=== PATIENT | male | born 1985 | race African-American/Black ===

== ENCOUNTER 2025-08-04 13:00 | Inpatient (IN) | payer OTHER ==
[2025-08-04] VITALS (31 sets, daily range): BP systolic 85–120; BP diastolic 48–100; PULSE 74–92; RESP 12–26; TEMP 97.8–100.6; O2SAT 93–100
[~2025-08-04] VITALS: Ht 177.8 cm; Wt 81.1 kg
--- NOTE | 2025-08-04 13:46 | ED.PDOC ---
History of Present Illness HPI Comments 39-year-old male presents to the ED via EMS for an evaluation of hypotension. [facility]. Initially patient reports that he developed a headache last night, woke up today with pounding pain in which he took an ibuprofen in it relieved it temporarily. He reports after having lunch today, pain presented once associated now with nausea and two episodes of nonbilious nonbloody emesis. At bedside patient's blood pressure is 82/51 and he is complaining of shortness a breath. He denies any chest pain, fever, palpitation, leg swelling. He denies any medical history or allergies. Chief Complaint: Low Blood Pressure Time Seen by MD: 13:27 Reviewed Notes: Nurses Notes, Medications, Allergies Allergies: Coded Allergies: NO KNOWN ALLERGIES (Unverified , 08/04/25) Information Source: Patient, Emergency Med Personnel Mode of Arrival: EMS Severity: Moderate Timing: Hours Duration: Since onset Past Medical History PAST MEDICAL HISTORY: Denies Surgical History: Denies all surgeries Family History Family History: Reviewed,noncontributory to illness Social History Smoker: Non-Smoker Alcohol: Denies ETOH Use Drugs: Denies Drug Use Lives In: Other Constitutional: reports: malaise; denies: chills, diaphoresis, fatigue, fever, sweats, weakness, others EENTM: denies: blurred vision, double vision, ear bleeding, ear discharge, ear drainage, ear pain, ear ringing, eye pain, eye redness, hearing loss, mouth pain, mouth swelling, nasal discharge, nose bleeding, nose congestion, nose pain, photophobia, tearing, throat pain, throat swelling, voice changes, others Respiratory: reports: SOB at rest, shortness of breath; denies: cough, hemoptysis, orthopnea, SOB with excertion, stridor, wheezing, others Cardiovascular: denies: chest pain, dizzy spells, diaphoresis, Dyspnea on exertion, edema, irregular heart beat, left arm pain, lightheadedness, palpitations, PND, syncope, others Gastrointestinal: reports: nausea, vomiting; denies: abdomen distended, abdom inal pain, blood streaked bowels, constipated, diarrhea, dysphagia, difficulty swallowing, hematemesis, melena, poor appetite, poor fluid intake, rectal bleeding, rectal pain, others Genitourinary: denies: burning, dysuria, flank pain, frequency, hematuria, incontinence, penile discharge, penile sore, pain, testicle pain, testicle swelling, urgency, others Neurological: reports: headache; denies: dizziness, fainting, left sided numbness, left sided weakness, numbness, paresthesia, pre-existing deficit, right sided numbness, right sided weakness, seizure, speech problems, tingling, tremors, weakness, others Musculoskeletal: denies: back pain, gout, joint pain, joint swelling, muscle pain, muscle stiffness, neck pain, others Integumetry: denies: bruises, change in color, change in hair/nails, dryness, laceration, lesions, lumps, rash, wounds, others Allergic/Immunocompromised: denies: Difficulty Healing, Frequent Infections, Hives, Itching, others Hematologic/Lymphatic: denies: anemia, blood clots, easy bleeding, easy bruising, swollen glands, others Endocrine: denies: excessive hunger, excessive sweating, excessive thirst, excessive urination, flushing, intolerance to cold, intolerance to heat, unexplained weight gain, unexplained weight loss, others Psychiatric: denies: anxiety, bipolar disorder, depression, hopeless, panic disorder, schizophrenia, sleepless, suicidal, others All Other Systems: Reviewed and Negative Physical Exam General Appearance: Moderate Distress HEENT: Normal ENT Inspection, Pharynx Normal, TMs Normal Neck: Full Range of Motion, Non-Tender, Normal, Normal Inspection Respiratory: Chest Non-Tender, Lungs Clear, No Accessory Muscle Use, No Respiratory Distress, Normal Breath Sounds Cardiovascular: No Edema, No JVD, No Murmur, No Gallop, Normal Peripheral Pulses, Regular Rate/Rhythm Breast Exam: Deferred Gastrointestinal: No Organomegaly, Non Tender, No Pulsatile Mass, Normal Bowel Sounds, Soft Genitalia: Deferred Pelvic: Deferred Rectal: Deferred Extremities: No calf tenderness, Normal capillary refill, Normal inspection, Normal range of motion, Non-tender, No pedal edema Musculoskeletal : Apperance: Normal Neurologic: Alert, director of perioperative services II-XII nml as Tested, No Motor Deficits, Normal Affect, Normal Mood, No Sensory Deficits Cerebellar Function: NOT DONE Reflexes: NOT DONE Skin: Dry, Normal Color, Warm Peripheral Pulses: 3+ Radial (R), 3+ Radial (L) Lymphatic: No Adenopathy Was a procedure done? Was a procedure done?: Yes Sedation Sedation?: No Central Line Recorder of insertion practice: Puppet Master Occupation of pallet stone inserter: Attending Physician Indication: Hypotension, CVP monitoring Room prepared for procedure: Yes Puppet Master performed hand hygien: Yes Maximal sterile barrier precau: Mask/Eye shield, Sterile gown Skin Preparation: Chlorhexidine gluconate, Providine iodine Skin preparation completely dr: Yes Insertion site: Right, Internal jugular Central line catheter type: Kqy-chcomtqs-kmy dialysis Number of lumens: 3 EKG EKG : ST: Inf Differential Dx Considerations may include: Dehydration, electrolyte imbalance, migraines, clustered headaches, viral syndrome, hypotensive X-Ray, Labs, Meds, VS Vital Signs Date Time Temp Pulse Resp B/P (MAP) Pulse Ox O2 Delivery O2 Flow Rate FiO2 08/04/25 14:53 74 08/04/25 13:07 75 08/04/25 13:01 99.0 76 18 74/48 98 99.0 Lab Test 08/04/25 14:55 08/04/25 14:45 08/04/25 14:11 Range/Units SARS-CoV-2 Antigen (Rapid) Pending Influenza Type A Antigen Pending Influenza Type B Antigen Pending White Blood Count 4.3 L 4.4-10.8 10^3/uL Red Blood Count 4.35 L 4.5-5.90 10^6/uL Hemoglobin 12.1 L 13.5-17.5 g/dL Hematocrit 36.9 L 41.0-53.0 % Mean Corpuscular Volume 84.7 80.0-100.0 fL Mean Corpuscular Hemoglobin 27.9 L 28.0-32.0 pg Mean Corpuscular Hemoglobin Concent 32.9 32.0-36.0 g/dL Red Cell Distribution Width 13.8 11.8-14.3 % Platelet Count 191 140-450 10^3/uL Mean Platelet Volume 7.8 6.9-10.8 fL Neutrophils (%) (Auto) 72.2 37.0-80.0 % Lymphocytes (%) (Auto) 17.7 10.0-50.0 % Monocytes (%) (Auto) 9.7 0.0-12.0 % Eosinophils (%) (Auto) 0.2 0.0-7.0 % Basophils (%) (Auto) 0.2 0.0-2.0 % Neutrophils # (Auto) 3.1 1.6-8.6 10 ^3/uL Lymphocytes # (Auto) 0.8 0.4-5.4 10 ^3/uL Monocytes # (Auto) 0.4 0-1.3 10 ^3/uL Eosinophils # (Auto) 0 0-0.8 10 ^3/uL Basophils # (Auto) 0 0-0.2 10 ^3/uL Nucleated Red Blood Cells 0.1 % Sodium Level 142 136-145 mmol/L Potassium Level 4.3 3.5-5.1 mmol/L Chloride Level 109 H 98-107 mmol/L Carbon Dioxide Level 23 20-31 mmol/L Anion Gap 10 5-15 Blood Urea Nitrogen 22 9-23 mg/dL Creatinine 1.08 0.700-1.30 mg/dL Glomerular Filtration Rate Calc 91 >90 mL/min BUN/Creatinine Ratio 20.4 H 10.0-20.0 Serum Glucose 115 H 74-106 mg/dL Hemoglobin A1c Pending Calcium Level 8.6 L 8.7-10.4 mg/dL Total Bilirubin 0.5 0.2-1.0 mg/dL Aspartate Amino Transferase (AST) 107 H 13-40 U/L Alanine Aminotransferase (ALT) 27 7-40 U/L Alkaline Phosphatase 82 46-116 U/L Troponin I High Sensitivity 83450 *H </=54 ng/L Total Protein 6.1 5.7-8.2 g/dL Albumin 3.6 3.2-4.8 g/dL Thyroid Stimulating Hormone (TSH) Pending Free Thyroxine (T4) Calculated Pending Current Medications Medications (Trade) Dose Ordered Sig/Luan Route Start Time Stop Time Status Last Admin Sodium Chloride 1,000 ml @ 1,000 mls/hr Q1H ONCE IV 08/04/25 14:00 08/04/25 14:59 DC 08/04/25 14:09 Heparin Sodium (Porcine) 5,000 units ONCE ONCE IV 08/04/25 14:45 08/04/25 14:46 DC 08/04/25 15:05 Aspirin 325 mg ONCE ONCE PO 08/04/25 14:45 08/04/25 14:46 DC 08/04/25 15:04 Patient alert. Generalized symptoms. Blood pressure low. Saturation pristine on room air. Establish intravenous access. Was given fluids. Heart rate within normal limits. Unknown why he has low blood pressure. Possible viral induced. EKG does show ischemic changes pain Started heparin. Placed a central line. Cardiac marker elevated. Cardiology consultation. Explained to the patient. Continue monitoring. Time of 1ST Reevaluation: 13:45 Reevaluation 1ST: Unchanged Patient Education/Counseling: Diagnosis, Treatment, Prognosis Family Education/Counseling: No Family Present SEPSIS Sepsis Screen Date sepsis recognized/suspect: Aug 04, 2025 Time Sepsis recognized/suspect: 1300 Recent Procedure: No On Antibiotic Therapy: No Respiratory Rate >20: No Heart Rate >90: No Temp<36 C (96.8 F) or >38.3 C: No SBP <90 or MAP <65 mmHG: No New Acute Mental Status Change: No Is the patient on CPAP, BIPAP,: No Physician Orders Electrocardigram (08/04/25 13:09) Rapid Influenza A&B (08/04/25 14:00) Covid19 Antigen Sarah (08/04/25 ) Chest Portable (08/04/25 14:00) Urinalysis (08/04/25 14:00) Sodium Chloride 0.9% (08/04/25 14:00) * Cardiology Consult (08/04/25 14:44) Troponin-I Hs (08/04/25 14:44) Electrocardigram (08/04/25 14:44) Troponin-I Hs (08/04/25 15:44) Electrocardigram (08/04/25 15:44) Electrocardigram (08/04/25 17:44) Ct Ab Pel Wo Con-No Oral Or Iv (08/04/25 14:58) Echo 2d Mode Cardiac Dop (08/04/25 15:03) Head Without Contrast (08/04/25 15:13) Obtain Consent For: (08/04/25 15:13) Hold Enoxaparin Day Of Procedu (08/05/25 00:01) D/C Tlc (08/04/25 15:13) Shave Both Groins (08/04/25 15:13) Provide Education Materials (08/04/25 15:13) Obtain Consent For Anesthesia (08/04/25 15:13) Norepinephrine 8 Mg/250ml Kit (Levophed) (08/04/25 15:30) Cl Left Heart Cath (08/04/25 15:21) Admit (08/04/25 15:) Code Status (08/04/25:) Vital Signs .PER UNIT PROTOCOL (08/04/25:) Insurance Instructor (08/04/25:) Aspirin Chewable Tablet (08/05/25 10:00) Atorvastatin (Lipitor) (08/04/25 22:00) Morphine Sulfate Injection (08/04/25 15:30) Acetaminophen Tablet (Tylenol Tablet) (08/04/25 15:30) Complete Blood Count (08/05/25 04:00) Basic Metabolic Panel (08/05/25 04:00) Magnesium (08/05/25 04:00) Lipid Panel (08/05/25 04:00) Nitroglycerin Sublingual (Ntrostat Subli (08/04/25:30) Ondansetron Hcl (Zofran) (08/04/25 15:30) Electrocardigram (08/05/25 04:00) Troponin-I Hs (08/05/25 04:00) Cardiac Rehabilitation - Outpa (08/04/25 ) Nitroglycerin Sublingual (Ntrostat Subli (08/04/25 15:30) Morphine Sulfate Injection (08/04/25:30) Stat Ekg For Chest Pain (08/04/25:) Notify Of Changes From Base (08/04/25:) Duplicating Machine Servicer For 24 Hours (08/04/25 15:) Emergency Dysrhythmia Protocol (08/04/25:) Rhythm Strips Once Every Shift (08/04/25:) Oxygen By Nasal Cannula (08/04/25:) Thyroid Stimulating Hormone (08/04/25:) Free T4 (Free Thyroxine) (08/04/25:) Hemoglobin A1c (08/04/25:) Urinalysis (08/04/25:) Drug Screen (08/04/25:) Vital Signs Date Time Temp Pulse Resp B/P (MAP) Pulse Ox O2 Delivery O2 Flow Rate FiO2 08/04/25 14:53 74 08/04/25 13:07 75 08/04/25 13:01 99.0 76 18 74/48 98 99.0 Laboratory Tests Test 08/04/25 14:11 White Blood Count 4.3 10^3/uL (4.4-10.8) L Medications Medications Dose Ordered Sig/Luan Route Start Time Stop Time Status Last Admin Dose Admin Aspirin 325 mg ONCE ONCE PO 08/04/25 14:45 08/04/25 14:46 DC 08/04/25 15:04 Heparin Sodium (Porcine) 5,000 units ONCE ONCE IV 08/04/25 14:45 08/04/25 14:46 DC 08/04/25 15:05 Sodium Chloride 1,000 ml @ 1,000 mls/hr Q1H ONCE IV 08/04/25 14:00 08/04/25 14:59 DC 08/04/25 14:09 Departure 1 Departure Time of Disposition: 14:14 Impression: Primary Impression: Hypotension Qualified Codes: I95.9 - Hypotension, unspecified Additional Impression: NSTEMI (non-ST elevated myocardial infarction) Disposition: ADMITTED INPATIENT Admit to: Med Surg Condition: Guarded Critical Care Note Critical Care Time?: Yes (90 min-critical care time only) Stability Stability form required: No I personally scribed for STARLA ATKINS MD ([email or web address]) on 08/04/25 at 13:46. Electronically submitted by Christine De Jesus ([facility]). STALRA ATKINS MD Aug 04, 2025 13:46
[2025-08-04] MEDS ORDERED: SODIUM CHLORIDE 0.9% 1,000 ML IV ONE (14:00)
[2025-08-04] MEDS: SODIUM CHLORIDE 0.9% 1,000 ML IV ONE (14:09)
[2025-08-04 14:22] LABS: Hematocrit 36.9 % (41.0-53.0); Hemoglobin 12.1 g/dL (13.5-17.5); Mean Corpuscular Hemoglobin 27.9 pg (28.0-32.0); Mean Corpuscular Volume 84.7 fL (80.0-100.0); Nucleated Red Blood Cells % 0.1 %
--- NOTE | 2025-08-04 14:30 | DVH ---
INDICATION: sob TECHNIQUE: Frontal view of the chest. COMPARISON: None FINDINGS: . The heart and mediastinal contours are grossly unremarkable. There is no evidence of pleural disease. The lungs are clear. The bony structures of the chest are intact without fracture. IMPRESSION: 1. No evidence of acute disease.
[2025-08-04 14:36] LABS: Alanine Aminotransferase 27 U/L (7-40); Albumin 3.6 g/dL (3.2-4.8); Alkaline Phosphatase 82 U/L (46-116); Anion Gap 10 (5-15); BUN/Creatinine Ratio 20.4 (10.0-20.0); Blood Urea Nitrogen 22 mg/dL (9-23); Carbon Dioxide 23 mmol/L (20-31); Potassium 4.3 mmol/L (3.5-5.1); Sodium 142 mmol/L (136-145); Total Protein 6.1 g/dL (5.7-8.2)
[2025-08-04 14:37] LABS: Bilirubin, Total 0.5 mg/dL (0.2-1.0); Calcium 8.6 mg/dL (8.7-10.4); Chloride 109 mmol/L (98-107); Glucose 115 mg/dL (74-106)
[2025-08-04] MEDS: HEPARIN SODIUM (PORCINE) 5000 UNITS/ML 1ML VIAL IV ONE (14:45)
[2025-08-04] MEDS: HEPARIN IN NS 1000Units/500mL 1,500 ML ONE (15:23)
[2025-08-04] MEDS: IODIXANOL 320MG/ML 100ML BTL IV ONE (15:23)
[2025-08-04] MEDS: VERAPAMIL 2.5MG/ML INJ 2ML VIAL IV ONE (15:25)
[2025-08-04] MEDS: ANGIOMAX 250 MG VIAL IV ONE (15:25)
[2025-08-04] MEDS: fentaNYL CITRATE 100 MCG/2 ML VL ONE (15:25)
[2025-08-04] MEDS: SODIUM CHL 0.9% 50 ML ONE (15:26)
[2025-08-04] MEDS: MIDAZOLAM HCL 2MG/2ML 2ml VIAL (1mg/ml) ONE (15:26)
[2025-08-04] MEDS: LIDOCAINE 2%HCL (LOCAL ANESTH.) INJ 20ML MDV ONE (15:26)
[2025-08-04] MEDS ORDERED: NITROGLYCERIN 0.4 MG SL TAB SL PRN (15:30)
[2025-08-04] MEDS ORDERED: MORPHINE SULFATE INJ 2 MG/ml SYRG IV PRN (15:30)
[2025-08-04] MEDS ORDERED: MORPHINE SULFATE 4 MG/ML SYR/VIAL IV PRN (15:30)
[2025-08-04 15:42] LABS: COVID19 ANTIGEN SOFIA FIA NEGATIVE (NEGATIVE)
--- NOTE | 2025-08-04 15:42 | DVHHP2 ---
History of Present Illness Reason for Visit: Chest pain with nausea and vomiting and headache History of Present Illness Ankur Wiggins is a 39-year-old male with no past medical history who presents to the ED with chest pain, nausea, and vomiting that started yesterday. Patient reports that he is incarcerated and symptoms began yesterday around 9:00 a.m. after he ate potatoes and spread. Patient reports the chest pain 9/10 pressure- like and intermittent, nonradiating. Patient also reports that his headache is 9/10 feels like a migraine in his constant in nature. He reports that there are no triggering or alleviating factors. Patient also reports that there are 2 other inmates that have the same symptoms that he has. Initial 12 lead EKG shows normal sinus rhythm with ST segment depression to inferior leads and baseline wander in leads V2 and V5. [place] [address] with lactate of 259. Patient denies tobacco use, drug use, or alcohol use. Patient denies recent trauma or injury, recent travels, recent ingestion of spoiled food, fever, chills, weakness, dizziness, abdominal pain, diarrhea, or urinary symptoms. Officer at bedside. Past Surgical History: None Family History: None Smoke: No ALCOHOL: none Drugs: None Lives: Other (Incarcerated) Domestic Violence: Neg Review of Systems Constitutional: Yes: Other (Headache) Cardiovascular: Chest Pain Gastrointestinal: Nausea, Vomiting Allergies: Coded Allergies: NO KNOWN ALLERGIES (Unverified , 08/04/25) Medications Current Medications Medications Dose Ordered Sig/Luan Route Start Time Stop Time Status Last Admin Dose Admin Norepinephrine Bitartrate 250 ml @ 3.75 mls/hr Q24H IV 08/04/25 15:30 Exam Vital Signs Vital Signs Date Time Temp Pulse Resp B/P (MAP) Pulse Ox O2 Delivery O2 Flow Rate FiO2 08/04/25 14:53 74 08/04/25 13:01 99.0 18 74/48 98 99.0 General Appearance: Alert, Oriented X3, Cooperative, No acute distress HEENT: Atraumatic, PERRLA, EOMI, Mucous membr. moist/pink Respiratory: Normal air movement Cardiovascular: Regular rate, Normal S1, Normal S2, No murmurs Abdominal: Normal bowel sounds, Soft, No tenderness, No hepatospenomegaly, No masses Extremities: No clubbing, No cyanosis, No edema, Normal pulses Skin: No significant lesion Neuro: Normal gait, Normal speech, Strength at 5/5 X4 ext, Normal tone, Sensation intact Psych/Mental Status: Mental status NL, Mood NL Labs/Xrays Labs Test 08/04/25 14:55 08/04/25 14:45 08/04/25 14:11 Range/Units White Blood Count 4.3 L 4.4-10.8 10^3/uL Red Blood Count 4.35 L 4.5-5.90 10^6/uL Hemoglobin 12.1 L 13.5-17.5 g/dL Hematocrit 36.9 L 41.0-53.0 % Mean Corpuscular Volume 84.7 80.0-100.0 fL Mean Corpuscular Hemoglobin 27.9 L 28.0-32.0 pg Mean Corpuscular Hemoglobin Concent 32.9 32.0-36.0 g/dL Red Cell Distribution Width 13.8 11.8-14.3 % Platelet Count 191 140-450 10^3/uL Mean Platelet Volume 7.8 6.9-10.8 fL Neutrophils (%) (Auto) 72.2 37.0-80.0 % Lymphocytes (%) (Auto) 17.7 10.0-50.0 % Monocytes (%) (Auto) 9.7 0.0-12.0 % Eosinophils (%) (Auto) 0.2 0.0-7.0 % Basophils (%) (Auto) 0.2 0.0-2.0 % Neutrophils # (Auto) 3.1 1.6-8.6 10 ^3/uL Lymphocytes # (Auto) 0.8 0.4-5.4 10 ^3/uL Monocytes # (Auto) 0.4 0-1.3 10 ^3/uL Eosinophils # (Auto) 0 0-0.8 10 ^3/uL Basophils # (Auto) 0 0-0.2 10 ^3/uL Nucleated Red Blood Cells 0.1 % Sodium Level 142 136-145 mmol/L Potassium Level 4.3 3.5-5.1 mmol/L Chloride Level 109 H 98-107 mmol/L Carbon Dioxide Level 23 20-31 mmol/L Anion Gap 10 5-15 Blood Urea Nitrogen 22 9-23 mg/dL Creatinine 1.08 0.700-1.30 mg/dL Glomerular Filtration Rate Calc 91 >90 mL/min BUN/Creatinine Ratio 20.4 H 10.0-20.0 Serum Glucose 115 H 74-106 mg/dL Calcium Level 8.6 L 8.7-10.4 mg/dL Total Bilirubin 0.5 0.2-1.0 mg/dL Aspartate Amino Transferase (AST) 107 H 13-40 U/L Alanine Aminotransferase (ALT) 27 7-40 U/L Alkaline Phosphatase 82 46-116 U/L Troponin I High Sensitivity 60517 *H </=54 ng/L Total Protein 6.1 5.7-8.2 g/dL Albumin 3.6 3.2-4.8 g/dL SEPSIS Sepsis Screen Date sepsis recognized/suspect: Aug 04, 2025 Time Sepsis recognized/suspect: 1300 Recent Procedure: No On Antibiotic Therapy: No Respiratory Rate >20: No Heart Rate >90: No Temp<36 C (96.8 F) or >38.3 C: No SBP <90 or MAP <65 mmHG: No New Acute Mental Status Change: No Is the patient on CPAP, BIPAP,: No Physician Orders Electrocardigram (08/04/25 13:09) Rapid Influenza A&B (08/04/25 14:00) Covid19 Antigen Sarah (08/04/25 ) Chest Portable (08/04/25 14:00) Urinalysis (08/04/25 14:00) Sodium Chloride 0.9% (08/04/25 14:00) * Cardiology Consult (08/04/25 14:44) Troponin-I Hs (08/04/25 14:44) Electrocardigram (08/04/25 14:44) Troponin-I Hs (08/04/25 15:44) Electrocardigram (08/04/25 15:44) Electrocardigram (08/04/25 17:44) Ct Ab Pel Wo Con-No Oral Or Iv (08/04/25 14:58) Echo 2d Mode Cardiac Dop (08/04/25 15:03) Head Without Contrast (08/04/25 15:13) Obtain Consent For: (08/04/25 15:13) Hold Enoxaparin Day Of Procedu (08/05/25 00:01) D/C Tlc (08/04/25 15:13) Shave Both Groins (08/04/25 15:13) Provide Education Materials (08/04/25 15:13) Obtain Consent For Anesthesia (08/04/25 15:13) Norepinephrine 8 Mg/250ml Kit (Levophed) (08/04/25 15:30) Cl Left Heart Cath (08/04/25 15:21) Vital Signs Date Time Temp Pulse Resp B/P (MAP) Pulse Ox O2 Delivery O2 Flow Rate FiO2 08/04/25 14:53 74 08/04/25 13:07 75 08/04/25 13:01 99.0 76 18 74/48 98 99.0 Laboratory Tests Test 08/04/25 14:11 White Blood Count 4.3 10^3/uL (4.4-10.8) L Medications Medications Dose Ordered Sig/Luan Route Start Time Stop Time Status Last Admin Dose Admin Aspirin 325 mg ONCE ONCE PO 08/04/25 14:45 08/04/25 14:46 DC 08/04/25 15:04 325 MG Heparin Sodium (Porcine) 5,000 units ONCE ONCE IV 08/04/25 14:45 08/04/25 14:46 DC 08/04/25 15:05 5,000 UNITS Sodium Chloride 1,000 ml @ 1,000 mls/hr Q1H ONCE IV 08/04/25 14:00 08/04/25 14:59 DC 08/04/25 14:09 1,000 MLS/HR Assessment/Plan Assessment/Plan Assessment NSTEMI Cardiogenic shock Plan Admit to ICU Vasopressors to keep maps greater than 65 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 Trend troponins Heparin drip CT head Echo Chest x-ray Heparin bolus dose given in ED Aspirin + statin NS 2 L given in ED Flu test COVID test NPO Resume diet once cardio clears No home medications per patient DVT prophylaxis-on heparin drip PUD prophylaxis-PPIs [place] [id number] Preventive counseling healthy eating habits, physical activity, and regular checkups Plan discussed with: Patient Date of Service: Aug 04, 2025 Billing Provider: ZORA BRITO Common Visit Codes: [id number] INP/OBS CARE (HIGH) Secondary Visit Codes: [id number] COUNSELING IND ZORA BRITO Aug 04, 2025 15:42
[2025-08-04] MEDS: HEPARIN DRIP/D5W 100UNITS/ML 250 ML IV SCH (15:45)
--- NOTE | 2025-08-04 15:49 | DVHINCON2 ---
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 The patient is incarcerated and reports that symptoms began yesterday at the facility. He describes the chest pain as unprovoked, intermittent, pressure-like in nature, midsternal and nonradiating. Associated symptoms include shortness of breath, lightheadedness, nausea, and vomiting. The patient was brought to the emergency room for further evaluation. Initial twelve lead electrocardiogram reveals normal sinus rhythm with ST segment depression to inferior leads and baseline wander in leads V2 and V5. [place] of [address]22ga/L. Upon emergency room arrival, the patient's blood pressure was noted to be as low as 74/48. Patient denies any previous medical history. He does not take any prescribed medications or zbsa-mfz-ypzteyc drugs. Past Medical History Past medical history reviewed. No other significant than mentioned above. Past Surgical History Denies any previous surgery Family History Family history reviewed. Social History Denies the use of tobacco, alcohol or illicit drugs. Allergies: Coded Allergies: NO KNOWN ALLERGIES (Unverified , 08/04/25) Home Meds Denies taking any prescribed medications Current Medications Current Medications Medications (Trade) Dose Ordered Sig/Luan Route PRN Reason Start Time Stop Time Status Last Admin Norepinephrine Bitartrate 250 ml @ 3.75 mls/hr Q24H IV 08/04/25 15:30 Aspirin 81 mg DAILY PO 08/05/25 10:00 UNV Atorvastatin Calcium (Lipitor) 40 mg HS PO 08/04/25 22:00 UNV Morphine Sulfate 2 mg Q30MP PRN IV FOR CHEST PAIN 08/04/25 15:30 UNV Acetaminophen (Tylenol Tablet) 650 mg Q6HP PRN PO MILD PAIN (1-3 PAIN SCALE) 08/04/25 15:30 UNV Nitroglycerin (Ntrostat Sublingual) 0.4 mg Q5MINP PRN SL FOR CHEST PAIN 08/04/25 15:30 UNV Ondansetron HCl (Zofran) 4 mg Q4HP PRN IV NAUSEA / VOMITING 08/04/25 15:30 UNV Nitroglycerin (Ntrostat Sublingual) 0.4 mg Q5MINP PRN SL FOR CHEST PAIN 08/04/25 15:30 UNV Morphine Sulfate 2 mg Q30M PRN IV FOR CHEST PAIN 08/04/25 15:30 UNV Heparin Sodium/ Dextrose 250 ml @ 10.08 mls/ hr Q24H IV 08/04/25 15:45 UNV Review of Systems Constitutional: No symptom reported Ears, Nose, & Throat: No symptom reported Eyes: No symptom reported Neurological: Dizziness Pulmonary/Respiratory: Shortness of breath Cardiovascular: Chest pain Gastrointestinal: Nausea and vomiting Genitourinary: No symptom reported Musculoskeletal: No symptom reported Skin: No symptom reported Psychiatric: No symptom reported Endocrine: No symptom reported Hematologic/Lymphatic: No symptom reported Vital Signs Vital Signs Date Time Temp Pulse Resp B/P (MAP) Pulse Ox O2 Delivery O2 Flow Rate FiO2 08/04/25 14:53 74 08/04/25 13:01 99.0 18 74/48 98 99.0 Physical Exam General Appearance: Cooperative. Pulmonary/Respiratory: Clear, bilateral breaths sounds. Cardiovascular/Chest: Regular rate and rhythm. Peripheral Pulses: 2+ Radial (R). 2+ Radial (L). 2+ Pedal (R). 2+ Pedal (L) Abdominal Exam: Normal bowel sounds. Ankle Exam: Negative ankle edema Lower extremities: Negative lower extremity edema Neuro/Mental Status: A/OX4, coherent. Thoughts/Psych: Normal thought pattern. Appropriate mood and affect. Good judgment and insight. Appearance: No acute distress. Skin Exam: Pale, clammy Labs/Diagnostic Data Labs Test 08/04/25 14:55 08/04/25 14:45 08/04/25 14:11 Range/Units White Blood Count 4.3 L 4.4-10.8 10^3/uL Red Blood Count 4.35 L 4.5-5.90 10^6/uL Hemoglobin 12.1 L 13.5-17.5 g/dL Hematocrit 36.9 L 41.0-53.0 % Mean Corpuscular Volume 84.7 80.0-100.0 fL Mean Corpuscular Hemoglobin 27.9 L 28.0-32.0 pg Mean Corpuscular Hemoglobin Concent 32.9 32.0-36.0 g/dL Red Cell Distribution Width 13.8 11.8-14.3 % Platelet Count 191 140-450 10^3/uL Mean Platelet Volume 7.8 6.9-10.8 fL Neutrophils (%) (Auto) 72.2 37.0-80.0 % Lymphocytes (%) (Auto) 17.7 10.0-50.0 % Monocytes (%) (Auto) 9.7 0.0-12.0 % Eosinophils (%) (Auto) 0.2 0.0-7.0 % Basophils (%) (Auto) 0.2 0.0-2.0 % Neutrophils # (Auto) 3.1 1.6-8.6 10 ^3/uL Lymphocytes # (Auto) 0.8 0.4-5.4 10 ^3/uL Monocytes # (Auto) 0.4 0-1.3 10 ^3/uL Eosinophils # (Auto) 0 0-0.8 10 ^3/uL Basophils # (Auto) 0 0-0.2 10 ^3/uL Nucleated Red Blood Cells 0.1 % Sodium Level 142 136-145 mmol/L Potassium Level 4.3 3.5-5.1 mmol/L Chloride Level 109 H 98-107 mmol/L Carbon Dioxide Level 23 20-31 mmol/L Anion Gap 10 5-15 Blood Urea Nitrogen 22 9-23 mg/dL Creatinine 1.08 0.700-1.30 mg/dL Glomerular Filtration Rate Calc 91 >90 mL/min BUN/Creatinine Ratio 20.4 H 10.0-20.0 Serum Glucose 115 H 74-106 mg/dL Calcium Level 8.6 L 8.7-10.4 mg/dL Total Bilirubin 0.5 0.2-1.0 mg/dL Aspartate Amino Transferase (AST) 107 H 13-40 U/L Alanine Aminotransferase (ALT) 27 7-40 U/L Alkaline Phosphatase 82 46-116 U/L Troponin I High Sensitivity 02204 *H </=54 ng/L Total Protein 6.1 5.7-8.2 g/dL Albumin 3.6 3.2-4.8 g/dL Assessment NSTEMI, rule out coronary artery disease Cardiogenic shock Rule out structural heart disease Plan/Recommendation We will continue with the following plan/recommendations (Dr. Samson): Case reviewed and discussed with . Given the patient's clinical present ation, twelve lead electrocardiogram changes, and significantly elevated troponin level, we will recommend for the patient to undergo a coronary angiogram with left heart catheterization.The procedure was discussed with the patient in full detail including risks and benefits. Risks include but are not limited to bleeding, contrast-induced nephropathy, coronary dissection, stroke, and even . The patient understands and is agreeable to undergo the procedure. We will schedule the patient at soonest availability. In the meantime, a stat transthoracic echocardiogram we will be ordered to evaluate cardiac function. Initiate vasopressor therapy for hemodynamic support if needed. Continue with close cardiac surveillance. Thank you for allowing us to care for this patient. Please call with any questions or concerns. Critical care time spent: 44 minutes This medical document was created using an electronic medical record system with voice recognition software and computerized dictation system. Although this document has been carefully reviewed, there might still be some phonetic and typographical errors. Occasional wrong-word or ``sound-alike substitutions may have occurred due to the inherent limitations of voice recognition software. These areas are purely typographical due to imperfections of the software programs and do not reflect any compromise in the patient's medical care. Please read the chart carefully and recognize, using context, where these substitutions have occurred. Plan discussed with: Patient NYHA Physical activity limitations: NA Date of Service: Aug 04, 2025 Billing Provider: COLE ESTRELLA Cardiology Common Codes: [id number] INP/OBS CARE (High) Cardiology Consultation Codes: [id number] CONSULT <45MIN ONELIA SAMSON MD 08/04/25 1712: Allergies: Coded Allergies: NO KNOWN ALLERGIES (Unverified , 08/04/25) Plan/Recommendation pt seen with ANGEL estrella agree with plan stat eval, stat head ct (per dr kim it is negative), abd ct is pending, no recent illness low BP but no gap acidosis cath done stat no severe cad, stat echo shows moderate LV dysfunction iv lasix for high lvedp consider tx to higher level of care if pt may need ecmo or mechanical support Plan discussed with: Patient COLE ESTRELLA Aug 04, 2025 15:49 ONELIA SAMSON MD Aug 04, 2025 17:12
[2025-08-04 16:03] LABS: Alanine Aminotransferase 26 U/L (7-40); Alkaline Phosphatase 83 U/L (46-116)
--- NOTE | 2025-08-04 16:07 | DVHSR ---
APPROVED REPORT EXAM: Two-dimensional and M-mode echocardiogram with Doppler and color Doppler. Blood Pressure: 86/53 mmHg INDICATION Chest Pain RISK FACTORS Height: 5' 10", Weight: 185 DIMENSIONS LVDd 4.6 (3.8-5.7cm) LA (2D) 4.4 (1.9-4.0cm) Aortic Root 3.5 (2.0-3.7cm) LVDs 3.7 (2.5-4.0cm) LA (MM) (1.9-4.0cm) Aortic Cusp Exc 2.0 (1.5-2.0cm) EF (%) 43.0 (55-70%) Rt. Atrium 4.4 (1.9-4.0cm) Asc. Aorta cm IVSd 1.4 (0.7-1.1cm) RV (D) (1.8-2.4cm) PWd 1.5 (0.7-1.1cm) Mitral Valve Mitral Mitral Stenosis E wave 0.70m/s MV Mean GR. mmHg A wave 0.60m/s MV Peak GR. mmHg E/A ratio 1.2 2D MVA cm2 Aortic Valve Aortic Valve Aortic Stenosis V1 0.80m/s AO Mean GR. 3mmHg V2 1.00m/s AO Peak GR. 4mmHg LVOT Diameter 2.4 (1.8-2.4cm) Doppler CHANG 3.62cm2 Tricuspid Valve TR Velocity 2.20m/s RVSP 30mmHg Conclusion lvef 40% global dysfunction, basal inferolateral wall is hypokinetic RV not well seen normal atria no severe valve abnormality noted limited study quality
[2025-08-04 16:08] LABS: INR 1.12 (0.9-1.15); Partial Thromboplastin Time 30.7 SEC (24.5-34.5); Prothrombin Time 11.7 sec (9.3-11.8)
[2025-08-04] MEDS: NOREPINEPHRINE 8 MG/250ML KIT 250 ML IV ONE (16:46)
[2025-08-04] MEDS: FUROSEMIDE 20 MG/2 ML VIAL ONE (16:47)
[2025-08-04] MEDS: HEPARIN SODIUM (PORCINE) 5000 UNITS/ML 1ML VIAL ONE (16:47)
--- NOTE | 2025-08-04 16:51 | DVH ---
CLINICAL HISTORY: headache TECHNIQUE: Helical imaging carried out from skull base to vertex without intravenous contrast. This exam was performed according to our departmental dose optimization program. Up-to-date CT equipment and radiation dose reduction techniques are utilized as appropriate. CTDIVol: 62.01 mGy DLP: 1221.84 mGy-cm WID: COMPARISON: None FINDINGS: The ventricles and subarachnoid spaces are normal in size and configuration. There is no midline shift or mass effect. The rogers white matter interfaces are maintained. The basal cisterns are patent. There is no evidence of acute intracranial hemorrhage or extra-axial fluid collection. The mastoid air cells and visualized paranasal sinuses are well-aerated aside from a mucous retention cyst or polyp in the right maxillary sinus. IMPRESSION: 1. No acute intracranial abnormality.
--- NOTE | 2025-08-04 16:54 | DVHOP2 ---
Operative Report Operative Report CARDIAC [facility] PROCEDURE REPORT [place], [place] Date of Service: 08/04/25 Legal Compliance Officer: Onelia Samson MD PROCEDURES PERFORMED: Coronary angiogram, left heart catheterization, conscious sedation administration and supervision, less than 15 minutes; fluoroscopy use and interpretation. US guided vascular access saved to pacs PREOPERATIVE DIAGNOSES: high risk nstemi, cardiogenic shock POSTOP DIAGNOSIS: shock, myocarditis DESCRIPTION OF PROCEDURE: The patient or appropriate family signed informed consent understanding the risks, benefits and alternatives of the procedure, they wished to proceed. The patient was brought to the cardiac slab tripper in n.p.o. state. The patient was prepped in a sterile fashion. Sedation was used per cardiac cath protocol. sedation was not given as pt had bp of 80s to 90s and i started levophed. I administered 2 mL of 2% lidocaine to the right wrist. With an antegrade front wall puncture using US guidance . I cannulated the right radial artery and placed a 6-Swiss Glidesheath slender. Next, an intra-arterial spasmolytic was administered. Next, a - 6French Canvas catheter and pigtail and were used for coronary angiogram and LVEDP measurement and pressure pullback. At the completion of procedure, all guides and wires were removed, and there were no immediate complications. 4000 U of IV heparin given. FINDINGS: RCA: Moderate vessel off the right sinus of Valsalva, there is no severe flow limiting stenosis. dominant vessel LEFT MAIN: Moderate size left main, it bifurcates into LAD and circumflex. no s tenosis CIRCUMFLEX: Moderate caliber vessel coming off the left main with no flow limiting stenosis. LAD: LAD is a moderate caliber vessel coming of the left main. no stenosis. sluggihs flow suggestive of microvascular disease vs low coronary perfusion pressure LVEDP of 28 mmhg narrow pulse pressure CONCLUSIONS: 1. no significant CAD 2. myocarditis with shock /pt on pressors prior to C 3 elevated LVEDP PLAN: Aggressive risk factor modification and medical management for the patient. admit to ICU pressors IV lasix if pt decompensates, he will need to be tx to higher level center for ecmo /advanced therapy which is out of our scope ONELIA SAMSON MD Aug 04, 2025 16:54
[2025-08-04] MEDS: NOREPINEPHRINE 8 MG/250ML KIT 250 ML IV SCH (17:10)
--- NOTE | 2025-08-04 17:40 | DVH ---
Exam: CT CT AB PEL WO CON-NO ORAL OR IV History: Abnormal blood Comparison Study: None TECHNIQUE: Multidetector CT of the abdomen and pelvis without IV contrast. Axial, coronal and sagittal multiplanar reformats were obtained from the axial data set by the technologist. Radiation Dose Information: CT Dose: CTDI volume is 7.9 mGy. Dose-length product is 3.92 mGy*cm FINDINGS: Bibasilar atelectasis. Partially visualized heart is unremarkable. Mild hepatosplenomegaly, liver, spleen, pancreas and adrenal glands are unremarkable. Sludge/ gallstone within the gallbladder. Limited evaluation for pericholecystic edema given mesenteric edema. 1.2 cm right renal lower pole cyst. Otherwise, kidneys, ureters and urinary bladder unremarkable. Prostate is unremarkable. Stomach is unremarkable. Small bowel loops are unremarkable. Appendix is unremarkable. Moderate to large amount of fecal material within the colon with rectal fecal impaction. No evidence of Intraperitoneal free air. Mild mesenteric edema. No evidence of aortic aneurysm. No significant lymphadenopathy. Minimal body wall edema. No evidence of acute osseous abnormalities. IMPRESSION: No evidence of Acute abdominopelvic abnormalities. Lateral sludge/ gallstone within the gallbladder. Right upper quadrant ultrasound should be considered for further evaluation. Constipation. Mild mesenteric edema. Small right renal cyst.
[2025-08-04] MEDS: PANTOPRAZOLE 40 MG/10 ML VIAL INJ IV SCH (17:50)
--- NOTE | 2025-08-04 19:07 | ECG ---
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
[2025-08-04 20:36] LABS: Amphetamine Screen, Urine Neg (NEGATIVE); Barbiturate Scree,Urine Neg (NEGATIVE); Benzodiazephine Screen, Urine Neg (NEGATIVE); Cannabinoid Screen, Urine Neg (NEGATIVE); Cocaine Screen, Urine Neg (NEGATIVE); Opiate Scree,Urine Neg (NEGATIVE); Phencyclidine Screen, Urine Neg (NEGATIVE); Urine Protein, UAD Negative (Negative)
[2025-08-04] MEDS: ACETAMINOPHEN 325 MG TAB PO PRN (22:44)
[2025-08-04] MEDS: ATORVASTATIN 20 MG TAB PO SCH (22:44)
[2025-08-04 23:36] LABS: INR 1.14 (0.9-1.15); Partial Thromboplastin Time 30.6 SEC (24.5-34.5); Prothrombin Time 11.9 sec (9.3-11.8)
[2025-08-05] VITALS (95 sets, daily range): BP systolic 75–118; BP diastolic 29–85; PULSE 65–98; RESP 11–25; TEMP 98.1–98.6; O2SAT 79–100
[2025-08-05 04:20] LABS: Hematocrit 35.4 % (41.0-53.0); Hemoglobin 11.9 g/dL (13.5-17.5); Mean Corpuscular Hemoglobin 28.0 pg (28.0-32.0); Mean Corpuscular Volume 83.2 fL (80.0-100.0); Nucleated Red Blood Cells % 0.1 %
[2025-08-05 04:28] LABS: Potassium 4.2 mmol/L (3.5-5.1); Sodium 142 mmol/L (136-145)
[2025-08-05 04:29] LABS: Anion Gap 9 (5-15); Carbon Dioxide 24 mmol/L (20-31)
[2025-08-05 04:34] LABS: Glucose 105 mg/dL (74-106); Triglycerides 67 mg/dL (< 150)
[2025-08-05 04:35] LABS: BUN/Creatinine Ratio 15.1 (10.0-20.0); Blood Urea Nitrogen 18 mg/dL (9-23); Magnesium 1.9 mg/dL (1.6-2.6)
[2025-08-05 04:36] LABS: Cholesterol 118 mg/dL (< 200)
[2025-08-05 04:43] LABS: Calcium 8.6 mg/dL (8.7-10.4); Chloride 109 mmol/L (98-107); HDL Cholesterol 32 mg/dL (40-59)
[2025-08-05] MEDS: FUROSEMIDE 40 MG/4 ML VIAL IV ONE (06:27)
[2025-08-05] MEDS: DOPamine 1600MCG/ML D5W 250 ML IV SCH (06:27)
[2025-08-05] MEDS: methylPREDNISolone SOD SUCC 500 MG in SODIUM CHL 0.9% 100 ML IV ONE (13:20)
--- NOTE | 2025-08-05 14:00 | DVHPN2 ---
Progress Note Date Seen: Aug 05, 2025 Medical Necessity Reason Pt with a Central, PICC or Fol: Yes Subjective Patient reports: Feels better Objective vital signs Vital Sign Date Time Temp Pulse Resp B/P (MAP) Pulse Ox O2 Delivery O2 Flow Rate FiO2 08/05/25 12:00 20 97 Room Air* 0 21 08/05/25 12:00 78 08/05/25 12:00 98.4 87/54 (65) 98.4 Total Intake and Output 08/04/25 08/04/25 08/05/25 15:00 23:00 07:00 Intake Total 40 ml Output Total 1000 ml Balance -1000 ml 40 ml medications Current Medications Medications Dose Ordered Sig/Luan Route Start Time Stop Time Status Last Admin Dose Admin Norepinephrine Bitartrate 250 ml @ 3.75 mls/hr Q24H IV 08/04/25 15:30 08/05/25 10:14 18.75 MLS/HR Aspirin 81 mg DAILY PO 08/05/25 10:00 08/05/25 10:13 81 MG Atorvastatin Calcium 40 mg HS PO 08/04/25 22:00 08/04/25 22:44 40 MG Acetaminophen 650 mg Q6HP PRN PO 08/04/25 15:30 08/04/25 22:44 650 MG Ondansetron HCl 4 mg Q4HP PRN IV 08/04/25 15:30 Nitroglycerin 0.4 mg Q5MINP PRN SL 08/04/25 15:30 Morphine Sulfate 2 mg Q30M PRN IV 08/04/25 15:30 Pantoprazole Sodium 40 mg DAILY IV 08/04/25 16:15 08/05/25 10:13 40 MG Dopamine HCl/ Dextrose 250 ml @ 7.481 mls/ hr Q24H IV 08/05/25 06:15 08/05/25 06:27 7.481 MLS/HR Examination: GENERAL:Abnormal, NECK:Normal, LUNGS:Normal, LUNGS:Abnormal, CVS:Abnormal, ABDOMEN:Abnormal laboratory and microbiology Laboratory Tests 08/05/25 02:35 Test 08/05/25 02:35 Range/Units Serum Glucose 105 74-106 mg/dL Microbiology Date/Time Source Procedure Growth Status 08/04/25 20:03 Nose MRSA Screen - Final Complete Problem List/Assessment/Plan Problem List/Assessment/Plan cardiogenic shock myocarditis hypotension LV dysfunction incarcerated added dopamine, on 2 pressors very low VBG, stable lactate recommend last night to transfer to higher level of care for shock eval , possible need for advanced therapies if pt doesnt do well consider stress dosed steroids awaiting a hospitalist to see pt pulm consult renal consult cont diuretics dc heparin 90 mins critical care time spent Plan discussed with: Patient My Orders My Orders Orders - ONELIA SAMSON MD Procedure Category Date Status Time Echo 2d Mode Cardiac US 08/04/25 Resulted DOP 15:03 Cl Left Heart Cath CL 08/04/25 Taken 15:21 Post Cath Vital Signs TONNY 08/04/25 In Process Q 15min 17:03 Post Cath Activity TONNY 08/04/25 In Process Protocol 17:03 Venous Blood Gas RT 08/05/25 Logged 06:05 Communication Order ORDERS 08/05/25 Transmitted 06:05 Dopamine 1600mcg/Ml PHA 08/05/25 In Process D5W 06:15 *Consult CONS 08/05/25 Transmitted 13:34 *Dr. [facility] CONS 08/05/25 Transmitted -[place] 13:34 Date of Service: Aug 05, 2025 Billing Provider: ONELIA SAMSON MD Common Visit Codes: NOT BILLABLE ONELIA SAMSON MD Aug 05, 2025 14:00
[2025-08-05] MEDS: SODIUM CHLORIDE 0.9% 1,000 ML IV SCH (14:45)
--- NOTE | 2025-08-05 14:47 | DVHINCON2 ---
Date of service: Aug 05, [address] Irvin Reason for Consultation Acute kidney injury History of Present Illness 39-year-old incarcerated male no previous medical history report reports that he was playing football and running in the y[place] when he developed chest pain and shortness of breath he reports overnight symptoms worsened he was brought to the hospital for evaluation for this. 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 He was diagnosed with myocarditis and transferred to the ICU on two pressors due to persistent hypotension Past Medical History none Past Surgical History none Allergies: Coded Allergies: NO KNOWN ALLERGIES (Unverified , 08/04/25) Current Medications Current Medications Medications (Trade) Dose Ordered Sig/Luan Route PRN Reason Start Time Stop Time Status Last Admin Norepinephrine Bitartrate 250 ml @ 3.75 mls/hr Q24H IV 08/04/25 15:30 08/05/25 10:14 Aspirin 81 mg DAILY PO 08/05/25 10:00 08/05/25 10:13 Atorvastatin Calcium (Lipitor) 40 mg HS PO 08/04/25 22:00 08/04/25 22:44 Morphine Sulfate 2 mg Q30MP PRN IV FOR CHEST PAIN 08/04/25 15:30 08/04/25 15:54 DC Acetaminophen (Tylenol Tablet) 650 mg Q6HP PRN PO MILD PAIN (1-3 PAIN SCALE) 08/04/25 15:30 08/04/25 22:44 Nitroglycerin (Ntrostat Sublingual) 0.4 mg Q5MINP PRN SL FOR CHEST PAIN 08/04/25 15:30 08/04/25 15:54 DC Ondansetron HCl (Zofran) 4 mg Q4HP PRN IV NAUSEA / VOMITING 08/04/25 15:30 Nitroglycerin (Ntrostat Sublingual) 0.4 mg Q5MINP PRN SL FOR CHEST PAIN 08/04/25 15:30 Morphine Sulfate 2 mg Q30M PRN IV FOR CHEST PAIN 08/04/25 15:30 Heparin Sodium/ Dextrose 250 ml @ 10 mls/hr Q24H IV 08/04/25 15:45 08/05/25 06:09 DC 08/04/25 23:50 Pantoprazole Sodium (Protonix) 40 mg DAILY IV 08/04/25 16:15 08/05/25 10:13 Dopamine HCl/ Dextrose 250 ml @ 7.481 mls/ hr Q24H IV 08/05/25 06:15 08/05/25 06:27 Furosemide (Lasix Injection) 40 mg BIDD IV 08/05/25 18:00 UNV Sodium Chloride 1,000 ml @ 60 mls/hr [id number] IV 08/05/25 14:45 UNV Review of Systems Chest pain H&P Exam Vital Signs/I&O Vital Sign Date Time Temp Pulse Resp B/P (MAP) Pulse Ox O2 Delivery O2 Flow Rate FiO2 08/05/25 14:45 110/71 08/05/25 12:00 20 97 Room Air* 0 21 08/05/25 12:00 78 08/05/25 12:00 98.4 98.4 Intake and Output 08/04/25 08/05/25 19:00 07:00 Intake Total 40 ml Output Total 1000 ml Balance -960 ml IV Total 40 ml Output Urine Total 1000 ml Physical Exam Young well-nourished appearing male nonacute distress right IJ central line abdomen is soft no pitting edema Labs/Diagnostic Data Labs/Diagnostic Data Laboratory Tests Test 08/05/25 08:28 08/05/25 06:38 08/05/25 02:35 08/04/25 22:40 Range/Units Lactic Acid Level 1.8 0.4-2.0 mmol/L Blood Gas Specimen Type Venous Blood Gas Sample Site Vbg - n/a Blood Gas Patient Temperature 37.0 Arterial Blood Date Drawn [id number] [place] Test N/a Venous Blood pH 7.379 7.320-7.430 Venous Blood pCO2 at Patient Temp 37.5 L 38.0-54.0 mmHg Venous Blood pO2 at Patient Temp < 36.5 23.0-48.0 mmHg Venous Blood HCO3 21.6 L 22.0-29.0 mmol/L Venous Blood Base Excess -3.0 L -2.0-3.0 mmol/L Blood Gas Modality Room air FiO2 % 21.0 White Blood Count 4.6 4.4-10.8 10^3/uL Red Blood Count 4.25 L 4.5-5.90 10^6/uL Hemoglobin 11.9 L 13.5-17.5 g/dL Hematocrit 35.4 L 41.0-53.0 % Mean Corpuscular Volume 83.2 80.0-100.0 fL Mean Corpuscular Hemoglobin 28.0 28.0-32.0 pg Mean Corpuscular Hemoglobin Concent 33.6 32.0-36.0 g/dL Red Cell Distribution Width 13.6 11.8-14.3 % Platelet Count 204 140-450 10^3/uL Mean Platelet Volume 8.6 6.9-10.8 fL Neutrophils (%) (Auto) 54.6 37.0-80.0 % Lymphocytes (%) (Auto) 31.1 10.0-50.0 % Monocytes (%) (Auto) 13.6 H 0.0-12.0 % Eosinophils (%) (Auto) 0.1 0.0-7.0 % Basophils (%) (Auto) 0.6 0.0-2.0 % Neutrophils # (Auto) 2.5 1.6-8.6 10 ^3/uL Lymphocytes # (Auto) 1.4 0.4-5.4 10 ^3/uL Monocytes # (Auto) 0.6 0-1.3 10 ^3/uL Eosinophils # (Auto) 0 0-0.8 10 ^3/uL Basophils # (Auto) 0 0-0.2 10 ^3/uL Nucleated Red Blood Cells 0.1 % Sodium Level 142 136-145 mmol/L Potassium Level 4.2 3.5-5.1 mmol/L Chloride Level 109 H 98-107 mmol/L Carbon Dioxide Level 24 20-31 mmol/L Anion Gap 9 5-15 Blood Urea Nitrogen 18 9-23 mg/dL Creatinine 1.19 0.700-1.30 mg/dL Glomerular Filtration Rate Calc 81 >90 mL/min BUN/Creatinine Ratio 15.1 10.0-20.0 Serum Glucose 105 74-106 mg/dL Calcium Level 8.6 L 8.7-10.4 mg/dL Magnesium Level 1.9 1.6-2.6 mg/dL Troponin I High Sensitivity 74933 *H </=54 ng/L Triglycerides Level 67 < 150 mg/dL Cholesterol Level 118 < 200 mg/dL LDL Cholesterol 75 < 100 mg/dL HDL Cholesterol 32 L 40-59 mg/dL Prothrombin Time 11.9 H 9.3-11.8 sec Prothrombin Time INR 1.14 0.9-1.15 Activated Partial Thromboplast Time 30.6 24.5-34.5 SEC Test 08/04/25 19:59 08/04/25 17:51 08/04/25 14:55 08/04/25 14:45 Range/Units Urine Color Colorless Yellow Urine Clarity Clear Clear Urine pH 5.5 5.0-9.0 Urine Specific [place] 1.014 1.001-1.035 Urine Protein Negative Negative Urine Ketones Negative Negative Urine Blood Trace H Negative /uL Urine Nitrite Negative Negative Urine Bilirubin Negative Negative Urine Urobilinogen Normal Negative mg/dL Urine Leukocyte Esterase Negative Negative /uL Urine RBC 3 0 - 3 /hpf Urine Microscopic WBC < 1 0-3 /HPF Urine Squamous Epithelial Cells None seen <5 /hpf Urine Bacteria None seen None Seen /hpf Urine Hyaline Casts Few 0 - 2 /lpf Urine Sperm Present None Seen /hpf Urine Glucose Normal Normal mg/dL Urine Opiates Screen Neg NEGATIVE Urine Fentanyl Screen Neg NEGATIVE Urine Barbiturates Screen Neg NEGATIVE Urine Phencyclidine Screen Neg NEGATIVE Urine Amphetamines Screen Neg NEGATIVE Urine Benzodiazepines Screen Neg NEGATIVE Urine Cocaine Screen Neg NEGATIVE Urine Cannabinoids Screen Neg NEGATIVE Lactic Acid Level 2.0 0.4-2.0 mmol/L SARS-CoV-2 Antigen (Rapid) Negative NEGATIVE Influenza Type A Antigen Negative Negative Influenza Type B Antigen Negative Negative Test 08/04/25 14:11 Range/Units White Blood Count 4.3 L 4.4-10.8 10^3/uL Red Blood Count 4.35 L 4.5-5.90 10^6/uL Hemoglobin 12.1 L 13.5-17.5 g/dL Hematocrit 36.9 L 41.0-53.0 % Mean Corpuscular Volume 84.7 80.0-100.0 fL Mean Corpuscular Hemoglobin 27.9 L 28.0-32.0 pg Mean Corpuscular Hemoglobin Concent 32.9 32.0-36.0 g/dL Red Cell Distribution Width 13.8 11.8-14.3 % Platelet Count 191 140-450 10^3/uL Mean Platelet Volume 7.8 6.9-10.8 fL Neutrophils (%) (Auto) 72.2 37.0-80.0 % Lymphocytes (%) (Auto) 17.7 10.0-50.0 % Monocytes (%) (Auto) 9.7 0.0-12.0 % Eosinophils (%) (Auto) 0.2 0.0-7.0 % Basophils (%) (Auto) 0.2 0.0-2.0 % Neutrophils # (Auto) 3.1 1.6-8.6 10 ^3/uL Lymphocytes # (Auto) 0.8 0.4-5.4 10 ^3/uL Monocytes # (Auto) 0.4 0-1.3 10 ^3/uL Eosinophils # (Auto) 0 0-0.8 10 ^3/uL Basophils # (Auto) 0 0-0.2 10 ^3/uL Nucleated Red Blood Cells 0.1 % Prothrombin Time 11.7 9.3-11.8 sec Prothrombin Time INR 1.12 0.9-1.15 Activated Partial Thromboplast Time 30.7 24.5-34.5 SEC Sodium Level 142 136-145 mmol/L Potassium Level 4.3 3.5-5.1 mmol/L Chloride Level 109 H 98-107 mmol/L Carbon Dioxide Level 23 20-31 mmol/L Anion Gap 10 5-15 Blood Urea Nitrogen 22 9-23 mg/dL Creatinine 1.08 0.700-1.30 mg/dL Glomerular Filtration Rate Calc 91 >90 mL/min BUN/Creatinine Ratio 20.4 H 10.0-20.0 Serum Glucose 115 H 74-106 mg/dL Hemoglobin A1c 5.4 <5.7 % A1C Calcium Level 8.6 L 8.7-10.4 mg/dL Total Bilirubin 0.5 0.2-1.0 mg/dL Aspartate Amino Transferase (AST) 107 H 13-40 U/L Alanine Aminotransferase (ALT) 26 7-40 U/L Alkaline Phosphatase 83 46-116 U/L Lactate Dehydrogenase 259 H 120-246 U/L Troponin I High Sensitivity 23610 *H </=54 ng/L B-Type Natriuretic Peptide 123.49 0-100 pg/mL Total Protein 6.1 5.7-8.2 g/dL Albumin 3.6 3.2-4.8 g/dL Thyroid Stimulating Hormone (TSH) 1.69 0.55-4.78 uIU/mL Free Thyroxine (T4) Calculated 0.86 L 0.89-1.76 ng/dL Microbiology Date/Time Source Procedure Growth Status 11/27/25 20:03 Nose MRSA Screen - Final Complete Assessment Acute kidney injury hemodynamically mediated in the setting of cardiogenic shock Acute myocarditis Cardiogenic shock on two pressors CPK is within normal limits Status post heart catheterization monitor urinary output Start gentle IV fluid hydration and monitoring urinary output Lasix p.r.n. Pressors to maintain mean arterial pressure greater than 65 Cardiology currently on the case Pulmonology consult as needed Plan discussed with: Patient CINDY COLE MD Aug 05, 2025 14:47
[2025-08-05] MEDS: FUROSEMIDE 40 MG/4 ML VIAL IV SCH (17:00)
[2025-08-06] VITALS (95 sets, daily range): BP systolic 67–110; BP diastolic 43–72; PULSE 70–104; RESP 12–28; TEMP 98.4–99.9; O2SAT 93–100
[2025-08-06] MEDS: ONDANSETRON HCL 4 MG/2 ML VIAL IV PRN (02:12)
[2025-08-06 03:22] LABS: Hematocrit 38.1 % (41.0-53.0); Hemoglobin 12.7 g/dL (13.5-17.5); Mean Corpuscular Hemoglobin 27.7 pg (28.0-32.0); Mean Corpuscular Volume 83.3 fL (80.0-100.0); Nucleated Red Blood Cells % 0.1 %
[2025-08-06 03:35] LABS: Anion Gap 11 (5-15); Carbon Dioxide 26 mmol/L (20-31); Chloride 101 mmol/L (98-107); Potassium 4.6 mmol/L (3.5-5.1); Sodium 138 mmol/L (136-145)
[2025-08-06 03:36] LABS: Calcium 9.4 mg/dL (8.7-10.4)
[2025-08-06 03:41] LABS: BUN/Creatinine Ratio 17.2 (10.0-20.0); Blood Urea Nitrogen 20 mg/dL (9-23)
[2025-08-06 04:05] LABS: Lactic Acid w/Reflex 2.8 mmol/L (0.4-2.0)
[2025-08-06 04:06] LABS: Glucose 171 mg/dL (74-106)
[2025-08-06] MEDS: SODIUM CHLORIDE 0.9% 500 ML IV ONE (04:43)
--- NOTE | 2025-08-06 10:06 | DVHPN2 ---
Progress Note Date Seen: Aug 06, 2025 Medical Necessity Reason Pt with a Central, PICC or Fol: Yes Subjective Patient reports: Feels better Other Systems: good uop mild lactate elevation vbg ordered, Objective vital signs Vital Sign Date Time Temp Pulse Resp B/P (MAP) Pulse Ox O2 Delivery O2 Flow Rate FiO2 08/06/25 08:15 77 21 88/56 (67) 97 08/06/25 08:00 Room Air* 0 21 08/06/25 08:00 98.5 98.5 Total Intake and Output 08/05/25 08/05/25 08/06/25 15:00 23:00 07:00 Intake Total 1059.848 ml 699.848 ml 559.848 ml Output Total 1100 ml 1700 ml Balance -40.152 ml -1000.152 ml 559.848 ml medications Current Medications Medications Dose Ordered Sig/Luan Route Start Time Stop Time Status Last Admin Dose Admin Norepinephrine Bitartrate 250 ml @ 3.75 mls/hr Q24H IV 08/04/25 15:30 08/06/25 04:43 11.25 MLS/HR Aspirin 81 mg DAILY PO 08/05/25 10:00 08/05/25 10:13 81 MG Atorvastatin Calcium 40 mg HS PO 08/04/25 22:00 08/05/25 21:27 40 MG Acetaminophen 650 mg Q6HP PRN PO 08/04/25 15:30 08/04/25 22:44 650 MG Ondansetron HCl 4 mg Q4HP PRN IV 08/04/25 15:30 08/06/25 02:12 4 MG Nitroglycerin 0.4 mg Q5MINP PRN SL 08/04/25 15:30 Morphine Sulfate 2 mg Q30M PRN IV 08/04/25 15:30 Pantoprazole Sodium 40 mg DAILY IV 08/04/25 16:15 08/05/25 10:13 40 MG Dopamine HCl/ Dextrose 250 ml @ 7.481 mls/ hr Q24H IV 08/05/25 06:15 08/06/25 05:35 7.481 MLS/HR Furosemide 40 mg BIDD IV 08/05/25 18:00 08/06/25 05:35 40 MG Sodium Chloride 1,000 ml @ 60 mls/hr [id number] IV 08/05/25 14:45 08/05/25 16:57 60 MLS/HR Examination: GENERAL:Abnormal, HEENT:Abnormal, LUNGS:Abnormal, CVS:Abnormal, ABDOMEN:Abnormal laboratory and microbiology Laboratory Tests 08/06/25 02:45 Test 08/06/25 02:45 Range/Units Serum Glucose 171 H 74-106 mg/dL Microbiology Date/Time Source Procedure Growth Status 08/04/25 20:03 Nose MRSA Screen - Final Complete Problem List/Assessment/Plan Problem List/Assessment/Plan cardiogenic shock myocarditis hypotension LV dysfunction incarcerated added dopamine, on 2 pressors very low VBG, stable lactate recommend last night to transfer to higher level of care for shock eval , possible need for advanced therapies if pt doesnt do well consider stress dosed steroids awaiting a hospitalist to see pt pulm consult renal consult cont diuretics dc heparin recommend tx to higher level of care as pt is pressor dependent currently, at risk for end organ hypoperfusion awaiting hospitalist and pulm eval spoke to mother yesterday 90 mins critical care time spent Plan discussed with: Patient, Other (rn) My Orders My Orders Orders - ONELIA SAMSON MD Procedure Category Date Status Time *Consult CONS 08/05/25 Transmitted 13:34 *Dr. [facility] CONS 08/05/25 Transmitted -[place] 13:34 Venous Blood Gas RT 08/06/25 Logged 04:00 Furosemide Injection PHA 08/05/25 In Process (Lasix Injection) 18:00 Communication Order ORDERS 08/06/25 Transmitted 09:26 Date of Service: Aug 06, 2025 Billing Provider: ONELIA SAMSON MD Common Visit Codes: NOT BILLABLE ONELIA SAMSON MD Aug 06, 2025 10:06
--- NOTE | 2025-08-06 11:04 | DVHPN2 ---
Progress Note Date Seen: Aug 06, 2025 Medical Necessity Reason Pt with a Central, PICC or Fol: Yes The following are medically ne: Central Line Subjective Patient reports: Feels better Changes from previous H/P or p: No Changes Objective vital signs Vital Sign Date Time Temp Pulse Resp B/P (MAP) Pulse Ox O2 Delivery O2 Flow Rate FiO2 08/06/25 10:30 76 20 95/60 (72) 94 08/06/25 10:00 Room Air* 0 21 08/06/25 08:00 98.5 98.5 Total Intake and Output 08/05/25 08/05/25 08/06/25 15:00 23:00 07:00 Intake Total 1059.848 ml 699.848 ml 559.848 ml Output Total 1100 ml 1700 ml Balance -40.152 ml -1000.152 ml 559.848 ml medications Current Medications Medications Dose Ordered Sig/Luan Route Start Time Stop Time Status Last Admin Dose Admin Norepinephrine Bitartrate 250 ml @ 3.75 mls/hr Q24H IV 08/04/25 15:30 08/06/25 04:43 11.25 MLS/HR Aspirin 81 mg DAILY PO 08/05/25 10:00 08/06/25 10:11 81 MG Atorvastatin Calcium 40 mg HS PO 08/04/25 22:00 08/05/25 21:27 40 MG Acetaminophen 650 mg Q6HP PRN PO 08/04/25 15:30 08/04/25 22:44 650 MG Ondansetron HCl 4 mg Q4HP PRN IV 08/04/25 15:30 08/06/25 02:12 4 MG Nitroglycerin 0.4 mg Q5MINP PRN SL 08/04/25 15:30 Morphine Sulfate 2 mg Q30M PRN IV 08/04/25 15:30 Pantoprazole Sodium 40 mg DAILY IV 08/04/25 16:15 08/06/25 10:11 40 MG Dopamine HCl/ Dextrose 250 ml @ 7.481 mls/ hr Q24H IV 08/05/25 06:15 08/06/25 05:35 7.481 MLS/HR Furosemide 40 mg BIDD IV 08/05/25 18:00 08/06/25 05:35 40 MG Sodium Chloride 1,000 ml @ 60 mls/hr [id number] IV 08/05/25 14:45 08/05/25 16:57 60 MLS/HR Examination: GENERAL:Normal, CVS:Abnormal, ABDOMEN:Normal, SKIN:Normal laboratory and microbiology Laboratory Tests 08/06/25 02:45 Test 08/06/25 02:45 Range/Units Serum Glucose 171 H 74-106 mg/dL Microbiology Date/Time Source Procedure Growth Status 08/04/25 20:03 Nose MRSA Screen - Final Complete Problem List/Assessment/Plan Problem List/Assessment/Plan Acute kidney injury hemodynamically mediated in the setting of cardiogenic shock Acute myocarditis Cardiogenic shock on pressors renal function stable CPK is within normal limits Status post heart catheterization monitor urinary output Start gentle IV fluid hydration and monitoring urinary output continue I/O Lasix BID currently good uop Pressors to maintain mean arterial pressure greater than 65 - dopamine Cardiology currently on the case pending HLOC per cardiac due to LV dysfunction Plan discussed with: Patient My Orders My Orders Orders - CINDY COLE MD Procedure Category Date Status Time Sodium Chloride 0.9% PHA 08/05/25 In Process 14:45 CINDY COLE MD Aug 06, 2025 11:04
--- NOTE | 2025-08-06 12:09 | DVHINCON2 ---
Date of service: Aug 05, [address] guzman Reason for Consultation dyspnea and crtical care management History of Present Illness HPI pt is a 39 yo male, no underlying medical problems, presented with chest pain, and low blood pressure, shortness of breath, the onset of which co-incided with exertion (sports activities). Pt brought n to ER where he's hypotensive requiring pressors. troponins markedly elevated, CXR shows congestion. Further work up per cardiology: echo and LHC: EF 40%, clean coronaries, global hypokinesia suggestive of myocarditis. pt admitted to ICU for pressors with cardiogenic shock Past Medical History Cardiac: No pertinent Hx Pulmonary: No pertinent Hx Central Nervous System: No pertinent Hx GI: No pertinent Hx Hemotology/Oncology: No pertinent Hx Hepatobiliary: No pertinent Hx Psychiatric: No pertinent Hx Musculoskeletal: No pertinent Hx Rheumotologic: No pertinent Hx Infectious Disease: No peritnent Hx ENT: No pertinent Hx Renal/: No pertinent Hx Endocrine: No pertinent Hx Dermatology: No pertinent Hx Past Surgical History: No pertinent Hx Review of Systems Constitutional: Malaise, Weakness Ears, Nose, & Throat: No symptom reported Eyes: No symptom reported Pulmonary/Respiratory: Dyspnea Cardiovascular: Chest Pain Gastrointestinal: Nausea, Vomiting Genitourinary: No symptom reported Musculoskeletal: No symptom reported Skin: No symptom reported Psychiatric: No symptom reported Endocrine: No symptom reported Hemotologic/Lymphatic: No symptom reported H&P Exam Vital Signs Vital Signs Date Time Temp Pulse Resp B/P (MAP) Pulse Ox O2 Delivery O2 Flow Rate FiO2 08/06/25 10:30 76 20 95/60 (72) 94 08/06/25 10:00 Room Air* 0 21 08/06/25 08:00 98.5 98.5 General Appeara: Well developed, Well nourished, Normal Appearance Head Exam: Normal inspection Neck Exam: Normal inspection, Non-tender, Normal alignment Eye Exam: bilateral eye Normal inspection, bilateral eye PERRL, bilateral eye EOMI Ear Exam: bilateral ear Auricle normal, bilateral ear Canal normal Nasal Exam: Normal inspection Mouth: Normal Inspection Pulmonary/Respiratory: Normal inspection, Normal breath sounds, Chest non- tender Cardiovascular/Chest: Normal inspection Peripheral Pulses: 4+ carotid (R), 4+ carotid (L) Abdominal Exam: Normal bowel sounds, Soft Labs/Xrays Labs Test 08/06/25 08:47 08/06/25 02:45 08/05/25 06:38 08/05/25 02:35 Range/Units Lactic Acid Level 2.2 *H 0.4-2.0 mmol/L White Blood Count 3.2 #L 4.4-10.8 10^3/uL Red Blood Count 4.58 4.5-5.90 10^6/uL Hemoglobin 12.7 L 13.5-17.5 g/dL Hematocrit 38.1 L 41.0-53.0 % Mean Corpuscular Volume 83.3 80.0-100.0 fL Mean Corpuscular Hemoglobin 27.7 L 28.0-32.0 pg Mean Corpuscular Hemoglobin Concent 33.3 32.0-36.0 g/dL Red Cell Distribution Width 13.7 11.8-14.3 % Platelet Count 184 140-450 10^3/uL Mean Platelet Volume 8.7 6.9-10.8 fL Neutrophils (%) (Auto) 65.1 37.0-80.0 % Lymphocytes (%) (Auto) 28.7 10.0-50.0 % Monocytes (%) (Auto) 6.1 0.0-12.0 % Eosinophils (%) (Auto) 0.0 0.0-7.0 % Basophils (%) (Auto) 0.1 0.0-2.0 % Neutrophils # (Auto) 2.1 1.6-8.6 10 ^3/uL Lymphocytes # (Auto) 0.9 0.4-5.4 10 ^3/uL Monocytes # (Auto) 0.2 0-1.3 10 ^3/uL Eosinophils # (Auto) 0 0-0.8 10 ^3/uL Basophils # (Auto) 0 0-0.2 10 ^3/uL Nucleated Red Blood Cells 0.1 % Sodium Level 138 136-145 mmol/L Potassium Level 4.6 3.5-5.1 mmol/L Chloride Level 101 98-107 mmol/L Carbon Dioxide Level 26 20-31 mmol/L Anion Gap 11 5-15 Blood Urea Nitrogen 20 9-23 mg/dL Creatinine 1.16 0.700-1.30 mg/dL Glomerular Filtration Rate Calc 83 >90 mL/min BUN/Creatinine Ratio 17.2 10.0-20.0 Serum Glucose 171 H 74-106 mg/dL Calcium Level 9.4 8.7-10.4 mg/dL Blood Gas Specimen Type Venous Blood Gas Sample Site Vbg - n/a Blood Gas Patient Temperature 37.0 Arterial Blood Date Drawn [id number] [place] Test N/a Venous Blood pH 7.379 7.320-7.430 Venous Blood pCO2 at Patient Temp 37.5 L 38.0-54.0 mmHg Venous Blood pO2 at Patient Temp < 36.5 23.0-48.0 mmHg Venous Blood HCO3 21.6 L 22.0-29.0 mmol/L Venous Blood Base Excess -3.0 L -2.0-3.0 mmol/L Blood Gas Modality Room air FiO2 % 21.0 Magnesium Level 1.9 1.6-2.6 mg/dL Troponin I High Sensitivity 75051 *H </=54 ng/L Triglycerides Level 67 < 150 mg/dL Cholesterol Level 118 < 200 mg/dL LDL Cholesterol 75 < 100 mg/dL HDL Cholesterol 32 L 40-59 mg/dL Test 08/04/25 22:40 08/04/25 19:59 08/04/25 14:55 08/04/25 14:45 Range/Units Prothrombin Time 11.9 H 9.3-11.8 sec Prothrombin Time INR 1.14 0.9-1.15 Activated Partial Thromboplast Time 30.6 24.5-34.5 SEC Urine Color Colorless Yellow Urine Clarity Clear Clear Urine pH 5.5 5.0-9.0 Urine Specific [place] 1.014 1.001-1.035 Urine Protein Negative Negative Urine Ketones Negative Negative Urine Blood Trace H Negative /uL Urine Nitrite Negative Negative Urine Bilirubin Negative Negative Urine Urobilinogen Normal Negative mg/dL Urine Leukocyte Esterase Negative Negative /uL Urine RBC 3 0 - 3 /hpf Urine Microscopic WBC < 1 0-3 /HPF Urine Squamous Epithelial Cells None seen <5 /hpf Urine Bacteria None seen None Seen /hpf Urine Hyaline Casts Few 0 - 2 /lpf Urine Sperm Present None Seen /hpf Urine Glucose Normal Normal mg/dL Urine Opiates Screen Neg NEGATIVE Urine Fentanyl Screen Neg NEGATIVE Urine Barbiturates Screen Neg NEGATIVE Urine Phencyclidine Screen Neg NEGATIVE Urine Amphetamines Screen Neg NEGATIVE Urine Benzodiazepines Screen Neg NEGATIVE Urine Cocaine Screen Neg NEGATIVE Urine Cannabinoids Screen Neg NEGATIVE SARS-CoV-2 Antigen (Rapid) Negative NEGATIVE Influenza Type A Antigen Negative Negative Influenza Type B Antigen Negative Negative Test 08/04/25 14:11 Range/Units Hemoglobin A1c 5.4 <5.7 % A1C Total Bilirubin 0.5 0.2-1.0 mg/dL Aspartate Amino Transferase (AST) 107 H 13-40 U/L Alanine Aminotransferase (ALT) 26 7-40 U/L Alkaline Phosphatase 83 46-116 U/L Lactate Dehydrogenase 259 H 120-246 U/L B-Type Natriuretic Peptide 123.49 0-100 pg/mL Total Protein 6.1 5.7-8.2 g/dL Albumin 3.6 3.2-4.8 g/dL Thyroid Stimulating Hormone (TSH) 1.69 0.55-4.78 uIU/mL Free Thyroxine (T4) Calculated 0.86 L 0.89-1.76 ng/dL Microbiology Date/Time Source Procedure Growth Status 08/04/25 20:03 Nose MRSA Screen - Final Complete Assessment/Plan Plan myocarditis atelectases elevated troponins cardiogenic shock pt seen and examined on ICU labs and imaging studies reviewed levophed and dopamine titrate to MAP above 65 mm Hg suppl 02 as needed sats above 92% incent sp diurese monitor lytes replace K and Mag otherwise management deferred to cardiology dvt proph crit care time 35 min Plan discussed with: Patient PASQUALE CARMONA MD Aug 06, 2025 12:09
--- NOTE | 2025-08-06 12:10 | DVHPN2 ---
Progress Note - Dictate Date Seen: Aug 06, 2025 Medical Necessity Reason Pt with a Central, PICC or Fol: Yes The following are medically ne: Central Line vital signs Vital Sign Date Time Temp Pulse Resp B/P (MAP) Pulse Ox O2 Delivery O2 Flow Rate FiO2 08/06/25 10:30 76 20 95/60 (72) 94 08/06/25 10:00 Room Air* 0 21 08/06/25 08:00 98.5 98.5 Total Intake and Output 08/05/25 08/05/25 08/06/25 14:59 22:59 06:59 Intake Total 1052.367 ml 699.848 ml 559.848 ml Output Total 1100 ml 1700 ml Balance -47.633 ml -1000.152 ml 559.848 ml medications Current Medications Medications Dose Ordered Sig/Luan Route Start Time Stop Time Status Last Admin Dose Admin Norepinephrine Bitartrate 250 ml @ 3.75 mls/hr Q24H IV 08/04/25 15:30 08/06/25 04:43 11.25 MLS/HR Aspirin 81 mg DAILY PO 08/05/25 10:00 08/06/25 10:11 81 MG Atorvastatin Calcium 40 mg HS PO 08/04/25 22:00 08/05/25 21:27 40 MG Acetaminophen 650 mg Q6HP PRN PO 08/04/25 15:30 08/04/25 22:44 650 MG Ondansetron HCl 4 mg Q4HP PRN IV 08/04/25 15:30 08/06/25 02:12 4 MG Nitroglycerin 0.4 mg Q5MINP PRN SL 08/04/25 15:30 Morphine Sulfate 2 mg Q30M PRN IV 08/04/25 15:30 Pantoprazole Sodium 40 mg DAILY IV 08/04/25 16:15 08/06/25 10:11 40 MG Dopamine HCl/ Dextrose 250 ml @ 7.481 mls/ hr Q24H IV 08/05/25 06:15 08/06/25 05:35 7.481 MLS/HR Furosemide 40 mg BIDD IV 08/05/25 18:00 08/06/25 05:35 40 MG Sodium Chloride 1,000 ml @ 100 mls/hr Q10H IV 08/06/25 12:00 UNV laboratory and microbiology Laboratory Tests 08/06/25 02:45 Test 08/06/25 02:45 Range/Units Serum Glucose 171 H 74-106 mg/dL Assessment/Plan myocarditis atelectases elevated troponins cardiogenic shock pt seen and examined on ICU events none on room air vs stable requires 2 pressors labs and imaging studies reviewed cont levophed and dopamine titrate to MAP above 65 mm Hg suppl 02 as needed sats above 92% incent sp diurese monitor lytes replace K and Mag otherwise management deferred to cardiology dvt proph crit care time 35 min Plan discussed with: Patient PASQUALE CARMONA MD Aug 06, 2025 12:10
[2025-08-06] MEDS: SODIUM CHLORIDE 0.9% 1,000 ML IV SCH (13:53)
[2025-08-06] MEDS: NITROGLYCERIN 0.4 MG SL TAB SL PRN (23:41)
[2025-08-07] VITALS (93 sets, daily range): BP systolic 86–117; BP diastolic 40–76; PULSE 64–113; RESP 11–30; TEMP 98.4–100.9; O2SAT 93–100
[2025-08-07 03:35] LABS: Hematocrit 37.3 % (41.0-53.0); Hemoglobin 12.2 g/dL (13.5-17.5); Mean Corpuscular Hemoglobin 27.1 pg (28.0-32.0); Mean Corpuscular Volume 83.2 fL (80.0-100.0); Nucleated Red Blood Cells % 0.0 %
[2025-08-07 03:42] LABS: Chloride 102 mmol/L (98-107); Potassium 4.2 mmol/L (3.5-5.1); Sodium 139 mmol/L (136-145)
[2025-08-07 03:43] LABS: Anion Gap 9 (5-15); Carbon Dioxide 28 mmol/L (20-31)
[2025-08-07 03:45] LABS: Calcium 8.7 mg/dL (8.7-10.4)
[2025-08-07 03:48] LABS: BUN/Creatinine Ratio 22.2 (10.0-20.0); Magnesium 1.7 mg/dL (1.6-2.6)
[2025-08-07 03:49] LABS: Blood Urea Nitrogen 24 mg/dL (9-23); Glucose 114 mg/dL (74-106)
[2025-08-07] MEDS: ACETAMINOPHEN 325 MG TAB PO PRN (05:40)
--- NOTE | 2025-08-07 09:38 | DVHPN2 ---
Progress Note Date Seen: Aug 07, 2025 Medical Necessity Reason Pt with a Central, PICC or Fol: Yes The following are medically ne: Central Line Subjective Changes from previous H/P or p: No Changes Objective vital signs Vital Sign Date Time Temp Pulse Resp B/P (MAP) Pulse Ox O2 Delivery O2 Flow Rate FiO2 08/07/25 06:46 99.0 08/07/25 06:45 92 24 100/61 (74) 96 08/07/25 05:55 Nasal Cannula* 2 28 Total Intake and Output 08/06/25 08/06/25 08/07/25 15:00 23:00 07:00 Intake Total 1339.848 ml 2993.886 ml 1502.367 ml Output Total 1800 ml 1775 ml Balance 1339.848 ml 1193.886 ml -272.633 ml medications Current Medications Medications Dose Ordered Sig/Luan Route Start Time Stop Time Status Last Admin Dose Admin Norepinephrine Bitartrate 250 ml @ 3.75 mls/hr Q24H IV 08/04/25 15:30 08/07/25 05:40 30 MLS/HR Aspirin 81 mg DAILY PO 08/05/25 10:00 08/06/25 10:11 81 MG Atorvastatin Calcium 40 mg HS PO 08/04/25 22:00 08/06/25 20:58 40 MG Ondansetron HCl 4 mg Q4HP PRN IV 08/04/25 15:30 08/06/25 02:12 4 MG Nitroglycerin 0.4 mg Q5MINP PRN SL 08/04/25 15:30 08/06/25 23:48 0.4 MG Morphine Sulfate 2 mg Q30M PRN IV 08/04/25 15:30 Pantoprazole Sodium 40 mg DAILY IV 08/04/25 16:15 08/06/25 10:11 40 MG Dopamine HCl/ Dextrose 250 ml @ 7.481 mls/ hr Q24H IV 08/05/25 06:15 08/06/25 05:35 7.481 MLS/HR Furosemide 40 mg BIDD IV 08/05/25 18:00 08/07/25 05:40 40 MG Sodium Chloride 1,000 ml @ 100 mls/hr Q10H IV 08/06/25 12:00 08/06/25 20:58 100 MLS/HR Acetaminophen 650 mg Q6HP PRN PO 08/07/25 05:15 08/07/25 05:40 650 MG Ceftriaxone Sodium 50 ml @ 100 mls/hr DAILY@09 IV 08/07/25 09:00 Examination: GENERAL:Normal, CVS:Normal, SKIN:Normal laboratory and microbiology Laboratory Tests 08/07/25 03:00 Test 08/07/25 03:00 Range/Units Serum Glucose 114 H 74-106 mg/dL Microbiology Date/Time Source Procedure Growth Status 08/04/25 20:03 Nose MRSA Screen - Final Complete Problem List/Assessment/Plan Problem List/Assessment/Plan Acute kidney injury hemodynamically mediated in the setting of cardiogenic shock Acute myocarditis Cardiogenic shock on pressors renal function stable CPK is within normal limits Status post heart catheterization monitor urinary output IV fluid hydration and monitoring urinary output continue I/O Lasix BID currently good uop Pressors to maintain mean arterial pressure greater than 65 - dopamine Cardiology currently on the case pending HLOC per cardiac due to LV dysfunction per cardiology needs ECMO Plan discussed with: Patient My Orders My Orders Orders - CINDY COLE MD Procedure Category Date Status Time Sodium Chloride 0.9% PHA 08/06/25 In Process 12:00 CINDY COLE MD Aug 07, 2025 09:38
--- NOTE | 2025-08-07 11:24 | DVHPN2 ---
Progress Note Date Seen: Aug 07, 2025 Medical Necessity Reason Pt with a Central, PICC or Fol: Yes The following are medically ne: Central Line Subjective Patient reports: Feels better Other Systems: creat stable Objective vital signs Vital Sign Date Time Temp Pulse Resp B/P (MAP) Pulse Ox O2 Delivery O2 Flow Rate FiO2 08/07/25 06:46 99.0 08/07/25 06:45 92 24 100/61 (74) 96 08/07/25 05:55 Nasal Cannula* 2 28 Total Intake and Output 08/06/25 08/06/25 08/07/25 15:00 23:00 07:00 Intake Total 1339.848 ml 2993.886 ml 1502.367 ml Output Total 1800 ml 1775 ml Balance 1339.848 ml 1193.886 ml -272.633 ml medications Current Medications Medications Dose Ordered Sig/Luan Route Start Time Stop Time Status Last Admin Dose Admin Norepinephrine Bitartrate 250 ml @ 3.75 mls/hr Q24H IV 08/04/25 15:30 08/07/25 05:40 30 MLS/HR Aspirin 81 mg DAILY PO 08/05/25 10:00 08/07/25 10:26 81 MG Atorvastatin Calcium 40 mg HS PO 08/04/25 22:00 08/06/25 20:58 40 MG Ondansetron HCl 4 mg Q4HP PRN IV 08/04/25 15:30 08/06/25 02:12 4 MG Morphine Sulfate 2 mg Q30M PRN IV 08/04/25 15:30 Pantoprazole Sodium 40 mg DAILY IV 08/04/25 16:15 08/07/25 10:26 40 MG Dopamine HCl/ Dextrose 250 ml @ 7.481 mls/ hr Q24H IV 08/05/25 06:15 08/06/25 05:35 7.481 MLS/HR Furosemide 40 mg BIDD IV 08/05/25 18:00 08/07/25 05:40 40 MG Sodium Chloride 1,000 ml @ 100 mls/hr Q10H IV 08/06/25 12:00 08/07/25 10:28 100 MLS/HR Acetaminophen 650 mg Q6HP PRN PO 08/07/25 05:15 08/07/25 05:40 650 MG Ceftriaxone Sodium 50 ml @ 100 mls/hr DAILY@09 IV 08/07/25 09:00 08/07/25 10:25 100 MLS/HR Examination: GENERAL:Abnormal, HEENT:Abnormal, LUNGS:Abnormal, CVS:Abnormal, ABDOMEN:Abnormal laboratory and microbiology Laboratory Tests 08/07/25 03:00 Test 08/07/25 03:00 Range/Units Serum Glucose 114 H 74-106 mg/dL Microbiology Date/Time Source Procedure Growth Status 08/04/25 20:03 Nose MRSA Screen - Final Complete Problem List/Assessment/Plan Problem List/Assessment/Plan cardiogenic shock myocarditis hypotension LV dysfunction incarcerated added dopamine, on 2 pressors very low VBG, stable lactate recommend last night to transfer to higher level of care for shock eval , possible need for advanced therapies if pt doesnt do well consider stress dosed steroids awaiting a hospitalist to see pt pulm consult renal consult cont diuretics dc heparin recommend tx to higher level of care as pt is pressor dependent currently, at risk for end organ hypoperfusion awaiting hospitalist and pulm eval spoke to mother yesterday spent hours yesterday speaking to OSH spoke to [facility]--on calls cards sat night didnt say yes or no to transfer, they will turn him down for tx or vad 2/2 to inmate still pressor dependent [facility] cannot accept pt for possible ecmo -they dont do that. recommend eval at tertiary care center if feasible but may be difficult as he is inmate spoke to pt he is ambulating 90 mins critical care time spent Plan discussed with: Patient My Orders My Orders Orders - ONELIA SAMSON MD Procedure Category Date Status Time Electrocardigram EKG 08/07/25 Logged 00:09 Dietary Evaluation Review Comments: Monitor PO intke and lab values Expected Outcomes/Goals: Follow a Cardiac Diet Date of Service: Aug 07, 2025 Billing Provider: ONELIA SAMSON MD Common Visit Codes: NOT BILLABLE ONELIA SAMSON MD Aug 07, 2025 11:24
--- NOTE | 2025-08-07 12:11 | ECG ---
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
[2025-08-07] MEDS: SPIRONOLACTONE 25 MG TAB PO SCH (13:42)
[2025-08-07] MEDS: methylPREDNISolone SOD SUCC 500 MG in SODIUM CHL 0.9% 100 ML IV ONE (14:12)
--- NOTE | 2025-08-07 14:13 | MEDREC ---
[facility] ASP Intervention Section I [facility] ASP Intervention: Review concha of ABX 48h AIO (PLEASE CONSIDER D/C ANTIBIOTIC IN ABSENCE OF BACTERIAL INFECTION) REBEKAH NGUYEN PHARMACIST Aug 07, 2025 14:13
--- NOTE | 2025-08-07 15:33 | DVHPN2 ---
Progress Note - Dictate Date Seen: Aug 07, 2025 Medical Necessity Reason Pt with a Central, PICC or Fol: Yes The following are medically ne: Central Line vital signs Vital Sign Date Time Temp Pulse Resp B/P (MAP) Pulse Ox O2 Delivery O2 Flow Rate FiO2 08/07/25 15:00 106/59 08/07/25 12:15 26 95 Room Air* 0 21 08/07/25 12:15 78 08/07/25 08:00 99.3 99.3 Total Intake and Output 08/06/25 08/06/25 08/07/25 15:00 23:00 07:00 Intake Total 1339.848 ml 2993.886 ml 1502.367 ml Output Total 1800 ml 1775 ml Balance 1339.848 ml 1193.886 ml -272.633 ml medications Current Medications Medications Dose Ordered Sig/Luan Route Start Time Stop Time Status Last Admin Dose Admin Norepinephrine Bitartrate 250 ml @ 3.75 mls/hr Q24H IV 08/04/25 15:30 08/07/25 15:00 18.75 MLS/HR Aspirin 81 mg DAILY PO 08/05/25 10:00 08/07/25 10:26 81 MG Atorvastatin Calcium 40 mg HS PO 08/04/25 22:00 08/06/25 20:58 40 MG Ondansetron HCl 4 mg Q4HP PRN IV 08/04/25 15:30 08/06/25 02:12 4 MG Morphine Sulfate 2 mg Q30M PRN IV 08/04/25 15:30 Pantoprazole Sodium 40 mg DAILY IV 08/04/25 16:15 08/07/25 10:26 40 MG Dopamine HCl/ Dextrose 250 ml @ 7.481 mls/ hr Q24H IV 08/05/25 06:15 08/07/25 13:41 7.481 MLS/HR Furosemide 40 mg BIDD IV 08/05/25 18:00 08/07/25 05:40 40 MG Acetaminophen 650 mg Q6HP PRN PO 08/07/25 05:15 08/07/25 05:40 650 MG Ceftriaxone Sodium 50 ml @ 100 mls/hr DAILY@09 IV 08/07/25 09:00 08/07/25 10:25 100 MLS/HR Spironolactone 25 mg DAILY PO 08/07/25 11:30 08/07/25 13:42 25 MG laboratory and microbiology Laboratory Tests 08/07/25 03:00 Test 08/07/25 03:00 Range/Units Serum Glucose 114 H 74-106 mg/dL Assessment/Plan myocarditis atelectases elevated troponins cardiogenic shock pt seen and examined on ICU events none on room air remains on 2 pressors for hemodynamic support labs and imaging studies reviewed cont levophed and dopamine titrate to MAP above 65 mm Hg suppl 02 as needed sats above 92% incent sp diurese monitor lytes replace K and Mag otherwise management deferred to cardiology dvt proph crit care time 35 min Dietary Evaluation Review Comments: Monitor PO intke and lab values Expected Outcomes/Goals: Follow a Cardiac Diet Plan discussed with: Patient PASQUALE CARMONA MD Aug 07, 2025 15:33
--- NOTE | 2025-08-07 23:45 | DVHPN2 ---
Reviewed: Care Plan, Labs, Medications, Previous Orders, Radiology Changes from previous H/P or p: No Changes General: Per HPI Cardiovascular: Chest Pain Gastrointestinal: Nausea, Vomiting Objective Vitals Vital Signs Date Time Temp Pulse Resp B/P (MAP) Pulse Ox O2 Delivery O2 Flow Rate FiO2 08/07/25 22:15 75 21 105/64 (78) 98 08/07/25 22:00 Room Air* 0 21 08/07/25 16:00 98.7 98.7 Intake/Output Intake and Output 08/07/25 07:00 Intake Total 5836.101 ml Output Total 3575 ml Balance 2261.101 ml Intake Oral 3390 ml IV Total 1857.101 ml Other 589 ml Output Urine Total 3575 ml # Bowel Movements 1 General Appearance: Alert, Oriented X3 Cardiovascular: Regular rate Neuro: Normal gait, Normal speech Medications Current Medications Medications Dose Ordered Sig/Luan Route Start Time Stop Time Status Last Admin Dose Admin Norepinephrine Bitartrate 250 ml @ 3.75 mls/hr Q24H IV 08/04/25 15:30 08/07/25 15:00 18.75 MLS/HR Aspirin 81 mg DAILY PO 08/05/25 10:00 08/07/25 10:26 81 MG Atorvastatin Calcium 40 mg HS PO 08/04/25 22:00 08/07/25 21:16 40 MG Ondansetron HCl 4 mg Q4HP PRN IV 08/04/25 15:30 08/06/25 02:12 4 MG Morphine Sulfate 2 mg Q30M PRN IV 08/04/25 15:30 Pantoprazole Sodium 40 mg DAILY IV 08/04/25 16:15 08/07/25 10:26 40 MG Dopamine HCl/ Dextrose 250 ml @ 7.481 mls/ hr Q24H IV 08/05/25 06:15 08/07/25 13:41 7.481 MLS/HR Furosemide 40 mg BIDD IV 08/05/25 18:00 08/07/25 17:41 40 MG Acetaminophen 650 mg Q6HP PRN PO 08/07/25 05:15 08/07/25 05:40 650 MG Ceftriaxone Sodium 50 ml @ 100 mls/hr DAILY@09 IV 08/07/25 09:00 08/07/25 10:25 100 MLS/HR Spironolactone 25 mg DAILY PO 08/07/25 11:30 08/07/25 13:42 25 MG Laboratory Results Laboratory Tests 08/07/25 03:00 Chemistry Test 08/07/25 03:00 Calcium Level 8.7 mg/dL (8.7-10.4) Magnesium Level 1.7 mg/dL (1.6-2.6) Urinalysis Test 08/04/25 19:59 Urine Color Colorless (Yellow) Urine Clarity Clear (Clear) Urine pH 5.5 (5.0-9.0) Urine Specific [place] 1.014 (1.001-1.035) Urine Protein Negative (Negative) Urine Ketones Negative (Negative) Urine Blood Trace /uL (Negative) H Urine Nitrite Negative (Negative) Urine Bilirubin Negative (Negative) Urine Urobilinogen Normal mg/dL (Negative) Urine Leukocyte Esterase Negative /uL (Negative) Urine RBC 3 /hpf (0 - 3) Urine Microscopic WBC < 1 /HPF (0-3) Urine Squamous Epithelial Cells None seen /hpf (<5) Urine Bacteria None seen /hpf (None Seen) Urine Hyaline Casts Few /lpf (0 - 2) Urine Sperm Present /hpf (None Seen) Urine Glucose Normal mg/dL (Normal) Microbiology Microbiology Date/Time Source Procedure Growth Status 08/04/25 20:03 Nose MRSA Screen - Final Complete Labs and/or images reviewed: Labs reviewed by me, Image(s) reviewed by me Assessment/Plan Assessment/Plan Ankur Wiggins is a 39-year-old male with no past medical history who presents to the ED with chest pain, nausea, and vomiting that started yesterday. Patient reports that he is incarcerated and symptoms began yesterday around 9:00 a.m. after he ate potatoes and spread. Patient reports the chest pain 9/10 pressure- like and intermittent, nonradiating. Patient also reports that his headache is 9/10 feels like a migraine in his constant in nature. He reports that there are no triggering or alleviating factors. Patient also reports that there are 2 other inmates that have the same symptoms that he has. Initial 12 lead EKG shows normal sinus rhythm with ST segment depression to inferior leads and baseline wander in leads V2 and V5. [place] [address] with lactate of 259. Patient denies tobacco use, drug use, or alcohol use. Patient denies recent trauma or injury, recent travels, recent ingestion of spoiled food, fever, chills, weakness, dizziness, abdominal pain, diarrhea, or urinary symptoms. NSTEMI Cardiogenic shock pericarditis cardiology on board Plan discussed with: Patient Date of Service: Aug 05, 2025 Billing Provider: SONYA HAAS DO Common Visit Codes: [id number] CARE 30-74 MIN SONYA HAAS DO Aug 07, 2025 23:45
--- NOTE | 2025-08-07 23:48 | DVHPN2 ---
Reviewed: Care Plan, Labs, Medications, Previous Orders, Radiology Changes from previous H/P or p: No Changes General: Per HPI Cardiovascular: Chest Pain Gastrointestinal: Nausea, Vomiting Objective Vitals Vital Signs Date Time Temp Pulse Resp B/P (MAP) Pulse Ox O2 Delivery O2 Flow Rate FiO2 08/07/25 22:15 75 21 105/64 (78) 98 08/07/25 22:00 Room Air* 0 21 08/07/25 16:00 98.7 98.7 Intake/Output Intake and Output 08/07/25 07:00 Intake Total 5836.101 ml Output Total 3575 ml Balance 2261.101 ml Intake Oral 3390 ml IV Total 1857.101 ml Other 589 ml Output Urine Total 3575 ml # Bowel Movements 1 General Appearance: Alert, Oriented X3 Cardiovascular: Regular rate Neuro: Normal gait, Normal speech Medications Current Medications Medications Dose Ordered Sig/Luan Route Start Time Stop Time Status Last Admin Dose Admin Norepinephrine Bitartrate 250 ml @ 3.75 mls/hr Q24H IV 08/04/25 15:30 08/07/25 15:00 18.75 MLS/HR Aspirin 81 mg DAILY PO 08/05/25 10:00 08/07/25 10:26 81 MG Atorvastatin Calcium 40 mg HS PO 08/04/25 22:00 08/07/25 21:16 40 MG Ondansetron HCl 4 mg Q4HP PRN IV 08/04/25 15:30 08/06/25 02:12 4 MG Morphine Sulfate 2 mg Q30M PRN IV 08/04/25 15:30 Pantoprazole Sodium 40 mg DAILY IV 08/04/25 16:15 08/07/25 10:26 40 MG Dopamine HCl/ Dextrose 250 ml @ 7.481 mls/ hr Q24H IV 08/05/25 06:15 08/07/25 13:41 7.481 MLS/HR Furosemide 40 mg BIDD IV 08/05/25 18:00 08/07/25 17:41 40 MG Acetaminophen 650 mg Q6HP PRN PO 08/07/25 05:15 08/07/25 05:40 650 MG Ceftriaxone Sodium 50 ml @ 100 mls/hr DAILY@09 IV 08/07/25 09:00 08/07/25 10:25 100 MLS/HR Spironolactone 25 mg DAILY PO 08/07/25 11:30 08/07/25 13:42 25 MG Laboratory Results Laboratory Tests 08/07/25 03:00 Chemistry Test 08/07/25 03:00 Calcium Level 8.7 mg/dL (8.7-10.4) Magnesium Level 1.7 mg/dL (1.6-2.6) Urinalysis Test 08/04/25 19:59 Urine Color Colorless (Yellow) Urine Clarity Clear (Clear) Urine pH 5.5 (5.0-9.0) Urine Specific [place] 1.014 (1.001-1.035) Urine Protein Negative (Negative) Urine Ketones Negative (Negative) Urine Blood Trace /uL (Negative) H Urine Nitrite Negative (Negative) Urine Bilirubin Negative (Negative) Urine Urobilinogen Normal mg/dL (Negative) Urine Leukocyte Esterase Negative /uL (Negative) Urine RBC 3 /hpf (0 - 3) Urine Microscopic WBC < 1 /HPF (0-3) Urine Squamous Epithelial Cells None seen /hpf (<5) Urine Bacteria None seen /hpf (None Seen) Urine Hyaline Casts Few /lpf (0 - 2) Urine Sperm Present /hpf (None Seen) Urine Glucose Normal mg/dL (Normal) Microbiology Microbiology Date/Time Source Procedure Growth Status 08/04/25 20:03 Nose MRSA Screen - Final Complete Labs and/or images reviewed: Labs reviewed by me, Image(s) reviewed by me Assessment/Plan Assessment/Plan Ankur Wiggins is a 39-year-old male with no past medical history who presents to the ED with chest pain, nausea, and vomiting that started yesterday. Patient reports that he is incarcerated and symptoms began yesterday around 9:00 a.m. after he ate potatoes and spread. Patient reports the chest pain 9/10 pressure- like and intermittent, nonradiating. Patient also reports that his headache is 9/10 feels like a migraine in his constant in nature. He reports that there are no triggering or alleviating factors. Patient also reports that there are 2 other inmates that have the same symptoms that he has. Initial 12 lead EKG shows normal sinus rhythm with ST segment depression to inferior leads and baseline wander in leads V2 and V5. [place] [address] with lactate of 259. Patient denies tobacco use, drug use, or alcohol use. Patient denies recent trauma or injury, recent travels, recent ingestion of spoiled food, fever, chills, weakness, dizziness, abdominal pain, diarrhea, or urinary symptoms. NSTEMI Cardiogenic shock pericarditis under the custody of [facility] cardiology on board, recommend HLOC Plan discussed with: Patient Date of Service: Aug 06, 2025 Billing Provider: SONYA HAAS DO Common Visit Codes: [id number] CARE 30-74 MIN SONYA HAAS DO Aug 07, 2025 23:48
--- NOTE | 2025-08-07 23:49 | DVHPN2 ---
Reviewed: Care Plan, Labs, Medications, Previous Orders, Radiology Changes from previous H/P or p: No Changes General: Per HPI Cardiovascular: Chest Pain Gastrointestinal: Nausea, Vomiting Objective Vitals Vital Signs Date Time Temp Pulse Resp B/P (MAP) Pulse Ox O2 Delivery O2 Flow Rate FiO2 08/07/25 22:15 75 21 105/64 (78) 98 08/07/25 22:00 Room Air* 0 21 08/07/25 16:00 98.7 98.7 Intake/Output Intake and Output 08/07/25 07:00 Intake Total 5836.101 ml Output Total 3575 ml Balance 2261.101 ml Intake Oral 3390 ml IV Total 1857.101 ml Other 589 ml Output Urine Total 3575 ml # Bowel Movements 1 General Appearance: Alert, Oriented X3 Cardiovascular: Regular rate Neuro: Normal gait, Normal speech Medications Current Medications Medications Dose Ordered Sig/Luan Route Start Time Stop Time Status Last Admin Dose Admin Norepinephrine Bitartrate 250 ml @ 3.75 mls/hr Q24H IV 08/04/25 15:30 08/07/25 15:00 18.75 MLS/HR Aspirin 81 mg DAILY PO 08/05/25 10:00 08/07/25 10:26 81 MG Atorvastatin Calcium 40 mg HS PO 08/04/25 22:00 08/07/25 21:16 40 MG Ondansetron HCl 4 mg Q4HP PRN IV 08/04/25 15:30 08/06/25 02:12 4 MG Morphine Sulfate 2 mg Q30M PRN IV 08/04/25 15:30 Pantoprazole Sodium 40 mg DAILY IV 08/04/25 16:15 08/07/25 10:26 40 MG Dopamine HCl/ Dextrose 250 ml @ 7.481 mls/ hr Q24H IV 08/05/25 06:15 08/07/25 13:41 7.481 MLS/HR Furosemide 40 mg BIDD IV 08/05/25 18:00 08/07/25 17:41 40 MG Acetaminophen 650 mg Q6HP PRN PO 08/07/25 05:15 08/07/25 05:40 650 MG Ceftriaxone Sodium 50 ml @ 100 mls/hr DAILY@09 IV 08/07/25 09:00 08/07/25 10:25 100 MLS/HR Spironolactone 25 mg DAILY PO 08/07/25 11:30 08/07/25 13:42 25 MG Laboratory Results Laboratory Tests 08/07/25 03:00 Chemistry Test 08/07/25 03:00 Calcium Level 8.7 mg/dL (8.7-10.4) Magnesium Level 1.7 mg/dL (1.6-2.6) Urinalysis Test 08/04/25 19:59 Urine Color Colorless (Yellow) Urine Clarity Clear (Clear) Urine pH 5.5 (5.0-9.0) Urine Specific [place] 1.014 (1.001-1.035) Urine Protein Negative (Negative) Urine Ketones Negative (Negative) Urine Blood Trace /uL (Negative) H Urine Nitrite Negative (Negative) Urine Bilirubin Negative (Negative) Urine Urobilinogen Normal mg/dL (Negative) Urine Leukocyte Esterase Negative /uL (Negative) Urine RBC 3 /hpf (0 - 3) Urine Microscopic WBC < 1 /HPF (0-3) Urine Squamous Epithelial Cells None seen /hpf (<5) Urine Bacteria None seen /hpf (None Seen) Urine Hyaline Casts Few /lpf (0 - 2) Urine Sperm Present /hpf (None Seen) Urine Glucose Normal mg/dL (Normal) Microbiology Microbiology Date/Time Source Procedure Growth Status 08/04/25 20:03 Nose MRSA Screen - Final Complete Assessment/Plan Assessment/Plan Ankur Wiggins is a 39-year-old male with no past medical history who presents to the ED with chest pain, nausea, and vomiting that started yesterday. Patient reports that he is incarcerated and symptoms began yesterday around 9:00 a.m. after he ate potatoes and spread. Patient reports the chest pain 9/10 pressure- like and intermittent, nonradiating. Patient also reports that his headache is 9/10 feels like a migraine in his constant in nature. He reports that there are no triggering or alleviating factors. Patient also reports that there are 2 other inmates that have the same symptoms that he has. Initial 12 lead EKG shows normal sinus rhythm with ST segment depression to inferior leads and baseline wander in leads V2 and V5. [place] [address] with lactate of 259. Patient denies tobacco use, drug use, or alcohol use. Patient denies recent trauma or injury, recent travels, recent ingestion of spoiled food, fever, chills, weakness, dizziness, abdominal pain, diarrhea, or urinary symptoms. NSTEMI Cardiogenic shock pericarditis under the custody of [facility] cardiology on board, recommend HLOC Plan discussed with: Patient Date of Service: Aug 07, 2025 Billing Provider: SONYA HAAS DO Common Visit Codes: [id number] CARE 30-74 MIN SONYA HAAS DO Aug 07, 2025 23:49
[2025-08-08] VITALS (98 sets, daily range): BP systolic 86–114; BP diastolic 41–80; PULSE 51–87; RESP 13–25; TEMP 98–98.7; O2SAT 91–98
[2025-08-08 03:20] LABS: Hematocrit 37.1 % (41.0-53.0); Hemoglobin 12.3 g/dL (13.5-17.5); Mean Corpuscular Hemoglobin 27.5 pg (28.0-32.0); Mean Corpuscular Volume 82.6 fL (80.0-100.0); Nucleated Red Blood Cells % 0.1 %
[2025-08-08 03:31] LABS: Albumin 4.1 g/dL (3.2-4.8); Alkaline Phosphatase 70 U/L (46-116); Anion Gap 9 (5-15); BUN/Creatinine Ratio 16.7 (10.0-20.0); Blood Urea Nitrogen 17 mg/dL (9-23); Calcium 9.3 mg/dL (8.7-10.4); Carbon Dioxide 30 mmol/L (20-31); Chloride 100 mmol/L (98-107); Potassium 4.1 mmol/L (3.5-5.1); Sodium 139 mmol/L (136-145); Total Protein 7.0 g/dL (5.7-8.2)
[2025-08-08 03:32] LABS: Bilirubin, Total 0.5 mg/dL (0.2-1.0)
[2025-08-08 03:36] LABS: Alanine Aminotransferase 84 U/L (7-40); Glucose 164 mg/dL (74-106)
--- NOTE | 2025-08-08 07:13 | ECG ---
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
--- NOTE | 2025-08-08 08:37 | DVHPN2 ---
Progress Note Date Seen: Aug 08, 2025 Medical Necessity Reason Pt with a Central, PICC or Fol: Yes The following are medically ne: Central Line Subjective Other Systems: diuresed 6L awaiting tx to [facility] d/w RN and patient Objective vital signs Vital Sign Date Time Temp Pulse Resp B/P (MAP) Pulse Ox O2 Delivery O2 Flow Rate FiO2 08/08/25 06:45 55 25 87/51 (63) 95 08/08/25 05:51 Room Air* 0 21 08/08/25 04:00 98.0 98.0 Total Intake and Output 08/07/25 08/07/25 08/08/25 15:00 23:00 07:00 Intake Total 829.844 ml 1059.84 ml 552.36 ml Output Total 3800 ml 2725 ml Balance 829.844 ml -2740.16 ml -2172.64 ml medications Current Medications Medications Dose Ordered Sig/Luan Route Start Time Stop Time Status Last Admin Dose Admin Norepinephrine Bitartrate 250 ml @ 3.75 mls/hr Q24H IV 08/04/25 15:30 08/08/25 06:34 11.25 MLS/HR Aspirin 81 mg DAILY PO 08/05/25 10:00 08/07/25 10:26 81 MG Atorvastatin Calcium 40 mg HS PO 08/04/25 22:00 08/07/25 21:16 40 MG Ondansetron HCl 4 mg Q4HP PRN IV 08/04/25 15:30 08/06/25 02:12 4 MG Morphine Sulfate 2 mg Q30M PRN IV 08/04/25 15:30 Pantoprazole Sodium 40 mg DAILY IV 08/04/25 16:15 08/07/25 10:26 40 MG Dopamine HCl/ Dextrose 250 ml @ 7.481 mls/ hr Q24H IV 08/05/25 06:15 08/07/25 13:41 7.481 MLS/HR Furosemide 40 mg BIDD IV 08/05/25 18:00 08/08/25 05:02 40 MG Acetaminophen 650 mg Q6HP PRN PO 08/07/25 05:15 08/07/25 05:40 650 MG Ceftriaxone Sodium 50 ml @ 100 mls/hr DAILY@09 IV 08/07/25 09:00 08/07/25 10:25 100 MLS/HR Spironolactone 25 mg DAILY PO 08/07/25 11:30 08/07/25 13:42 25 MG Examination: GENERAL:Abnormal, HEENT:Abnormal, LUNGS:Abnormal, CVS:Abnormal, ABDOMEN:Abnormal laboratory and microbiology Laboratory Tests 08/08/25 02:44 Test 08/08/25 02:44 Range/Units Serum Glucose 164 H 74-106 mg/dL Microbiology Date/Time Source Procedure Growth Status 08/07/25 07:15 Blood Blood Culture - Preliminary NO GROWTH AFTER 24 HOURS OF INCUBATION. Resulted 08/04/25 20:03 Nose MRSA Screen - Final Complete Problem List/Assessment/Plan Problem List/Assessment/Plan cardiogenic shock myocarditis hypotension LV dysfunction incarcerated added dopamine, on 2 pressors very low VBG, stable lactate recommend last night to transfer to higher level of care for shock eval , possible need for advanced therapies if pt doesnt do well consider stress dosed steroids awaiting a hospitalist to see pt pulm consult renal consult cont diuretics dc heparin recommend tx to higher level of care as pt is pressor dependent currently, at risk for end organ hypoperfusion awaiting hospitalist and pulm eval spoke to mother yesterday spent hours yesterday speaking to [facility] spoke to [facility]--on calls cards sat night didnt say yes or no to transfer, they will turn him down for tx or vad 10/10 to inmate still pressor dependent [facility] cannot accept pt for possible ecmo -they dont do that. recommend eval at tertiary care center if feasible but may be difficult as he is inmate spoke to pt he is ambulating -------08/08 diuresed very well cut lasix to 1x a day now levo down to 6 but now back to 8 perfusing well solumedrol today 40 mins critical care time spent Plan discussed with: Patient, Other (rn) My Orders My Orders Orders - ONELIA SAMSON MD Procedure Category Date Status Time Spironolactone PHA 08/07/25 In Process (Aldactone) 11:30 Communication Order ORDERS 08/07/25 Transmitted 11:26 Imaging Transfer ORDERS 12/1/25 Transmitted Request 07:36 Furosemide Injection PHA 08/08/25 Logged (Lasix Injection) 10:00 Methyprednis PHA 08/08/25 Verified 500mgivpb Solumed 08:45 Dietary Evaluation Review Comments: Monitor PO intke and lab values Expected Outcomes/Goals: Follow a Cardiac Diet Date of Service: Aug 08, 2025 Billing Provider: ONELIA SAMSON MD Common Visit Codes: NOT BILLABLE ONELIA SAMSON MD Aug 08, 2025 08:37
--- NOTE | 2025-08-08 10:46 | DVHDS2 ---
Discharge Summary Date of Admission Aug 04, 2025 at 15:29 Date of Discharge: Aug 08, 2025 Admitting Diagnosis NSTEMI Cardiogenic shock Labs/Diagnostic Data: Laboratory Results Test 08/08/25 02:44 08/07/25 03:00 08/06/25 12:27 08/05/25 02:35 White Blood Count 7.8 10^3/uL (4.4-10.8) Red Blood Count 4.48 10^6/uL (4.5-5.90) Hemoglobin 12.3 g/dL (13.5-17.5) Hematocrit 37.1 % (41.0-53.0) Mean Corpuscular Volume 82.6 fL (80.0-100.0) Mean Corpuscular Hemoglobin 27.5 pg (28.0-32.0) Mean Corpuscular Hemoglobin Concent 33.3 g/dL (32.0-36.0) Red Cell Distribution Width 13.5 % (11.8-14.3) Platelet Count 180 10^3/uL (140-450) Mean Platelet Volume 9.0 fL (6.9-10.8) Neutrophils (%) (Auto) 87.8 % (37.0-80.0) Lymphocytes (%) (Auto) 9.3 % (10.0-50.0) Monocytes (%) (Auto) 2.8 % (0.0-12.0) Eosinophils (%) (Auto) 0.0 % (0.0-7.0) Basophils (%) (Auto) 0.1 % (0.0-2.0) Neutrophils # (Auto) 6.8 10 ^3/uL (1.6-8.6) Lymphocytes # (Auto) 0.7 10 ^3/uL (0.4-5.4) Monocytes # (Auto) 0.2 10 ^3/uL (0-1.3) Eosinophils # (Auto) 0 10 ^3/uL (0-0.8) Basophils # (Auto) 0 10 ^3/uL (0-0.2) Nucleated Red Blood Cells 0.1 % Sodium Level 139 mmol/L (136-145) Potassium Level 4.1 mmol/L (3.5-5.1) Chloride Level 100 mmol/L (98-107) Carbon Dioxide Level 30 mmol/L (20-31) Anion Gap 9 (5-15) Blood Urea Nitrogen 17 mg/dL (9-23) Creatinine 1.02 mg/dL (0.700-1.30) Glomerular Filtration Rate Calc 97 mL/min (>90) BUN/Creatinine Ratio 16.7 (10.0-20.0) Serum Glucose 164 mg/dL (74-106) Calcium Level 9.3 mg/dL (8.7-10.4) Total Bilirubin 0.5 mg/dL (0.2-1.0) Aspartate Amino Transferase (AST) 114 U/L (13-40) Alanine Aminotransferase (ALT) 84 U/L (7-40) Alkaline Phosphatase 70 U/L (46-116) Total Protein 7.0 g/dL (5.7-8.2) Albumin 4.1 g/dL (3.2-4.8) Lactic Acid Level 1.7 mmol/L (0.4-2.0) Magnesium Level 1.7 mg/dL (1.6-2.6) Blood Gas Specimen Type Venous Blood Gas Sample Site Central line Blood Gas Patient Temperature 37.0 Arterial Blood Date Drawn [id number] [place] Test N/a Venous Blood pH 7.386 (7.320-7.430) Venous Blood pCO2 at Patient Temp 43.5 mmHg (38.0-54.0) Venous Blood pO2 at Patient Temp < 36.5 mmHg (23.0-48.0) Venous Blood HCO3 25.5 mmol/L (22.0-29.0) Venous Blood Base Excess 0.2 mmol/L (-2.0-3.0) Blood Gas Modality Room air FiO2 % 21.0 Specimen Drawn By javid Forrest Troponin I High Sensitivity 10912 ng/L (</=54) Triglycerides Level 67 mg/dL (< 150) Cholesterol Level 118 mg/dL (< 200) LDL Cholesterol 75 mg/dL (< 100) HDL Cholesterol 32 mg/dL (40-59) Test 08/04/25 22:40 08/04/25 19:59 08/04/25 14:55 08/04/25 14:45 Prothrombin Time 11.9 sec (9.3-11.8) Prothrombin Time INR 1.14 (0.9-1.15) Activated Partial Thromboplast Time 30.6 SEC (24.5-34.5) Urine Color Colorless (Yellow) Urine Clarity Clear (Clear) Urine pH 5.5 (5.0-9.0) Urine Specific [place] 1.014 (1.001-1.035) Urine Protein Negative (Negative) Urine Ketones Negative (Negative) Urine Blood Trace /uL (Negative) Urine Nitrite Negative (Negative) Urine Bilirubin Negative (Negative) Urine Urobilinogen Normal mg/dL (Negative) Urine Leukocyte Esterase Negative /uL (Negative) Urine RBC 3 /hpf (0 - 3) Urine Microscopic WBC < 1 /HPF (0-3) Urine Squamous Epithelial Cells None seen /hpf (<5) Urine Bacteria None seen /hpf (None Seen) Urine Hyaline Casts Few /lpf (0 - 2) Urine Sperm Present /hpf (None Seen) Urine Glucose Normal mg/dL (Normal) Urine Opiates Screen Neg (NEGATIVE) Urine Fentanyl Screen Neg (NEGATIVE) Urine Barbiturates Screen Neg (NEGATIVE) Urine Phencyclidine Screen Neg (NEGATIVE) Urine Amphetamines Screen Neg (NEGATIVE) Urine Benzodiazepines Screen Neg (NEGATIVE) Urine Cocaine Screen Neg (NEGATIVE) Urine Cannabinoids Screen Neg (NEGATIVE) SARS-CoV-2 Antigen (Rapid) Negative (NEGATIVE) Influenza Type A Antigen Negative (Negative) Influenza Type B Antigen Negative (Negative) Test 08/04/25 14:11 Hemoglobin A1c 5.4 % A1C (<5.7) Lactate Dehydrogenase 259 U/L (120-246) B-Type Natriuretic Peptide 123.49 pg/mL (0-100) Thyroid Stimulating Hormone (TSH) 1.69 uIU/mL (0.55-4.78) Free Thyroxine (T4) Calculated 0.86 ng/dL (0.89-1.76) Other Laboratory Tests 08/08/25 02:44 Brief Hx & Hospital Course: History of Present Illness Ankur Wiggins is a 39-year-old male with no past medical history who presents to the ED with chest pain, nausea, and vomiting that started yesterday. Patient reports that he is incarcerated and symptoms began yesterday around 9:00 a.m. after he ate potatoes and spread. Patient reports the chest pain 9/10 pressure- like and intermittent, nonradiating. Patient also reports that his headache is 9/10 feels like a migraine in his constant in nature. He reports that there are no triggering or alleviating factors. Patient also reports that there are 2 other inmates that have the same symptoms that he has. Initial 12 lead EKG shows normal sinus rhythm with ST segment depression to inferior leads and baseline wander in leads V2 and V5[place] [address] with lactate of 259. Patient denies tobacco use, drug use, or alcohol use. Patient denies recent trauma or injury, recent travels, recent ingestion of spoiled food, fever, chills, weakness, dizziness, abdominal pain, diarrhea, or urinary symptoms. Course of hospitalization: Patient had significant elevations in troponin level as well as lactic acidosis. Cardiology consultation was obtained. Patient had left heart catheterization, without any findings of CAD amenable to intervention. Recommendations by Cardiology were to transfer to higher level of care given possible multi organ dysfunction secondary to hypoperfusion given patient is continuing to require multiple vasopressors and inotropes. Patient's symptoms have somewhat improved. He continues to be on dopamine and norepinephrine. Patient's LFTs and renal function are within normal limits at this time. Patient has been accepted to [facility] for further evaluation of his underlying cardiogenic shock with myocarditis. Patient was agreeable to transfer. All questions answered. Physical examination General: Alert and Oriented x3. No acute distress. Well-nourished. Eyes: EOMI. Anicteric. HENT: Moist mucous membranes. Lungs: Clear to auscultation bilaterally. No accessory muscle use. Cardiovascular: Regular rate and rhythm. No murmur. No JVD. Abdomen: Soft, non-tender and non-distended. No palpable masses. Extremities: No edema. Non-tender. Skin: No rashes or lesions. Warm. Neurologic: No focal neurological deficits. CN II-XII grossly intact, but not individually tested. Psychiatric: Cooperative. Appropriate mood and affect. Total time spent with patient discussing and formulating plan of care: 35 minutes. This medical document was created using an electronic medical record system with [employer] dictation system. Although this document has been carefully reviewed, there may still be some phonetic and typographical errors. These areas are purely typographical due to imperfections of the software programs, and do not reflect any compromise in the patient's medical care. Consults/Reason for consult Cardiology: NSTEMI. Myocarditis Operations or Procedures Left heart catheterization Condition at Discharge: Guarded Final Diagnosis/Problems List Cardiogenic shock with myocarditis Discharge Disposition: Acute Care Facility Discharge Instruct/Medications Diet: Consistent carbohydrate Activity: No Restrictions, As Tolerated Follow Up/Referral: Per accepting provider Medications: Refer to medication reconciliation 36 Discharge Statement: "Patient was advised to return to the ER or call 911 if any headaches, dizziness, shortness of breath, chest pain, abdominal pain, bleeding, fevers, or worsening of medical condition. Patient was counseled about treatment plan, medications, possible side effects, patientverbalized understanding. All questions were answered to the best of my ability. This discharge took greater then 30 minutes in planning, reviewing documentation, counseling the patient, and discussing with other team members." ASSESSMENT ASSESSMENT Assessment Date of Service: Aug 08, 2025 Billing Provider: MAGED LEE NP Common Visit Codes: 16206-YIT/OBS DISCH DAY >30min MAGED LEE NP Aug 08, 2025 10:46
[2025-08-08] MEDS: methylPREDNISolone SOD SUCC 500 MG in SODIUM CHL 0.9% 100 ML IV ONE (11:02)
--- NOTE | 2025-08-08 12:06 | DVH ---
CHEST RADIOGRAPH Indication: chest pain, pna Technique: Single frontal view of the chest was obtained Comparison: XY CHEST PORTABLE on DOS: 08/04/25 FINDINGS: Lines and Tubes: Right central venous catheter tip in the cavoatrial junction. Lungs: No focal consolidation. Pleura: No effusion. No pneumothorax. Cardiomediastinal contours: Unremarkable Bones: No acute osseous abnormality. IMPRESSION: No acute cardiopulmonary disease.
--- NOTE | 2025-08-08 13:28 | DVHPN2 ---
Progress Note Date Seen: Aug 08, 2025 Medical Necessity Reason Pt with a Central, PICC or Fol: Yes The following are medically ne: Central Line Subjective Patient reports: No new complaints Other Systems: Patient seen and examined by myself today in follow-up Objective vital signs Vital Sign Date Time Temp Pulse Resp B/P (MAP) Pulse Ox O2 Delivery O2 Flow Rate FiO2 08/08/25 12:30 66 18 107/68 (81) 08/08/25 12:15 96 08/08/25 12:00 Room Air* 0 21 08/08/25 07:00 98.0 98.0 Total Intake and Output 08/07/25 08/07/25 08/08/25 15:00 23:00 07:00 Intake Total 829.844 ml 1059.84 ml 559.84 ml Output Total 3800 ml 2725 ml Balance 829.844 ml -2740.16 ml -2165.16 ml medications Current Medications Medications Dose Ordered Sig/Luan Route Start Time Stop Time Status Last Admin Dose Admin Norepinephrine Bitartrate 250 ml @ 3.75 mls/hr Q24H IV 08/04/25 15:30 08/08/25 06:34 11.25 MLS/HR Aspirin 81 mg DAILY PO 08/05/25 10:00 08/08/25 09:13 81 MG Atorvastatin Calcium 40 mg HS PO 08/04/25 22:00 08/07/25 21:16 40 MG Ondansetron HCl 4 mg Q4HP PRN IV 08/04/25 15:30 08/06/25 02:12 4 MG Morphine Sulfate 2 mg Q30M PRN IV 08/04/25 15:30 Pantoprazole Sodium 40 mg DAILY IV 08/04/25 16:15 08/08/25 09:13 40 MG Dopamine HCl/ Dextrose 250 ml @ 7.481 mls/ hr Q24H IV 08/05/25 06:15 08/07/25 13:41 7.481 MLS/HR Acetaminophen 650 mg Q6HP PRN PO 08/07/25 05:15 08/07/25 05:40 650 MG Ceftriaxone Sodium 50 ml @ 100 mls/hr DAILY@09 IV 08/07/25 09:00 08/08/25 09:13 100 MLS/HR Spironolactone 25 mg DAILY PO 08/07/25 11:30 12/1/25 09:13 25 MG Furosemide 40 mg DAILY IV 08/09/25 10:00 Examination: LUNGS:Normal, CVS:Normal, MSK:Normal laboratory and microbiology Laboratory Tests 08/08/25 02:44 Test 08/08/25 02:44 Range/Units Serum Glucose 164 H 74-106 mg/dL Microbiology Date/Time Source Procedure Growth Status 08/07/25 07:15 Blood Blood Culture - Preliminary NO GROWTH AFTER 24 HOURS OF INCUBATION. Resulted 08/04/25 20:03 Nose MRSA Screen - Final Complete Problem List/Assessment/Plan Problem List/Assessment/Plan Acute kidney injury hemodynamically mediated in the setting of cardiogenic shock Acute myocarditis Cardiogenic shock on pressors Congestive heart failure, ejection fraction 45% Recommendations Kidney function is improving Increased urine output Strict I&Os I agree with diuresis IV pressors for blood pressure support KCL replacement We will continue to follow up Plan discussed with: Patient Dietary Evaluation Review Comments: Monitor PO intke and lab values Expected Outcomes/Goals: Follow a Cardiac Diet ENA WALTERS MD Aug 08, 2025 13:28
--- NOTE | 2025-08-08 14:27 | DVHPN2 ---
Progress Note - Dictate Date Seen: Aug 08, 2025 Medical Necessity Reason Pt with a Central, PICC or Fol: Yes The following are medically ne: Central Line vital signs Vital Sign Date Time Temp Pulse Resp B/P (MAP) Pulse Ox O2 Delivery O2 Flow Rate FiO2 08/08/25 14:15 55 22 101/65 (77) 97 08/08/25 14:00 Room Air* 0 21 08/08/25 07:00 98.0 98.0 Total Intake and Output 08/07/25 08/07/25 08/08/25 15:00 23:00 07:00 Intake Total 829.844 ml 1059.84 ml 559.84 ml Output Total 3800 ml 2725 ml Balance 829.844 ml -2740.16 ml -2165.16 ml medications Current Medications Medications Dose Ordered Sig/Luan Route Start Time Stop Time Status Last Admin Dose Admin Norepinephrine Bitartrate 250 ml @ 3.75 mls/hr Q24H IV 08/04/25 15:30 08/08/25 13:00 11.25 MLS/HR Aspirin 81 mg DAILY PO 08/05/25 10:00 08/08/25 09:13 81 MG Atorvastatin Calcium 40 mg HS PO 08/04/25 22:00 08/07/25 21:16 40 MG Ondansetron HCl 4 mg Q4HP PRN IV 08/04/25 15:30 08/06/25 02:12 4 MG Morphine Sulfate 2 mg Q30M PRN IV 08/04/25 15:30 Pantoprazole Sodium 40 mg DAILY IV 08/04/25 16:15 08/08/25 09:13 40 MG Dopamine HCl/ Dextrose 250 ml @ 7.481 mls/ hr Q24H IV 08/05/25 06:15 08/07/25 13:41 7.481 MLS/HR Acetaminophen 650 mg Q6HP PRN PO 08/07/25 05:15 08/07/25 05:40 650 MG Ceftriaxone Sodium 50 ml @ 100 mls/hr DAILY@09 IV 08/07/25 09:00 08/08/25 09:13 100 MLS/HR Spironolactone 25 mg DAILY PO 08/07/25 11:30 08/08/25 09:13 25 MG Furosemide 40 mg DAILY IV 08/09/25 10:00 laboratory and microbiology Laboratory Tests 08/08/25 02:44 Test 08/08/25 02:44 Range/Units Serum Glucose 164 H 74-106 mg/dL Assessment/Plan myocarditis atelectases elevated troponins cardiogenic shock pt seen and examined on ICU events none on room air remains on 2 pressors for hemodynamic support labs and imaging studies reviewed cont levophed and dopamine titrate to MAP above 65 mm Hg suppl 02 as needed sats above 92% incent sp diurese monitor lytes replace K and Mag otherwise management deferred to cardiology dvt proph crit care time 35 min Dietary Evaluation Review Comments: Monitor PO intke and lab values Expected Outcomes/Goals: Follow a Cardiac Diet Plan discussed with: Other (Rn) PASQUALE CARMONA MD Aug 08, 2025 14:27
[2025-08-08 14:48] LABS: Urine Protein, UAD TRACE (Negative)
[2025-08-08 15:10] LABS: Protein, Urine 32.2 mg/dL (1-14)
[2025-08-09] VITALS (92 sets, daily range): BP systolic 79–122; BP diastolic 38–73; PULSE 55–118; RESP 12–27; TEMP 97.1–98; O2SAT 91–100
[2025-08-09 03:43] LABS: Hematocrit 35.6 % (41.0-53.0); Hemoglobin 11.8 g/dL (13.5-17.5); Mean Corpuscular Hemoglobin 27.3 pg (28.0-32.0); Mean Corpuscular Volume 82.5 fL (80.0-100.0); Nucleated Red Blood Cells % 0.0 %
[2025-08-09 04:10] LABS: Albumin 3.5 g/dL (3.2-4.8); Alkaline Phosphatase 68 U/L (46-116); Anion Gap 10 (5-15); BUN/Creatinine Ratio 27.1 (10.0-20.0); Bilirubin, Total 0.4 mg/dL (0.2-1.0); Blood Urea Nitrogen 23 mg/dL (9-23); Calcium 9.2 mg/dL (8.7-10.4); Chloride 101 mmol/L (98-107); Magnesium 2.3 mg/dL (1.6-2.6); Potassium 4.0 mmol/L (3.5-5.1); Sodium 142 mmol/L (136-145); Total Protein 6.2 g/dL (5.7-8.2)
[2025-08-09 04:13] LABS: Alanine Aminotransferase 69 U/L (7-40); Carbon Dioxide 31 mmol/L (20-31); Glucose 130 mg/dL (74-106)
[2025-08-09] MEDS: FUROSEMIDE 40 MG/4 ML VIAL IV SCH (09:02)
[2025-08-09 09:32] LABS: Urine Protein, UAD Negative (Negative)
[2025-08-09] MEDS: methylPREDNISolone SOD SUCC 40 MG/ML VL IV SCH (10:26)
--- NOTE | 2025-08-09 10:38 | DVHPN2 ---
Subjective Patient denies any symptoms at this time. Reviewed: Care Plan, Labs, Medications, Previous Orders, Radiology Changes from previous H/P or p: No Changes General: Per HPI Cardiovascular: Chest Pain Gastrointestinal: Nausea, Vomiting Objective Vitals Vital Signs Date Time Temp Pulse Resp B/P (MAP) Pulse Ox O2 Delivery O2 Flow Rate FiO2 08/09/25 10:28 105/67 08/09/25 06:15 61 97 08/09/25 06:00 Room Air* 0 21 08/09/25 04:00 13 08/09/25 04:00 97.8 97.8 Intake/Output Intake and Output 08/09/25 07:00 Intake Total 1212.063 ml Output Total 2255 ml Balance -1042.937 ml Intake Oral 1040 ml IV Total 172.063 ml Output Urine Total 2255 ml General Appearance: Alert, Oriented X3, Cooperative HEENT: Atraumatic, PERRLA Cardiovascular: Regular rate, Normal S1, Normal S2 Abdomen: Normal bowel sounds, Soft, No tenderness, No hepatospenomegaly Genitourinary: No Apparent Abnormalities Neuro: Normal gait, Normal speech Skin: Dry, Intact Psych/Mental Status: Mental status NL, Mood NL Medications Current Medications Medications Dose Ordered Sig/Luan Route Start Time Stop Time Status Last Admin Dose Admin Norepinephrine Bitartrate 250 ml @ 3.75 mls/hr Q24H IV 08/04/25 15:30 08/09/25 10:28 7.5 MLS/HR Aspirin 81 mg DAILY PO 08/05/25 10:00 08/09/25 09:01 81 MG Atorvastatin Calcium 40 mg HS PO 08/04/25 22:00 08/08/25 22:12 40 MG Ondansetron HCl 4 mg Q4HP PRN IV 08/04/25 15:30 08/06/25 02:12 4 MG Morphine Sulfate 2 mg Q30M PRN IV 08/04/25 15:30 Pantoprazole Sodium 40 mg DAILY IV 08/04/25 16:15 08/09/25 09:01 40 MG Dopamine HCl/ Dextrose 250 ml @ 7.481 mls/ hr Q24H IV 08/05/25 06:15 08/07/25 13:41 7.481 MLS/HR Acetaminophen 650 mg Q6HP PRN PO 08/07/25 05:15 08/07/25 05:40 650 MG Ceftriaxone Sodium 50 ml @ 100 mls/hr DAILY@09 IV 08/07/25 09:00 08/09/25 09:00 100 MLS/HR Spironolactone 25 mg DAILY PO 08/07/25 11:30 08/09/25 09:01 25 MG Furosemide 40 mg DAILY IV 08/09/25 10:00 08/09/25 09:02 40 MG Methylprednisolone Sodium Succinate 40 mg BID IV 08/09/25 10:00 08/09/25 10:26 40 MG Laboratory Results Laboratory Tests 08/09/25 02:52 Chemistry Test 08/09/25 02:52 Albumin 3.5 g/dL (3.2-4.8) Calcium Level 9.2 mg/dL (8.7-10.4) Magnesium Level 2.3 mg/dL (1.6-2.6) Total Protein 6.2 g/dL (5.7-8.2) LFT Test 08/09/25 02:52 Alanine Aminotransferase (ALT) 69 U/L (7-40) H Alkaline Phosphatase 68 U/L (46-116) Aspartate Amino Transferase (AST) 60 U/L (13-40) H Total Bilirubin 0.4 mg/dL (0.2-1.0) Urinalysis Test 08/04/25 19:59 08/08/25 14:34 08/08/25 14:35 08/09/25 09:00 Urine Hyaline Casts Few /lpf (0 - 2) Urine Sperm Present /hpf (None Seen) Urine Protein/Creatinine Ratio 0.38 Urine Total Protein 32.2 mg/dL (1-14) H Urine Creatinine 84.63 mg/dL (30.0-125.0) Urine Sodium 32 mmol/L (40-220) L Urine Color Light-yellow (Yellow) Urine Clarity Clear (Clear) Urine pH 7.0 (5.0-9.0) Urine Specific [place] 1.014 (1.001-1.035) Urine Protein Negative (Negative) Urine Ketones Negative (Negative) Urine Blood Negative /uL (Negative) Urine Nitrite Negative (Negative) Urine Bilirubin Negative (Negative) Urine Urobilinogen Normal mg/dL (Negative) Urine Leukocyte Esterase Negative /uL (Negative) Urine RBC <1 /hpf (0 - 3) Urine Microscopic WBC 1 /HPF (0-3) Urine Squamous Epithelial Cells None seen /hpf (<5) Urine Bacteria None seen /hpf (None Seen) Urine Glucose Normal mg/dL (Normal) Microbiology Microbiology Date/Time Source Procedure Growth Status 08/07/25 07:15 Blood Blood Culture - Preliminary NO GROWTH AFTER 48 HOURS OF INCUBATION. Resulted 08/04/25 20:03 Nose MRSA Screen - Final Complete Labs and/or images reviewed: Labs reviewed by me, Image(s) reviewed by me Assessment/Plan Assessment/Plan Impression: -NSTEMI type 2 -myocarditis -transaminitis -cardiogenic shock Plan: -rheumatoid factor noted to be elevated. Also check ESR, CRP yesterday both elevated. -restart IV Solu-Medrol -continue to wean norepinephrine to keep map greater than 65 mm of mercury. Continue dopamine at 2.5 mcg/kg per minute -chest x-ray, unremarkable -continue with transferred to higher level of care Critical care time spent with patient discussing and formulating plan of care: 40 minutes. This does not include time spent performing procedures. This medical document was created using an electronic medical record system with [employer] dictation system. Although this document has been carefully reviewed, there may still be some phonetic and typographical errors. These areas are purely typographical due to imperfections of the software programs, and do not reflect any compromise in the patient's medical care. Plan discussed with: Patient, Other (RN) My Orders Orders - MAGED LEE NP Procedure Category Date Status Time Chest Xray 1 View XY 08/08/25 Resulted 10:40 Discharge DISCHARGE 08/08/25 Transmitted 10:41 Mrsa Screen PENNY 08/08/25 In Process 17:40 * Wound Consult CONS 08/08/25 Transmitted Methylprednisolone PHA 08/09/25 In Process Sod Succ (Solu Medrol 10:00 Date of Service: Aug 09, 2025 Billing Provider: MAGED LEE NP Common Visit Codes: [id number] CARE 30-74 MIN MAGED LEE NP Aug 09, 2025 10:38
--- NOTE | 2025-08-09 11:47 | DVHPN2 ---
Progress Note - Dictate Date Seen: Aug 09, 2025 Medical Necessity Reason Pt with a Central, PICC or Fol: Yes The following are medically ne: Central Line vital signs Vital Sign Date Time Temp Pulse Resp B/P (MAP) Pulse Ox O2 Delivery O2 Flow Rate FiO2 08/09/25 10:45 64 16 87/56 (66) 98 08/09/25 06:00 Room Air* 0 21 08/09/25 04:00 97.8 97.8 Total Intake and Output 08/08/25 08/08/25 08/09/25 15:00 23:00 07:00 Intake Total 59.848 ml 619.848 ml 532.367 ml Output Total 1055 ml 1200 ml Balance 59.848 ml -435.152 ml -667.633 ml medications Current Medications Medications Dose Ordered Sig/Luan Route Start Time Stop Time Status Last Admin Dose Admin Norepinephrine Bitartrate 250 ml @ 3.75 mls/hr Q24H IV 08/04/25 15:30 08/09/25 10:28 7.5 MLS/HR Aspirin 81 mg DAILY PO 08/05/25 10:00 08/09/25 09:01 81 MG Atorvastatin Calcium 40 mg HS PO 08/04/25 22:00 08/08/25 22:12 40 MG Ondansetron HCl 4 mg Q4HP PRN IV 08/04/25 15:30 08/06/25 02:12 4 MG Morphine Sulfate 2 mg Q30M PRN IV 08/04/25 15:30 Pantoprazole Sodium 40 mg DAILY IV 08/04/25 16:15 08/09/25 09:01 40 MG Dopamine HCl/ Dextrose 250 ml @ 7.481 mls/ hr Q24H IV 08/05/25 06:15 08/07/25 13:41 7.481 MLS/HR Acetaminophen 650 mg Q6HP PRN PO 08/07/25 05:15 08/07/25 05:40 650 MG Ceftriaxone Sodium 50 ml @ 100 mls/hr DAILY@09 IV 08/07/25 09:00 08/09/25 09:00 100 MLS/HR Spironolactone 25 mg DAILY PO 08/07/25 11:30 08/09/25 09:01 25 MG Furosemide 40 mg DAILY IV 08/09/25 10:00 08/09/25 09:02 40 MG Methylprednisolone Sodium Succinate 40 mg BID IV 08/09/25 10:00 08/09/25 10:26 40 MG laboratory and microbiology Laboratory Tests 08/09/25 02:52 Test 08/09/25 02:52 Range/Units Serum Glucose 130 H 74-106 mg/dL Assessment/Plan myocarditis atelectases elevated troponins cardiogenic shock pt seen and examined on ICU events none on room air remains on pressors labs and imaging studies reviewed cont levophed and dopamine titrate to MAP above 65 mm Hg suppl 02 as needed sats above 92% incent sp diurese monitor lytes replace K and Mag otherwise management deferred to cardiology dvt proph crit care time 35 min Dietary Evaluation Review Comments: Monitor PO intke and lab values Expected Outcomes/Goals: Follow a Cardiac Diet Plan discussed with: Patient PASQUALE CARMONA MD Aug 09, 2025 11:47
--- NOTE | 2025-08-09 14:43 | DVHPN2 ---
Progress Note Date Seen: Aug 09, 2025 Medical Necessity Reason Pt with a Central, PICC or Fol: Yes The following are medically ne: Central Line Subjective Patient reports: No new complaints Other Systems: Patient seen and examined by myself today in follow-up Objective vital signs Vital Sign Date Time Temp Pulse Resp B/P (MAP) Pulse Ox O2 Delivery O2 Flow Rate FiO2 08/09/25 14:30 60 20 105/60 (75) 95 08/09/25 14:00 Room Air* 0 21 08/09/25 12:00 97.8 97.8 Total Intake and Output 08/08/25 08/08/25 08/09/25 15:00 23:00 07:00 Intake Total 59.848 ml 619.848 ml 539.848 ml Output Total 1055 ml 1200 ml Balance 59.848 ml -435.152 ml -660.152 ml medications Current Medications Medications Dose Ordered Sig/Luan Route Start Time Stop Time Status Last Admin Dose Admin Norepinephrine Bitartrate 250 ml @ 3.75 mls/hr Q24H IV 08/04/25 15:30 08/09/25 10:28 7.5 MLS/HR Aspirin 81 mg DAILY PO 08/05/25 10:00 08/09/25 09:01 81 MG Atorvastatin Calcium 40 mg HS PO 08/04/25 22:00 08/08/25 22:12 40 MG Ondansetron HCl 4 mg Q4HP PRN IV 08/04/25 15:30 08/06/25 02:12 4 MG Morphine Sulfate 2 mg Q30M PRN IV 08/04/25 15:30 Pantoprazole Sodium 40 mg DAILY IV 08/04/25 16:15 08/09/25 09:01 40 MG Dopamine HCl/ Dextrose 250 ml @ 7.481 mls/ hr Q24H IV 08/05/25 06:15 08/09/25 14:17 7.481 MLS/HR Acetaminophen 650 mg Q6HP PRN PO 08/07/25 05:15 08/07/25 05:40 650 MG Ceftriaxone Sodium 50 ml @ 100 mls/hr DAILY@09 IV 08/07/25 09:00 08/09/25 09:00 100 MLS/HR Spironolactone 25 mg DAILY PO 08/07/25 11:30 08/09/25 09:01 25 MG Furosemide 40 mg DAILY IV 08/09/25 10:00 08/09/25 09:02 40 MG Methylprednisolone Sodium Succinate 40 mg BID IV 08/09/25 10:00 08/09/25 10:26 40 MG Examination: LUNGS:Normal, CVS:Normal, MSK:Normal laboratory and microbiology Laboratory Tests 08/09/25 02:52 Test 08/09/25 02:52 Range/Units Serum Glucose 130 H 74-106 mg/dL Microbiology Date/Time Source Procedure Growth Status 08/08/25 17:37 Nose MRSA Screen - Final Complete 08/07/25 07:15 Blood Blood Culture - Preliminary NO GROWTH AFTER 48 HOURS OF INCUBATION. Resulted Problem List/Assessment/Plan Problem List/Assessment/Plan Acute kidney injury hemodynamically mediated in the setting of cardiogenic shock Acute myocarditis Cardiogenic shock on pressors Congestive heart failure, ejection fraction 45% Recommendations Kidney function resolved back to normal Increased urine output Strict I&Os I agree with diuresis KCL replacement Noted plan for transfer to higher level Of care I will sign off this case please reconsult as needed Thank you for the consult Plan discussed with: Patient Dietary Evaluation Review Comments: Monitor PO intke and lab values Expected Outcomes/Goals: Follow a Cardiac Diet ENA WALTERS MD Aug 09, 2025 14:43
[2025-08-09] MEDS: NOREPINEPHRINE 8 MG/250ML KIT 250 ML IV SCH (17:00)
[2025-08-09] MEDS: DOCUSATE SOD 100 MG CAP PO SCH (21:56)
[2025-08-10] VITALS (95 sets, daily range): BP systolic 81–117; BP diastolic 38–72; PULSE 50–93; RESP 11–26; TEMP 97.8–98.7; O2SAT 92–100
[2025-08-10 04:00] LABS: Hemoglobin 12.1 g/dL (13.5-17.5); Nucleated Red Blood Cells % 0.0 %
[2025-08-10 04:03] LABS: Hematocrit 36.5 % (41.0-53.0); Mean Corpuscular Hemoglobin 27.8 pg (28.0-32.0); Mean Corpuscular Volume 83.6 fL (80.0-100.0)
[2025-08-10 04:19] LABS: Albumin 3.7 g/dL (3.2-4.8); Alkaline Phosphatase 63 U/L (46-116); Anion Gap 7 (5-15); BUN/Creatinine Ratio 26.8 (10.0-20.0); Blood Urea Nitrogen 22 mg/dL (9-23); Calcium 9.0 mg/dL (8.7-10.4); Carbon Dioxide 30 mmol/L (20-31); Chloride 104 mmol/L (98-107); Potassium 4.2 mmol/L (3.5-5.1); Sodium 141 mmol/L (136-145); Total Protein 6.6 g/dL (5.7-8.2)
[2025-08-10 04:20] LABS: Bilirubin, Total 0.4 mg/dL (0.2-1.0)
[2025-08-10 04:25] LABS: Alanine Aminotransferase 58 U/L (7-40); Glucose 112 mg/dL (74-106)
--- NOTE | 2025-08-10 07:49 | DVHPN2 ---
Progress Note Date Seen: Aug 10, 2025 Medical Necessity Reason Pt with a Central, PICC or Fol: Yes The following are medically ne: Central Line Subjective Patient reports: Feels better Other Systems: down to 1 of levo Objective vital signs Vital Sign Date Time Temp Pulse Resp B/P (MAP) Pulse Ox O2 Delivery O2 Flow Rate FiO2 08/10/25 07:30 110/66 08/10/25 06:30 53 20 95 08/10/25 06:00 Room Air* 0 21 08/10/25 00:00 98.7 98.7 Total Intake and Output 08/09/25 08/09/25 08/10/25 15:00 23:00 07:00 Intake Total 159.848 ml 559.848 ml 460.928 ml Output Total 2000 ml 1690 ml Balance 159.848 ml -1440.152 ml -1229.072 ml medications Current Medications Medications Dose Ordered Sig/Luan Route Start Time Stop Time Status Last Admin Dose Admin Aspirin 81 mg DAILY PO 08/05/25 10:00 08/09/25 09:01 81 MG Atorvastatin Calcium 40 mg HS PO 08/04/25 22:00 08/09/25 21:56 40 MG Ondansetron HCl 4 mg Q4HP PRN IV 08/04/25 15:30 08/06/25 02:12 4 MG Morphine Sulfate 2 mg Q30M PRN IV 08/04/25 15:30 Pantoprazole Sodium 40 mg DAILY IV 08/04/25 16:15 08/09/25 09:01 40 MG Dopamine HCl/ Dextrose 250 ml @ 7.481 mls/ hr Q24H IV 08/05/25 06:15 08/09/25 14:17 7.481 MLS/HR Acetaminophen 650 mg Q6HP PRN PO 08/07/25 05:15 08/07/25 05:40 650 MG Ceftriaxone Sodium 50 ml @ 100 mls/hr DAILY@09 IV 08/07/25 09:00 08/09/25 09:00 100 MLS/HR Spironolactone 25 mg DAILY PO 08/07/25 11:30 08/09/25 09:01 25 MG Furosemide 40 mg DAILY IV 08/09/25 10:00 08/09/25 09:02 40 MG Methylprednisolone Sodium Succinate 40 mg BID IV 12/2/25 10:00 08/09/25 21:56 40 MG Norepinephrine Bitartrate 250 ml @ 3.75 mls/hr Q24H IV 08/09/25 17:00 08/09/25 17:00 6.563 MLS/HR Docusate Sodium 100 mg HS PO 08/09/25 22:00 08/09/25 21:56 100 MG Examination: GENERAL:Abnormal, HEENT:Abnormal, CVS:Normal, CVS:Abnormal, ABDOMEN:Abnormal laboratory and microbiology Laboratory Tests 08/10/25 03:37 Test 08/10/25 03:37 Range/Units Serum Glucose 112 H 74-106 mg/dL Microbiology Date/Time Source Procedure Growth Status 08/08/25 17:37 Nose MRSA Screen - Final Complete 08/07/25 07:15 Blood Blood Culture - Preliminary NO GROWTH AFTER 72 HOURS OF INCUBATION. Resulted Problem List/Assessment/Plan Problem List/Assessment/Plan cardiogenic shock myocarditis hypotension LV dysfunction incarcerated added dopamine, on 2 pressors very low VBG, stable lactate recommend last night to transfer to higher level of care for shock eval , possible need for advanced therapies if pt doesnt do well consider stress dosed steroids awaiting a hospitalist to see pt pulm consult renal consult cont diuretics dc heparin recommend tx to higher level of care as pt is pressor dependent currently, at risk for end organ hypoperfusion awaiting hospitalist and pulm eval spoke to mother yesterday spent hours yesterday speaking to OSH spoke to [facility]--on calls cards sat night didnt say yes or no to transfer, they will turn him down for tx or vad 10/10 to inmate still pressor dependent [facility] cannot accept pt for possible ecmo -they dont do that. recommend eval at tertiary care center if feasible but may be difficult as he is inmate spoke to pt he is ambulating -------08/08 diuresed very well cut lasix to 1x a day now levo down to 6 but now back to 8 perfusing well solumedrol today wean off levo today daily lasix wean off dopamine later possibly off pressors in next 24-36 hours transfer pending though appears [facility] has not promptly accepedt the patient 40 mins critical care time spent Plan discussed with: Patient My Orders My Orders Orders - ONELIA SAMSON MD Procedure Category Date Status Time Norepinephrine 8 PHA 08/09/25 In Process Mg/250ml Kit 17:00 Dietary Evaluation Review Comments: Monitor PO intke and lab values Expected Outcomes/Goals: Follow a Cardiac Diet Date of Service: Aug 10, 2025 Billing Provider: ONELIA SAMSON MD Common Visit Codes: NOT BILLABLE ONELIA SAMSON MD Aug 10, 2025 07:49
--- NOTE | 2025-08-10 09:12 | DVHPN2 ---
Subjective Patient denies any symptoms at this time. Reviewed: Care Plan, Labs, Medications, Previous Orders, Radiology Changes from previous H/P or p: No Changes General: Per HPI Cardiovascular: Chest Pain Gastrointestinal: Nausea, Vomiting Objective Vitals Vital Signs Date Time Temp Pulse Resp B/P (MAP) Pulse Ox O2 Delivery O2 Flow Rate FiO2 08/10/25 08:28 98/57 08/10/25 06:30 53 20 95 08/10/25 06:00 Room Air* 0 21 08/10/25 00:00 98.7 98.7 Intake/Output Intake and Output 08/10/25 07:00 Intake Total 1180.624 ml Output Total 3690 ml Balance -2509.376 ml Intake Oral 900 ml IV Total 280.624 ml Output Urine Total 3690 ml General Appearance: Alert, Oriented X3, Cooperative HEENT: Atraumatic, PERRLA Cardiovascular: Regular rate, Normal S1, Normal S2 Abdomen: Normal bowel sounds, Soft, No tenderness, No hepatospenomegaly Genitourinary: No Apparent Abnormalities Neuro: Normal gait, Normal speech Skin: Dry, Intact Psych/Mental Status: Mental status NL, Mood NL Medications Current Medications Medications Dose Ordered Sig/Luan Route Start Time Stop Time Status Last Admin Dose Admin Aspirin 81 mg DAILY PO 08/05/25 10:00 08/10/25 08:27 81 MG Atorvastatin Calcium 40 mg HS PO 08/04/25 22:00 08/09/25 21:56 40 MG Ondansetron HCl 4 mg Q4HP PRN IV 08/04/25 15:30 08/06/25 02:12 4 MG Morphine Sulfate 2 mg Q30M PRN IV 08/04/25 15:30 Pantoprazole Sodium 40 mg DAILY IV 08/04/25 16:15 08/10/25 08:27 40 MG Dopamine HCl/ Dextrose 250 ml @ 7.481 mls/ hr Q24H IV 08/05/25 06:15 08/09/25 14:17 7.481 MLS/HR Acetaminophen 650 mg Q6HP PRN PO 08/07/25 05:15 08/07/25 05:40 650 MG Ceftriaxone Sodium 50 ml @ 100 mls/hr DAILY@09 IV 08/07/25 09:00 08/10/25 08:27 100 MLS/HR Spironolactone 25 mg DAILY PO 08/07/25 11:30 08/10/25 08:27 25 MG Furosemide 40 mg DAILY IV 08/09/25 10:00 08/10/25 08:28 40 MG Methylprednisolone Sodium Succinate 40 mg BID IV 08/09/25 10:00 08/10/25 08:27 40 MG Norepinephrine Bitartrate 250 ml @ 3.75 mls/hr Q24H IV 08/09/25 17:00 08/09/25 17:00 6.563 MLS/HR Docusate Sodium 100 mg HS PO 08/09/25 22:00 08/09/25 21:56 100 MG Laboratory Results Laboratory Tests 08/10/25 03:37 Chemistry Test 08/10/25 03:37 Albumin 3.7 g/dL (3.2-4.8) Calcium Level 9.0 mg/dL (8.7-10.4) Total Protein 6.6 g/dL (5.7-8.2) LFT Test 08/10/25 03:37 Alanine Aminotransferase (ALT) 58 U/L (7-40) H Alkaline Phosphatase 63 U/L (46-116) Aspartate Amino Transferase (AST) 34 U/L (13-40) Total Bilirubin 0.4 mg/dL (0.2-1.0) Urinalysis Test 08/04/25 19:59 08/08/25 14:34 08/08/25 14:35 08/09/25 09:00 Urine Hyaline Casts Few /lpf (0 - 2) Urine Sperm Present /hpf (None Seen) Urine Protein/Creatinine Ratio 0.38 Urine Total Protein 32.2 mg/dL (1-14) H Urine Creatinine 84.63 mg/dL (30.0-125.0) Urine Sodium 32 mmol/L (40-220) L Urine Color Light-yellow (Yellow) Urine Clarity Clear (Clear) Urine pH 7.0 (5.0-9.0) Urine Specific [place] 1.014 (1.001-1.035) Urine Protein Negative (Negative) Urine Ketones Negative (Negative) Urine Blood Negative /uL (Negative) Urine Nitrite Negative (Negative) Urine Bilirubin Negative (Negative) Urine Urobilinogen Normal mg/dL (Negative) Urine Leukocyte Esterase Negative /uL (Negative) Urine RBC <1 /hpf (0 - 3) Urine Microscopic WBC 1 /HPF (0-3) Urine Squamous Epithelial Cells None seen /hpf (<5) Urine Bacteria None seen /hpf (None Seen) Urine Glucose Normal mg/dL (Normal) Microbiology Microbiology Date/Time Source Procedure Growth Status 08/08/25 17:37 Nose MRSA Screen - Final Complete 08/07/25 07:15 Blood Blood Culture - Preliminary NO GROWTH AFTER 72 HOURS OF INCUBATION. Resulted Labs and/or images reviewed: Labs reviewed by me, Image(s) reviewed by me Assessment/Plan Assessment/Plan Impression: -NSTEMI type 2 -myocarditis -transaminitis -cardiogenic shock Plan: Events: Patient off norepinephrine. Currently on dopamine drip. Recheck CRP. Check ASIA -discussed case with Cardiology. Rheumatology consultation placed -continue Solu-Medrol 40 mg p.o. b.i.d. -given improvement with hemodynamic status, hold transferred to [facility] Critical care time spent with patient discussing and formulating plan of care: 40 minutes. This does not include time spent performing procedures. This medical document was created using an electronic medical record system with [employer] dictation system. Although this document has been carefully reviewed, there may still be some phonetic and typographical errors. These areas are purely typographical due to imperfections of the software programs, and do not reflect any compromise in the patient's medical care. Plan discussed with: Patient, Other (RN) My Orders Orders - MAGED LEE NP Procedure Category Date Status Time Methylprednisolone PHA 08/09/25 In Process Sod Succ (Solu Medrol 10:00 Cardiac DIET 08/10/25 Transmitted Diet-2gna,Lofat,Lochol Breakfast Docusate Sodium PHA 08/09/25 In Process Capsule (Colace 22:00 [place]; Comprehensive LAB 08/10/25 Logged Panel 08:03 * Rheumatology Consult CONS 08/10/25 Transmitted Date of Service: Aug 10, 2025 Billing Provider: MAGED LEE NP Common Visit Codes: [id number] CARE 30-74 MIN MAGED LEE NP Aug 10, 2025 09:12
[2025-08-10] MEDS: NOREPINEPHRINE 8 MG/250ML KIT 250 ML IV SCH (12:30)
--- NOTE | 2025-08-10 13:01 | DVHPN2 ---
Progress Note - Dictate Date Seen: Aug 10, 2025 Medical Necessity Reason Pt with a Central, PICC or Fol: Yes The following are medically ne: Central Line vital signs Vital Sign Date Time Temp Pulse Resp B/P (MAP) Pulse Ox O2 Delivery O2 Flow Rate FiO2 08/10/25 12:17 81/38 08/10/25 12:15 71 14 95 08/10/25 12:00 Room Air* 0 21 08/10/25 12:00 98.3 98.3 Total Intake and Output 08/09/25 08/09/25 08/10/25 15:00 23:00 07:00 Intake Total 159.848 ml 559.848 ml 460.928 ml Output Total 2000 ml 1690 ml Balance 159.848 ml -1440.152 ml -1229.072 ml medications Current Medications Medications Dose Ordered Sig/Luan Route Start Time Stop Time Status Last Admin Dose Admin Aspirin 81 mg DAILY PO 08/05/25 10:00 08/10/25 08:27 81 MG Atorvastatin Calcium 40 mg HS PO 08/04/25 22:00 08/09/25 21:56 40 MG Ondansetron HCl 4 mg Q4HP PRN IV 08/04/25 15:30 08/06/25 02:12 4 MG Morphine Sulfate 2 mg Q30M PRN IV 08/04/25 15:30 Pantoprazole Sodium 40 mg DAILY IV 08/04/25 16:15 08/10/25 08:27 40 MG Dopamine HCl/ Dextrose 250 ml @ 7.481 mls/ hr Q24H IV 08/05/25 06:15 08/09/25 14:17 7.481 MLS/HR Acetaminophen 650 mg Q6HP PRN PO 08/07/25 05:15 08/07/25 05:40 650 MG Ceftriaxone Sodium 50 ml @ 100 mls/hr DAILY@09 IV 08/07/25 09:00 08/10/25 08:27 100 MLS/HR Spironolactone 25 mg DAILY PO 08/07/25 11:30 08/10/25 08:27 25 MG Furosemide 40 mg DAILY IV 08/09/25 10:00 08/10/25 08:28 40 MG Methylprednisolone Sodium Succinate 40 mg BID IV 08/09/25 10:00 08/10/25 08:27 40 MG Docusate Sodium 100 mg HS PO 08/09/25 22:00 08/09/25 21:56 100 MG Norepinephrine Bitartrate 250 ml @ 3.75 mls/hr Q24H IV 08/10/25 12:30 laboratory and microbiology Laboratory Tests 08/10/25 03:37 Test 08/10/25 03:37 Range/Units Serum Glucose 112 H 74-106 mg/dL Assessment/Plan myocarditis atelectases elevated troponins cardiogenic shock pt seen and examined on ICU events none on room air remains on pressors labs and imaging studies reviewed cont levophed and dopamine titrate to MAP above 65 mm Hg suppl 02 as needed sats above 92% incent sp diurese monitor lytes replace K and Mag otherwise management deferred to cardiology dvt proph crit care time 35 min Dietary Evaluation Review Comments: Monitor PO intke and lab values Expected Outcomes/Goals: Follow a Cardiac Diet Plan discussed with: Other PASQUALE CARMONA MD Aug 10, 2025 13:01
[2025-08-11] VITALS (79 sets, daily range): BP systolic 76–115; BP diastolic 34–72; PULSE 52–87; RESP 12–23; TEMP 97.5–98; O2SAT 92–100
[2025-08-11 03:55] LABS: Hematocrit 38.2 % (41.0-53.0); Hemoglobin 12.6 g/dL (13.5-17.5); Mean Corpuscular Hemoglobin 27.5 pg (28.0-32.0); Mean Corpuscular Volume 83.6 fL (80.0-100.0); Nucleated Red Blood Cells % 0.1 %
[2025-08-11 04:26] LABS: Albumin 3.6 g/dL (3.2-4.8); Alkaline Phosphatase 64 U/L (46-116); Anion Gap 9 (5-15); BUN/Creatinine Ratio 26.0 (10.0-20.0); Bilirubin, Total 0.4 mg/dL (0.2-1.0); Calcium 8.9 mg/dL (8.7-10.4); Carbon Dioxide 30 mmol/L (20-31); Chloride 102 mmol/L (98-107); Potassium 3.8 mmol/L (3.5-5.1); Sodium 141 mmol/L (136-145); Total Protein 6.6 g/dL (5.7-8.2)
[2025-08-11 04:35] LABS: Alanine Aminotransferase 49 U/L (7-40); Blood Urea Nitrogen 26 mg/dL (9-23); Glucose 125 mg/dL (74-106)
--- NOTE | 2025-08-11 09:15 | DVHPN2 ---
Subjective Patient denies any symptoms at this time. Reviewed: Care Plan, Labs, Medications, Previous Orders, Radiology Changes from previous H/P or p: No Changes General: Per HPI Cardiovascular: Chest Pain Gastrointestinal: Nausea, Vomiting Objective Vitals Vital Signs Date Time Temp Pulse Resp B/P (MAP) Pulse Ox O2 Delivery O2 Flow Rate FiO2 08/11/25 06:45 62 15 98/57 (71) 96 08/11/25 06:00 Room Air* 0 21 08/11/25 04:00 97.8 97.8 Intake/Output Intake and Output 08/11/25 07:00 Intake Total 617.474 ml Output Total 3175 ml Balance -2557.526 ml Intake Oral 480 ml IV Total 137.474 ml Output Urine Total 3175 ml # Bowel Movements 1 General Appearance: Alert, Oriented X3, Cooperative HEENT: Atraumatic, PERRLA Lungs: Clear to auscultation, Normal air movement Cardiovascular: Regular rate, Normal S1, Normal S2 Abdomen: Normal bowel sounds, Soft, No tenderness, No hepatospenomegaly Genitourinary: No Apparent Abnormalities Neuro: Normal gait, Normal speech Skin: Dry, Intact Psych/Mental Status: Mental status NL, Mood NL Medications Current Medications Medications Dose Ordered Sig/Luan Route Start Time Stop Time Status Last Admin Dose Admin Aspirin 81 mg DAILY PO 08/05/25 10:00 08/10/25 08:27 81 MG Atorvastatin Calcium 40 mg HS PO 08/04/25 22:00 08/10/25 21:43 40 MG Ondansetron HCl 4 mg Q4HP PRN IV 08/04/25 15:30 08/06/25 02:12 4 MG Morphine Sulfate 2 mg Q30M PRN IV 08/04/25 15:30 Pantoprazole Sodium 40 mg DAILY IV 08/04/25 16:15 08/10/25 08:27 40 MG Dopamine HCl/ Dextrose 250 ml @ 7.481 mls/ hr Q24H IV 08/05/25 06:15 08/09/25 14:17 7.481 MLS/HR Acetaminophen 650 mg Q6HP PRN PO 08/07/25 05:15 08/07/25 05:40 650 MG Furosemide 40 mg DAILY IV 08/09/25 10:00 08/10/25 08:28 40 MG Methylprednisolone Sodium Succinate 40 mg BID IV 08/09/25 10:00 08/10/25 21:43 40 MG Docusate Sodium 100 mg HS PO 08/09/25 22:00 08/10/25 21:43 100 MG Norepinephrine Bitartrate 250 ml @ 3.75 mls/hr Q24H IV 08/10/25 12:30 08/10/25 12:30 3.75 MLS/HR Laboratory Results Laboratory Tests 08/11/25 02:52 Chemistry Test 08/11/25 02:52 Albumin 3.6 g/dL (3.2-4.8) Calcium Level 8.9 mg/dL (8.7-10.4) Total Protein 6.6 g/dL (5.7-8.2) LFT Test 08/11/25 02:52 Alanine Aminotransferase (ALT) 49 U/L (7-40) H Alkaline Phosphatase 64 U/L (46-116) Aspartate Amino Transferase (AST) 23 U/L (13-40) Total Bilirubin 0.4 mg/dL (0.2-1.0) Urinalysis Test 08/04/25 19:59 08/08/25 14:34 08/08/25 14:35 08/09/25 09:00 Urine Hyaline Casts Few /lpf (0 - 2) Urine Sperm Present /hpf (None Seen) Urine Protein/Creatinine Ratio 0.38 Urine Total Protein 32.2 mg/dL (1-14) H Urine Creatinine 84.63 mg/dL (30.0-125.0) Urine Sodium 32 mmol/L (40-220) L Urine Color Light-yellow (Yellow) Urine Clarity Clear (Clear) Urine pH 7.0 (5.0-9.0) Urine Specific [place] 1.014 (1.001-1.035) Urine Protein Negative (Negative) Urine Ketones Negative (Negative) Urine Blood Negative /uL (Negative) Urine Nitrite Negative (Negative) Urine Bilirubin Negative (Negative) Urine Urobilinogen Normal mg/dL (Negative) Urine Leukocyte Esterase Negative /uL (Negative) Urine RBC <1 /hpf (0 - 3) Urine Microscopic WBC 1 /HPF (0-3) Urine Squamous Epithelial Cells None seen /hpf (<5) Urine Bacteria None seen /hpf (None Seen) Urine Glucose Normal mg/dL (Normal) Microbiology Microbiology Date/Time Source Procedure Growth Status 08/09/25 09:00 Voided Urine Urine Culture - Final Complete 08/08/25 17:37 Nose MRSA Screen - Final Complete 08/07/25 07:15 Blood Blood Culture - Preliminary NO GROWTH AFTER 72 HOURS OF INCUBATION. Resulted Labs and/or images reviewed: Labs reviewed by me, Image(s) reviewed by me Assessment/Plan Assessment/Plan Impression: -NSTEMI type 2 -myocarditis -transaminitis -cardiogenic shock Plan: Events: Patient now on 1 microgram/minute norepinephrine. Discussed case with Rheumatology . Inflammatory markers improving -stop spironolactone -cardiology consultation: Recommend patient is reviewed -continue Solu-Medrol 40 mg p.o. b.i.d. -[facility] Critical care time spent with patient discussing and formulating plan of care: 40 minutes. This does not include time spent performing procedures. This medical document was created using an electronic medical record system with [employer] dictation system. Although this document has been carefully reviewed, there may still be some phonetic and typographical errors. These areas are purely typographical due to imperfections of the software programs, and do not reflect any compromise in the patient's medical care. Plan discussed with: Patient, Other (RN) Date of Service: Aug 11, 2025 Billing Provider: MAGED LEE NP Common Visit Codes: [id number] CARE 30-74 MIN MAGED LEE NP Aug 11, 2025 09:15
[2025-08-11 11:07] LABS: Anti-Centromere B Antibody <0.2 AI (0.0-0.9); Anti-Jo-1 Antibody <0.2 AI (0.0-0.9); Anti-dsDNA Antibody <1 IU/mL (0-9); Antichromatin Antibody <0.2 AI (0.0-0.9); Antiscleroderma-70 Antibody <0.2 AI (0.0-0.9); Sjogren's Anti-SS-A Antibody <0.2 AI (0.0-0.9); Sjogren's Anti-SS-B Antibody <0.2 AI (0.0-0.9)
--- NOTE | 2025-08-11 23:17 | DVHPN2 ---
Subjective DOS: 08/11/2025 Patient seen and examined at bedside. Breathing comfortably on room air. Overnight events reviewed. Reviewed: Care Plan, Labs, Medications, Previous Orders, Radiology Changes from previous H/P or p: No Changes General: Per HPI Cardiovascular: Chest Pain Gastrointestinal: Nausea, Vomiting Objective Vitals Vital Signs Date Time Temp Pulse Resp B/P (MAP) Pulse Ox O2 Delivery O2 Flow Rate FiO2 08/11/25 18:30 67 16 96/52 (67) 95 08/11/25 18:00 Room Air* 0 21 08/11/25 16:00 97.8 97.8 Intake/Output Intake and Output 08/11/25 07:00 Intake Total 619.349 ml Output Total 3175 ml Balance -2555.651 ml Intake Oral 480 ml IV Total 139.349 ml Output Urine Total 3175 ml # Bowel Movements 1 Exam Gen.: Patient lying in bed in no apparent distress. Breathing on room air. Head: Normocephalic, atraumatic. Eyes: EOMI/PERRLA. Ears: Normal hearing. Normal anatomy. Neck/trachea: Trachea midline, supple. Nose: Normal external anatomy. Mouth: Moist mucous membranes. Chest: Decreased air entry bilaterally. No wheezing or rhonchi. Cardiovascular: Positive S1, positive S2. Regular rate and rhythm. Abdomen: Positive bowel sounds in all 4 quadrants. Soft, non-tender, non- distended. : Deferred. Rectal: Deferred. Skin: Warm, dry. Intact. Extremities: 2+ radial pulses bilaterally. No lower extremity edema. Neuro: Awake, alert, oriented x3. No gross motor or sensory deficits. Cranial nerves II through XII intact. Gait not assessed. General Appearance: Alert, Oriented X3, Cooperative HEENT: Atraumatic, PERRLA Lungs: Clear to auscultation, Normal air movement Cardiovascular: Regular rate, Normal S1, Normal S2 Abdomen: Normal bowel sounds, Soft, No tenderness, No hepatospenomegaly Genitourinary: No Apparent Abnormalities Neuro: Normal gait, Normal speech Skin: Dry, Intact Psych/Mental Status: Mental status NL, Mood NL Medications Current Medications Medications Dose Ordered Sig/Luan Route Start Time Stop Time Status Last Admin Dose Admin Aspirin 81 mg DAILY PO 08/05/25 10:00 08/11/25 10:02 81 MG Atorvastatin Calcium 40 mg HS PO 08/04/25 22:00 08/11/25 20:26 40 MG Ondansetron HCl 4 mg Q4HP PRN IV 08/04/25 15:30 08/06/25 02:12 4 MG Morphine Sulfate 2 mg Q30M PRN IV 08/04/25 15:30 Pantoprazole Sodium 40 mg DAILY IV 08/04/25 16:15 08/11/25 10:01 40 MG Acetaminophen 650 mg Q6HP PRN PO 08/07/25 05:15 08/07/25 05:40 650 MG Methylprednisolone Sodium Succinate 40 mg BID IV 08/09/25 10:00 08/11/25 20:27 40 MG Docusate Sodium 100 mg HS PO 08/09/25 22:00 08/11/25 20:27 100 MG Norepinephrine Bitartrate 250 ml @ 3.75 mls/hr Q24H IV 08/10/25 12:30 08/10/25 12:30 3.75 MLS/HR Laboratory Results Laboratory Tests 08/11/25 02:52 Chemistry Test 08/11/25 02:52 Albumin 3.6 g/dL (3.2-4.8) Calcium Level 8.9 mg/dL (8.7-10.4) Total Protein 6.6 g/dL (5.7-8.2) LFT Test 08/11/25 02:52 Alanine Aminotransferase (ALT) 49 U/L (7-40) H Alkaline Phosphatase 64 U/L (46-116) Aspartate Amino Transferase (AST) 23 U/L (13-40) Total Bilirubin 0.4 mg/dL (0.2-1.0) Urinalysis Test 08/04/25 19:59 08/08/25 14:34 08/08/25 14:35 08/09/25 09:00 Urine Hyaline Casts Few /lpf (0 - 2) Urine Sperm Present /hpf (None Seen) Urine Protein/Creatinine Ratio 0.38 Urine Total Protein 32.2 mg/dL (1-14) H Urine Creatinine 84.63 mg/dL (30.0-125.0) Urine Sodium 32 mmol/L (40-220) L Urine Color Light-yellow (Yellow) Urine Clarity Clear (Clear) Urine pH 7.0 (5.0-9.0) Urine Specific [place] 1.014 (1.001-1.035) Urine Protein Negative (Negative) Urine Ketones Negative (Negative) Urine Blood Negative /uL (Negative) Urine Nitrite Negative (Negative) Urine Bilirubin Negative (Negative) Urine Urobilinogen Normal mg/dL (Negative) Urine Leukocyte Esterase Negative /uL (Negative) Urine RBC <1 /hpf (0 - 3) Urine Microscopic WBC 1 /HPF (0-3) Urine Squamous Epithelial Cells None seen /hpf (<5) Urine Bacteria None seen /hpf (None Seen) Urine Glucose Normal mg/dL (Normal) Microbiology Microbiology Date/Time Source Procedure Growth Status 08/09/25 09:00 Voided Urine Urine Culture - Final Complete 08/08/25 17:37 Nose MRSA Screen - Final Complete 08/07/25 07:15 Blood Blood Culture - Preliminary NO GROWTH AFTER 72 HOURS OF INCUBATION. Resulted Assessment/Plan Assessment/Plan Impression: Myocarditis Atelectasis Elevated troponins Cardiogenic shock Plan: On room air Supplemental oxygen PRN Titrate to keep O2 sats above 92%. Off Levophed at 11 AM. Off dopamine at 11 AM. Follow up Cardiology recs Completed antibiotics IV steroids for pericarditis Incentive spirometry for atelectasis Rheumatology was consulted - follow up recommendations Monitor renal function. Monitor electrolytes. Supplement as necessary. Monitor ins and outs. DVT prophylaxis. Prognosis: Poor given patient's multiple co-morbidities. Condition: Critical Rest of plan per hospitalist and other consultants. A total of 35 minutes of critical care time was spent reviewing the patient record, examining the patient, making a diagnostic and therapeutic plan, discussing this plan with the medical personnel, following up on diagnostic studies and following the patient for clinical stability excluding any and all procedures. At least 50% of this time was spent in direct, [id number] contact. Thank you, ANGEL Richardson, for allowing me to participate in this patient's care. Further recommendations will depend on the patient's clinical course. Please do not hesitate to contact me if you have any questions or concerns. This medical document was created using an electronic medical record system with [employer] system. Although these documentations are being carefully reviewed, there may still be some phonetic and typographical changes. The errors are purely typographical, due to imperfection on the software program, and do not reflect any compromise in the patient's medical care. Plan discussed with: Other (RN) Visit Coding Pulmonary Billing Provider: SIMEON GIRALDO MD Date of Service if different f: Aug 11, 2025 Common Visit Codes: [id number] INP/OBS CARE(HIGH), [id number] CARE 30-74 MIN SIMEON GIRALDO MD Aug 11, 2025 23:16
[2025-08-12] VITALS (8 sets, daily range): BP systolic 95–103; BP diastolic 49–64; PULSE 53–75; RESP 15–18; TEMP 97.7–98.4; O2SAT 96–99
[2025-08-12 05:38] LABS: Anion Gap 7 (5-15); Carbon Dioxide 28 mmol/L (20-31); Chloride 105 mmol/L (98-107); Potassium 4.7 mmol/L (3.5-5.1); Sodium 140 mmol/L (136-145)
[2025-08-12 05:40] LABS: Calcium 9.2 mg/dL (8.7-10.4)
[2025-08-12 05:44] LABS: BUN/Creatinine Ratio 22.0 (10.0-20.0); Blood Urea Nitrogen 20 mg/dL (9-23); Glucose 105 mg/dL (74-106)
--- NOTE | 2025-08-12 05:56 | DVH ---
CHEST RADIOGRAPH Indication: chf Technique: Single frontal view of the chest was obtained COMPARISON: XY CHEST XRAY 1 VIEW on DOS: 08/08/25, XY CHEST PORTABLE on DOS: 08/04/25 FINDINGS: Lines and Tubes: None Lungs: Clear Pleura: No effusion. No pneumothorax. Cardiomediastinal contours: Unremarkable Bones: Unremarkable IMPRESSION: 1. No acute disease.
[2025-08-12 10:03] LABS: Urine Protein, UAD Negative (Negative)
[2025-08-12 10:20] LABS: Protein, Urine 17.3 mg/dL (1-14)
--- NOTE | 2025-08-12 10:46 | DVHPN2 ---
Subjective Patient denies any symptoms at this time. Reviewed: Care Plan, Labs, Medications, Previous Orders, Radiology Changes from previous H/P or p: No Changes General: Per HPI Cardiovascular: Chest Pain Gastrointestinal: Nausea, Vomiting Objective Vitals Vital Signs Date Time Temp Pulse Resp B/P (MAP) Pulse Ox O2 Delivery O2 Flow Rate FiO2 08/12/25 08:51 98.4 65 16 96/51 (66) 97 98.4 08/12/25 08:00 Room Air* 0 21 Intake/Output Intake and Output 08/12/25 07:00 Intake Total 0.938 ml Output Total 1600 ml Balance -1599.062 ml Intake Oral 0 ml IV Total 0.938 ml Output Urine Total 1600 ml General Appearance: Alert, Oriented X3, Cooperative HEENT: Atraumatic, PERRLA Lungs: Clear to auscultation, Normal air movement Cardiovascular: Regular rate, Normal S1, Normal S2 Abdomen: Normal bowel sounds, Soft, No tenderness, No hepatospenomegaly Genitourinary: No Apparent Abnormalities Neuro: Normal gait, Normal speech Skin: Dry, Intact Psych/Mental Status: Mental status NL, Mood NL Medications Current Medications Medications Dose Ordered Sig/Luan Route Start Time Stop Time Status Last Admin Dose Admin Aspirin 81 mg DAILY PO 08/05/25 10:00 08/12/25 09:04 81 MG Atorvastatin Calcium 40 mg HS PO 08/04/25 22:00 08/11/25 20:26 40 MG Ondansetron HCl 4 mg Q4HP PRN IV 08/04/25 15:30 08/06/25 02:12 4 MG Morphine Sulfate 2 mg Q30M PRN IV 08/04/25 15:30 Pantoprazole Sodium 40 mg DAILY IV 08/04/25 16:15 08/12/25 09:04 40 MG Acetaminophen 650 mg Q6HP PRN PO 08/07/25 05:15 08/07/25 05:40 650 MG Methylprednisolone Sodium Succinate 40 mg BID IV 08/09/25 10:00 08/12/25 09:04 40 MG Docusate Sodium 100 mg HS PO 08/09/25 22:00 08/11/25 20:27 100 MG Norepinephrine Bitartrate 250 ml @ 3.75 mls/hr Q24H IV 08/10/25 12:30 08/10/25 12:30 3.75 MLS/HR Laboratory Results Laboratory Tests 08/11/25 02:52 08/12/25 04:54 Chemistry Test 08/12/25 04:54 Calcium Level 9.2 mg/dL (8.7-10.4) Urinalysis Test 08/04/25 19:59 08/08/25 14:35 08/12/25 09:30 Urine Hyaline Casts Few /lpf (0 - 2) Urine Sperm Present /hpf (None Seen) Urine Sodium 32 mmol/L (40-220) L Urine Color Yellow (Yellow) Urine Clarity Clear (Clear) Urine pH 6.0 (5.0-9.0) Urine Specific [place] 1.027 (1.001-1.035) Urine Protein Negative (Negative) Urine Ketones Negative (Negative) Urine Blood Negative /uL (Negative) Urine Nitrite Negative (Negative) Urine Bilirubin Negative (Negative) Urine Urobilinogen Normal mg/dL (Negative) Urine Leukocyte Esterase Negative /uL (Negative) Urine RBC 1 /hpf (0 - 3) Urine Microscopic WBC < 1 /HPF (0-3) Urine Squamous Epithelial Cells None seen /hpf (<5) Urine Bacteria None seen /hpf (None Seen) Urine Mucus Few (None Seen) Urine Creatinine 142.47 mg/dL (30.0-125.0) H Urine Protein/Creatinine Ratio 0.12 Urine Glucose Normal mg/dL (Normal) Urine Total Protein 17.3 mg/dL (1-14) H Microbiology Microbiology Date/Time Source Procedure Growth Status 08/09/25 09:00 Voided Urine Urine Culture - Final Complete 08/08/25 17:37 Nose MRSA Screen - Final Complete 08/07/25 07:15 Blood Blood Culture - Final NO GROWTH AFTER 5 DAYS OF INCUBATION. Complete Labs and/or images reviewed: Labs reviewed by me, Image(s) reviewed by me Assessment/Plan Assessment/Plan Impression: -NSTEMI type 2 -myocarditis -transaminitis -cardiogenic shock Plan: Events: Patient hemodynamically stable. Patient transferred to telemetry floor. Discussed case with Cardiology and Rheumatology. Discussed plan of care with the patient. -change Solu-Medrol to prednisone -cardiology consultation -rheumatology consultation -DC planning once cleared by Cardiology Total time spent with patient discussing and formulating plan of care: 35 minutes. This medical document was created using an electronic medical record system with Dragon computerized dictation system. Although this document has been carefully reviewed, there may still be some phonetic and typographical errors. These areas are purely typographical due to imperfections of the software programs, and do not reflect any compromise in the patient's medical care. Plan discussed with: Patient, Other (RN) My Orders Orders - MAGED LEE NP Procedure Category Date Status Time Transfer Orders XFER 08/11/25 Transmitted 16:01 Prednisone Tablet PHA 08/13/25 Verified 10:00 Basic Metabolic Panel LAB 08/13/25 Verified 04:00 Complete Blood Count LAB 08/13/25 Verified 04:00 Date of Service: Aug 12, 2025 Billing Provider: MAGED LEE NP Common Visit Codes: [id number] INP/OBS CARE(HIGH) MAGED LEE NP Aug 12, 2025 10:46
[2025-08-12 14:07] LABS: Anti-Nuclear Antibody Direct Negative (Negative)
--- NOTE | 2025-08-12 21:50 | DVHINCON2 ---
Date of service: Aug 11, 2025 Referring Physician Ba Richardson Reason for Consultation +RF History of Present Illness 39 y/o AAF with no significant medical history admitted for acute onset chest pain and crushing pressure exacerbated with playing football. Has associated low grade fevers. EKG showed ST elevations. Cardiac workup negative for CAD. Troponin was noted to be significantly elevated along with MARIO. Patient was admitted to ICU due to cardiogenic shock requiring pressors. He was noted to have a low RF with negative DAYNE and RUTH panel. ESR, CRP were mildly elevated and improved after addition of systemic steroids for supportive care. Infectious workup negative to date. He denies systemic symptoms like joint pain, stiffness, rashes, oral/nasal ulcers, unintentional weight loss, hx of VTE, CVA, prior OR. No known family hx of autoimmune diseases. He denies illicit drug use. 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 Allergies: Coded Allergies: NO KNOWN ALLERGIES (Unverified , 08/04/25) Current Medications Current Medications Medications (Trade) Dose Ordered Sig/Luan Route PRN Reason Start Time Stop Time Status Last Admin Prednisone 40 mg DAILY PO 08/13/25 10:00 Review of Systems see HPI Vital Signs Vital Signs Date Time Temp Pulse Resp B/P (MAP) Pulse Ox O2 Delivery O2 Flow Rate FiO2 08/12/25 20:53 97.8 70 18 97/51 (66) 96 97.8 08/12/25 08:00 Room Air* 0 21 Physical Exam telehealth visit Labs/Diagnostic Data Labs Test 08/12/25 09:30 08/12/25 04:54 08/11/25 02:52 08/10/25 23:05 Range/Units Urine Color Yellow Yellow Urine Clarity Clear Clear Urine pH 6.0 5.0-9.0 Urine Specific [place] 1.027 1.001-1.035 Urine Protein Negative Negative Urine Ketones Negative Negative Urine Blood Negative Negative /uL Urine Nitrite Negative Negative Urine Bilirubin Negative Negative Urine Urobilinogen Normal Negative mg/dL Urine Leukocyte Esterase Negative Negative /uL Urine RBC 1 0 - 3 /hpf Urine Microscopic WBC < 1 0-3 /HPF Urine Squamous Epithelial Cells None seen <5 /hpf Urine Bacteria None seen None Seen /hpf Urine Mucus Few None Seen Urine Creatinine 142.47 H 30.0-125.0 mg/dL Urine Protein/Creatinine Ratio 0.12 Urine Glucose Normal Normal mg/dL Urine Total Protein 17.3 H 1-14 mg/dL Sodium Level 140 136-145 mmol/L Potassium Level 4.7 3.5-5.1 mmol/L Chloride Level 105 98-107 mmol/L Carbon Dioxide Level 28 20-31 mmol/L Anion Gap 7 5-15 Blood Urea Nitrogen 20 9-23 mg/dL Creatinine 0.91 0.700-1.30 mg/dL Glomerular Filtration Rate Calc 111 >90 mL/min BUN/Creatinine Ratio 22.0 H 10.0-20.0 Serum Glucose 105 74-106 mg/dL Calcium Level 9.2 8.7-10.4 mg/dL White Blood Count 9.9 # 4.4-10.8 10^3/uL Red Blood Count 4.57 4.5-5.90 10^6/uL Hemoglobin 12.6 L 13.5-17.5 g/dL Hematocrit 38.2 L 41.0-53.0 % Mean Corpuscular Volume 83.6 80.0-100.0 fL Mean Corpuscular Hemoglobin 27.5 L 28.0-32.0 pg Mean Corpuscular Hemoglobin Concent 32.9 32.0-36.0 g/dL Red Cell Distribution Width 13.5 11.8-14.3 % Platelet Count 307 140-450 10^3/uL Mean Platelet Volume 8.7 6.9-10.8 fL Neutrophils (%) (Auto) 90.6 H 37.0-80.0 % Lymphocytes (%) (Auto) 5.7 L 10.0-50.0 % Monocytes (%) (Auto) 3.6 0.0-12.0 % Eosinophils (%) (Auto) 0.0 0.0-7.0 % Basophils (%) (Auto) 0.1 0.0-2.0 % Neutrophils # (Auto) 9.0 H 1.6-8.6 10 ^3/uL Lymphocytes # (Auto) 0.6 0.4-5.4 10 ^3/uL Monocytes # (Auto) 0.4 0-1.3 10 ^3/uL Eosinophils # (Auto) 0 0-0.8 10 ^3/uL Basophils # (Auto) 0 0-0.2 10 ^3/uL Nucleated Red Blood Cells 0.1 % Total Bilirubin 0.4 0.2-1.0 mg/dL Aspartate Amino Transferase (AST) 23 13-40 U/L Alanine Aminotransferase (ALT) 49 H 7-40 U/L Alkaline Phosphatase 64 46-116 U/L Total Protein 6.6 5.7-8.2 g/dL Albumin 3.6 3.2-4.8 g/dL Erythrocyte Sedimentation Rate 15 0-20 mm/hr C-Reactive Protein High Sensitivity 2.11 H <1.0 mg/dL Anti-Nuclear Antibody Screen Negative Negative Complement C3 158 82-167 mg/dL Complement C4 31 12-38 mg/dL Test 08/10/25 09:51 08/09/25 02:52 08/08/25 14:35 08/08/25 10:52 Range/Units Anti-Nuclear Antibody Comment Comment . REG-1 Antibody <0.2 0.0-0.9 AI SS-A/Ro Antibody <0.2 0.0-0.9 AI SS-B/La Antibody <0.2 0.0-0.9 AI Sm Antibody <0.2 0.0-0.9 AI WET WASH ASSEMBLER Antibody <0.2 0.0-0.9 AI Scl-70 (Scleroderma) Antibody <0.2 0.0-0.9 AI Anti-Double Strand DNA Antibody <1 0-9 IU/mL Chromatin Antibody <0.2 0.0-0.9 AI Centromere B Antibody <0.2 0.0-0.9 AI Magnesium Level 2.3 1.6-2.6 mg/dL Urine Sodium 32 L 40-220 mmol/L Rheumatoid Factor 22.7 H <14.0 IU/mL Cytomegalovirus IgG Antibody <0.60 0.00-0.59 U/mL Cytomegalovirus IgM Antibody <30.0 0.0-29.9 AU/mL Test 08/07/25 03:00 08/06/25 12:27 08/05/25 02:35 08/04/25 22:40 Range/Units Lactic Acid Level 1.7 0.4-2.0 mmol/L Blood Gas Specimen Type Venous Blood Gas Sample Site Central line Blood Gas Patient Temperature 37.0 Arterial Blood Date Drawn [id number] [place] Test N/a Venous Blood pH 7.386 7.320-7.430 Venous Blood pCO2 at Patient Temp 43.5 38.0-54.0 mmHg Venous Blood pO2 at Patient Temp < 36.5 23.0-48.0 mmHg Venous Blood HCO3 25.5 22.0-29.0 mmol/L Venous Blood Base Excess 0.2 -2.0-3.0 mmol/L Blood Gas Modality Room air FiO2 % 21.0 Specimen Drawn By javid Forrest Troponin I High Sensitivity 48245 *H </=54 ng/L Triglycerides Level 67 < 150 mg/dL Cholesterol Level 118 < 200 mg/dL LDL Cholesterol 75 < 100 mg/dL HDL Cholesterol 32 L 40-59 mg/dL Prothrombin Time 11.9 H 9.3-11.8 sec Prothrombin Time INR 1.14 0.9-1.15 Activated Partial Thromboplast Time 30.6 24.5-34.5 SEC Test 08/04/25 19:59 08/04/25 14:55 08/04/25 14:45 08/04/25 14:11 Range/Units Urine Hyaline Casts Few 0 - 2 /lpf Urine Sperm Present None Seen /hpf Urine Opiates Screen Neg NEGATIVE Urine Fentanyl Screen Neg NEGATIVE Urine Barbiturates Screen Neg NEGATIVE Urine Phencyclidine Screen Neg NEGATIVE Urine Amphetamines Screen Neg NEGATIVE Urine Benzodiazepines Screen Neg NEGATIVE Urine Cocaine Screen Neg NEGATIVE Urine Cannabinoids Screen Neg NEGATIVE SARS-CoV-2 Antigen (Rapid) Negative NEGATIVE Influenza Type A Antigen Negative Negative Influenza Type B Antigen Negative Negative Hemoglobin A1c 5.4 <5.7 % A1C Lactate Dehydrogenase 259 H 120-246 U/L B-Type Natriuretic Peptide 123.49 0-100 pg/mL Thyroid Stimulating Hormone (TSH) 1.69 0.55-4.78 uIU/mL Free Thyroxine (T4) Calculated 0.86 L 0.89-1.76 ng/dL Microbiology Date/Time Source Procedure Growth Status 08/09/25 09:00 Voided Urine Urine Culture - Final Complete 08/08/25 17:37 Nose MRSA Screen - Final Complete 08/07/25 07:15 Blood Blood Culture - Final NO GROWTH AFTER 5 DAYS OF INCUBATION. Complete Problems(with codes): (1) Acute myopericarditis (2) NSTEMI (non-ST elevated myocardial infarction) (3) Hypotension Plan/Recommendation 39 y/o M admitted with acute myopericarditis with cardiogenic shock improving on systemic steroids. +RF low titer can be an acute phase reactant and also seen in acute viral infections. DAYNE, RUTH negative. IILA level pending. Given he responded to systemic steroids, okay to continue for inflammatory component with a taper over 3-4 weeks however current suspicion for an autoimmune cause requiring moth exterminator therapy is low. I did advise that if his chest pain returns during prednisone taper or he continues to have intermittent low grade fevers he should follow up after discharge with rheumatology for further workup. Plan discussed with: Patient, Other NANO CHAVARRIA MD Aug 12, 2025 21:50
--- NOTE | 2025-08-12 23:36 | DVHPN2 ---
Subjective DOS: 08/12/2025 Patient seen and examined at bedside. Breathing comfortably on room air. Overnight events reviewed. Reviewed: Care Plan, Labs, Medications, Previous Orders, Radiology Changes from previous H/P or p: No Changes General: Per HPI Cardiovascular: Chest Pain Gastrointestinal: Nausea, Vomiting Objective Vitals Vital Signs Date Time Temp Pulse Resp B/P (MAP) Pulse Ox O2 Delivery O2 Flow Rate FiO2 08/12/25 20:53 97.8 70 18 97/51 (66) 96 97.8 08/12/25 08:00 Room Air* 0 21 Intake/Output Intake and Output 08/12/25 07:00 Intake Total 0.938 ml Output Total 1600 ml Balance -1599.062 ml Intake Oral 0 ml IV Total 0.938 ml Output Urine Total 1600 ml Exam Gen.: Patient lying in bed in no apparent distress. Breathing on room air. Head: Normocephalic, atraumatic. Eyes: EOMI/PERRLA. Ears: Normal hearing. Normal anatomy. Neck/trachea: Trachea midline, supple. Nose: Normal external anatomy. Mouth: Moist mucous membranes. Chest: Decreased air entry bilaterally. No wheezing or rhonchi. Cardiovascular: Positive S1, positive S2. Regular rate and rhythm. Abdomen: Positive bowel sounds in all 4 quadrants. Soft, non-tender, non- distended. : Deferred. Rectal: Deferred. Skin: Warm, dry. Intact. Extremities: 2+ radial pulses bilaterally. No lower extremity edema. Neuro: Awake, alert, oriented x3. No gross motor or sensory deficits. Cranial nerves II through XII intact. Gait not assessed. General Appearance: Alert, Oriented X3, Cooperative HEENT: Atraumatic, PERRLA Lungs: Clear to auscultation, Normal air movement Cardiovascular: Regular rate, Normal S1, Normal S2 Abdomen: Normal bowel sounds, Soft, No tenderness, No hepatospenomegaly Genitourinary: No Apparent Abnormalities Neuro: Normal gait, Normal speech Skin: Dry, Intact Psych/Mental Status: Mental status NL, Mood NL Medications Current Medications Medications Dose Ordered Sig/Luan Route Start Time Stop Time Status Last Admin Dose Admin Aspirin 81 mg DAILY PO 08/05/25 10:00 08/12/25 09:04 81 MG Atorvastatin Calcium 40 mg HS PO 08/04/25 22:00 08/12/25 21:55 40 MG Ondansetron HCl 4 mg Q4HP PRN IV 08/04/25 15:30 08/06/25 02:12 4 MG Morphine Sulfate 2 mg Q30M PRN IV 08/04/25 15:30 Pantoprazole Sodium 40 mg DAILY IV 08/04/25 16:15 08/12/25 09:04 40 MG Acetaminophen 650 mg Q6HP PRN PO 08/07/25 05:15 08/07/25 05:40 650 MG Docusate Sodium 100 mg HS PO 08/09/25 22:00 08/12/25 21:55 100 MG Prednisone 40 mg DAILY PO 08/13/25 10:00 Laboratory Results Laboratory Tests 08/11/25 02:52 08/12/25 04:54 Chemistry Test 08/12/25 04:54 Calcium Level 9.2 mg/dL (8.7-10.4) Urinalysis Test 08/04/25 19:59 08/08/25 14:35 08/12/25 09:30 Urine Hyaline Casts Few /lpf (0 - 2) Urine Sperm Present /hpf (None Seen) Urine Sodium 32 mmol/L (40-220) L Urine Color Yellow (Yellow) Urine Clarity Clear (Clear) Urine pH 6.0 (5.0-9.0) Urine Specific [place] 1.027 (1.001-1.035) Urine Protein Negative (Negative) Urine Ketones Negative (Negative) Urine Blood Negative /uL (Negative) Urine Nitrite Negative (Negative) Urine Bilirubin Negative (Negative) Urine Urobilinogen Normal mg/dL (Negative) Urine Leukocyte Esterase Negative /uL (Negative) Urine RBC 1 /hpf (0 - 3) Urine Microscopic WBC < 1 /HPF (0-3) Urine Squamous Epithelial Cells None seen /hpf (<5) Urine Bacteria None seen /hpf (None Seen) Urine Mucus Few (None Seen) Urine Creatinine 142.47 mg/dL (30.0-125.0) H Urine Protein/Creatinine Ratio 0.12 Urine Glucose Normal mg/dL (Normal) Urine Total Protein 17.3 mg/dL (1-14) H Microbiology Microbiology Date/Time Source Procedure Growth Status 08/09/25 09:00 Voided Urine Urine Culture - Final Complete 08/08/25 17:37 Nose MRSA Screen - Final Complete 08/07/25 07:15 Blood Blood Culture - Final NO GROWTH AFTER 5 DAYS OF INCUBATION. Complete Assessment/Plan Assessment/Plan Impression: Myocarditis Atelectasis Elevated troponins Cardiogenic shock Events: Breathing on room air Supplemental oxygen PRN No overnight events. Remains off pressors, hemodynamically stable Continue IV steroids for pericarditis Continue ASA. Incentive spirometry Pending Rheumatology consult Labs and imaging reviewed. Rest of plan as noted below. Plan: Supplemental oxygen PRN Titrate to keep O2 sats above 92%. Follow up Cardiology recs Completed antibiotics IV steroids for pericarditis Incentive spirometry for atelectasis Rheumatology consult pending- follow up recommendations Monitor renal function. Monitor electrolytes. Supplement as necessary. Monitor ins and outs. DVT prophylaxis. Prognosis: Poor given patient's multiple co-morbidities. Rest of plan per hospitalist and other consultants. Thank you, ANGEL Richardson, for allowing me to participate in this patient's care. Further recommendations will depend on the patient's clinical course. Please do not hesitate to contact me if you have any questions or concerns. This medical document was created using an electronic medical record system with [employer] dictation system. Although these documentations are being carefully reviewed, there may still be some phonetic and typographical changes. The errors are purely typographical, due to imperfection on the software program, and do not reflect any compromise in the patient's medical care. Plan discussed with: Patient, Other (DARIAN Pruett) Visit Coding Pulmonary Billing Provider: SIMEON GIRALDO MD Date of Service if different f: Aug 12, 2025 Common Visit Codes: [id number] INP/OBS CARE(HIGH) SIMEON GIRALDO MD Aug 12, 2025 23:36
[2025-08-13] VITALS (9 sets, daily range): BP systolic 92–116; BP diastolic 41–74; PULSE 58–88; RESP 16–18; TEMP 97.8–98.7; O2SAT 95–98
[2025-08-13 06:33] LABS: Hematocrit 39.8 % (41.0-53.0); Hemoglobin 12.9 g/dL (13.5-17.5); Mean Corpuscular Hemoglobin 27.4 pg (28.0-32.0); Mean Corpuscular Volume 84.2 fL (80.0-100.0); Nucleated Red Blood Cells % 0.1 %
[2025-08-13 06:47] LABS: Anion Gap 7 (5-15); Calcium 9.1 mg/dL (8.7-10.4); Carbon Dioxide 30 mmol/L (20-31); Chloride 103 mmol/L (98-107); Potassium 4.5 mmol/L (3.5-5.1); Sodium 140 mmol/L (136-145)
[2025-08-13 06:53] LABS: BUN/Creatinine Ratio 18.9 (10.0-20.0); Blood Urea Nitrogen 20 mg/dL (9-23); Glucose 83 mg/dL (74-106)
[2025-08-13] MEDS: predniSONE 20 MG TAB PO SCH (08:34)
--- NOTE | 2025-08-13 09:44 | DVHPN2 ---
Progress Note Date Seen: Aug 13, 2025 Has the PT tested + for MRSA If YES, has PT been informed?: No Medical Necessity Reason Pt with a Central, PICC or Fol: Yes Subjective Review of Systems breathing on room air. Able to sit comfortable and tolerate oral diet. Remains on systemic steroids Patient reports: Feels better Objective vital signs Vital Sign Date Time Temp Pulse Resp B/P (MAP) Pulse Ox O2 Delivery O2 Flow Rate FiO2 08/13/25 09:00 97.9 65 17 109/69 (82) 97 97.9 08/13/25 08:05 Room Air* 0 21 Total Intake and Output 08/12/25 08/12/25 08/13/25 15:00 23:00 07:00 Intake Total 1000 ml 200 ml Output Total 600 ml 200 ml Balance -600 ml 1000 ml 0 ml medications Current Medications Medications Dose Ordered Sig/Luan Route Start Time Stop Time Status Last Admin Dose Admin Aspirin 81 mg DAILY PO 08/05/25 10:00 08/13/25 08:34 81 MG Atorvastatin Calcium 40 mg HS PO 08/04/25 22:00 08/12/25 21:55 40 MG Ondansetron HCl 4 mg Q4HP PRN IV 08/04/25 15:30 08/06/25 02:12 4 MG Morphine Sulfate 2 mg Q30M PRN IV 08/04/25 15:30 Pantoprazole Sodium 40 mg DAILY IV 08/04/25 16:15 08/13/25 08:34 40 MG Acetaminophen 650 mg Q6HP PRN PO 08/07/25 05:15 08/07/25 05:40 650 MG Docusate Sodium 100 mg HS PO 08/09/25 22:00 08/12/25 21:55 100 MG Prednisone 40 mg DAILY PO 08/13/25 10:00 08/13/25 08:34 40 MG laboratory and microbiology Laboratory Tests 08/13/25 05:12 Test 08/13/25 05:12 Range/Units Serum Glucose 83 74-106 mg/dL Microbiology Date/Time Source Procedure Growth Status 08/09/25 09:00 Voided Urine Urine Culture - Final Complete 08/08/25 17:37 Nose MRSA Screen - Final Complete 08/07/25 07:15 Blood Blood Culture - Final NO GROWTH AFTER 5 DAYS OF INCUBATION. Complete Problem List/Assessment/Plan Problems(with codes): (1) Acute myopericarditis Problem List/Assessment/Plan doing well, labs improving on room air -switch solumedrol to oral prednisone 40mg daily, taper by 10mg every 3 days then d/c and see how he responds -will sign off since autoimmune causes of his myopericarditis appear less likely at this stage, would recommend reconsulting rheumatology if his chest pain reoccurs or ILIA level returns high -case discussed with hospitalist transition lead today. Plan discussed with: Other (hospitalist Dr. Kim) Dietary Evaluation Review Comments: Monitor PO intke and lab values Expected Outcomes/Goals: Follow a Cardiac Diet NANO CHAVARRIA MD Aug 13, 2025 09:44
--- NOTE | 2025-08-13 17:05 | DVHPN2 ---
Subjective I am assuming the care of the patient from today onwards. Patient is off of pressors currently on the tele floor denies any chest pain. Reviewed: Care Plan, Labs, Medications, Previous Orders, Radiology Changes from previous H/P or p: No Changes General: Per HPI Cardiovascular: Chest Pain Gastrointestinal: Nausea, Vomiting Objective Vitals Vital Signs Date Time Temp Pulse Resp B/P (MAP) Pulse Ox O2 Delivery O2 Flow Rate FiO2 08/13/25 16:53 97.8 88 17 105/56 (72) 95 97.8 08/13/25 08:05 Room Air* 0 21 Intake/Output Intake and Output 08/13/25 07:00 Intake Total 1200 ml Output Total 800 ml Balance 400 ml Intake Oral 1200 ml Output Urine Total 800 ml # Voids 5 Exam HEENT pupils are reactive Neck is supple CV is S1-S2 regular rate and rhythm Respiratory diminished breath sounds bases GI positive bowel sound 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 General Appearance: Alert, Oriented X3, Cooperative HEENT: Atraumatic, PERRLA Lungs: Clear to auscultation, Normal air movement Cardiovascular: Regular rate, Normal S1, Normal S2 Abdomen: Normal bowel sounds, Soft, No tenderness, No hepatospenomegaly Genitourinary: No Apparent Abnormalities Neuro: Normal gait, Normal speech Skin: Dry, Intact Psych/Mental Status: Mental status NL, Mood NL Medications Current Medications Medications Dose Ordered Sig/Luan Route Start Time Stop Time Status Last Admin Dose Admin Aspirin 81 mg DAILY PO 08/05/25 10:00 08/13/25 08:34 81 MG Atorvastatin Calcium 40 mg HS PO 08/04/25 22:00 08/12/25 21:55 40 MG Ondansetron HCl 4 mg Q4HP PRN IV 08/04/25 15:30 08/06/25 02:12 4 MG Morphine Sulfate 2 mg Q30M PRN IV 08/04/25 15:30 Pantoprazole Sodium 40 mg DAILY IV 08/04/25 16:15 08/13/25 08:34 40 MG Acetaminophen 650 mg Q6HP PRN PO 08/07/25 05:15 08/07/25 05:40 650 MG Docusate Sodium 100 mg HS PO 08/09/25 22:00 08/12/25 21:55 100 MG Prednisone 40 mg DAILY PO 08/13/25 10:00 08/13/25 08:34 40 MG Laboratory Results Laboratory Tests 08/13/25 05:12 Chemistry Test 08/13/25 05:12 Calcium Level 9.1 mg/dL (8.7-10.4) Urinalysis Test 08/04/25 19:59 08/08/25 14:35 08/12/25 09:30 Urine Hyaline Casts Few /lpf (0 - 2) Urine Sperm Present /hpf (None Seen) Urine Sodium 32 mmol/L (40-220) L Urine Color Yellow (Yellow) Urine Clarity Clear (Clear) Urine pH 6.0 (5.0-9.0) Urine Specific [place] 1.027 (1.001-1.035) Urine Protein Negative (Negative) Urine Ketones Negative (Negative) Urine Blood Negative /uL (Negative) Urine Nitrite Negative (Negative) Urine Bilirubin Negative (Negative) Urine Urobilinogen Normal mg/dL (Negative) Urine Leukocyte Esterase Negative /uL (Negative) Urine RBC 1 /hpf (0 - 3) Urine Microscopic WBC < 1 /HPF (0-3) Urine Squamous Epithelial Cells None seen /hpf (<5) Urine Bacteria None seen /hpf (None Seen) Urine Mucus Few (None Seen) Urine Creatinine 142.47 mg/dL (30.0-125.0) H Urine Protein/Creatinine Ratio 0.12 Urine Glucose Normal mg/dL (Normal) Urine Total Protein 17.3 mg/dL (1-14) H Microbiology Microbiology Date/Time Source Procedure Growth Status 08/09/25 09:00 Voided Urine Urine Culture - Final Complete 08/08/25 17:37 Nose MRSA Screen - Final Complete 08/07/25 07:15 Blood Blood Culture - Final NO GROWTH AFTER 5 DAYS OF INCUBATION. Complete Assessment/Plan Assessment/Plan 79-year-old male initially presented to the hospital with the chest pain found to have 1. Cardiogenic shock currently resolved 2. Acute myopericarditis 3. Transaminitis 4. Elevated rheumatoid factor -taper of prednisone, discontinue Solu-Medrol, discharge plan once okay with the Cardiology. ology Plan discussed with: Patient Problem List: (1) NSTEMI (non-ST elevated myocardial infarction) (2) Hypotension (3) Acute myopericarditis Date of Service: Aug 13, 2025 Billing Provider: LUTHER SUN MD Common Visit Codes: [id number] INP/OBS CARE(HIGH) LUTHER SUN MD Aug 13, 2025 17:05
--- NOTE | 2025-08-13 22:52 | DVHPN2 ---
Subjective DOS: 08/13/2025 Patient seen and examined at bedside. Breathing comfortably on room air. Overnight events reviewed. Reviewed: Care Plan, Labs, Medications, Previous Orders, Radiology Changes from previous H/P or p: No Changes General: Per HPI Cardiovascular: Chest Pain Gastrointestinal: Nausea, Vomiting Objective Vitals Vital Signs Date Time Temp Pulse Resp B/P (MAP) Pulse Ox O2 Delivery O2 Flow Rate FiO2 08/13/25 16:53 97.8 88 17 105/56 (72) 95 97.8 08/13/25 08:05 Room Air* 0 21 Intake/Output Intake and Output 08/13/25 07:00 Intake Total 1200 ml Output Total 800 ml Balance 400 ml Intake Oral 1200 ml Output Urine Total 800 ml # Voids 5 Exam Gen.: Patient lying in bed in no apparent distress. Breathing on room air. Head: Normocephalic, atraumatic. Eyes: EOMI/PERRLA. Ears: Normal hearing. Normal anatomy. Neck/trachea: Trachea midline, supple. Nose: Normal external anatomy. Mouth: Moist mucous membranes. Chest: Decreased air entry bilaterally. No wheezing or rhonchi. Cardiovascular: Positive S1, positive S2. Regular rate and rhythm. Abdomen: Positive bowel sounds in all 4 quadrants. Soft, non-tender, non- distended. : Deferred. Rectal: Deferred. Skin: Warm, dry. Intact. Extremities: 2+ radial pulses bilaterally. No lower extremity edema. Neuro: Awake, alert, oriented x3. No gross motor or sensory deficits. Cranial nerves II through XII intact. Gait not assessed. General Appearance: Alert, Oriented X3, Cooperative HEENT: Atraumatic, PERRLA Lungs: Clear to auscultation, Normal air movement Cardiovascular: Regular rate, Normal S1, Normal S2 Abdomen: Normal bowel sounds, Soft, No tenderness, No hepatospenomegaly Genitourinary: No Apparent Abnormalities Neuro: Normal gait, Normal speech Skin: Dry, Intact Psych/Mental Status: Mental status NL, Mood NL Medications Current Medications Medications Dose Ordered Sig/Luan Route Start Time Stop Time Status Last Admin Dose Admin Aspirin 81 mg DAILY PO 08/05/25 10:00 08/13/25 08:34 81 MG Atorvastatin Calcium 40 mg HS PO 08/04/25 22:00 08/13/25 21:57 40 MG Ondansetron HCl 4 mg Q4HP PRN IV 08/04/25 15:30 08/06/25 02:12 4 MG Morphine Sulfate 2 mg Q30M PRN IV 08/04/25 15:30 Pantoprazole Sodium 40 mg DAILY IV 08/04/25 16:15 08/13/25 08:34 40 MG Acetaminophen 650 mg Q6HP PRN PO 08/07/25 05:15 08/07/25 05:40 650 MG Docusate Sodium 100 mg HS PO 08/09/25 22:00 08/13/25 21:55 100 MG Prednisone 40 mg DAILY PO 08/13/25 10:00 08/13/25 08:34 40 MG Laboratory Results Laboratory Tests 08/13/25 05:12 Chemistry Test 08/13/25 05:12 Calcium Level 9.1 mg/dL (8.7-10.4) Urinalysis Test 08/04/25 19:59 08/08/25 14:35 08/12/25 09:30 Urine Hyaline Casts Few /lpf (0 - 2) Urine Sperm Present /hpf (None Seen) Urine Sodium 32 mmol/L (40-220) L Urine Color Yellow (Yellow) Urine Clarity Clear (Clear) Urine pH 6.0 (5.0-9.0) Urine Specific [place] 1.027 (1.001-1.035) Urine Protein Negative (Negative) Urine Ketones Negative (Negative) Urine Blood Negative /uL (Negative) Urine Nitrite Negative (Negative) Urine Bilirubin Negative (Negative) Urine Urobilinogen Normal mg/dL (Negative) Urine Leukocyte Esterase Negative /uL (Negative) Urine RBC 1 /hpf (0 - 3) Urine Microscopic WBC < 1 /HPF (0-3) Urine Squamous Epithelial Cells None seen /hpf (<5) Urine Bacteria None seen /hpf (None Seen) Urine Mucus Few (None Seen) Urine Creatinine 142.47 mg/dL (30.0-125.0) H Urine Protein/Creatinine Ratio 0.12 Urine Glucose Normal mg/dL (Normal) Urine Total Protein 17.3 mg/dL (1-14) H Microbiology Microbiology Date/Time Source Procedure Growth Status 08/09/25 09:00 Voided Urine Urine Culture - Final Complete 08/08/25 17:37 Nose MRSA Screen - Final Complete 08/07/25 07:15 Blood Blood Culture - Final NO GROWTH AFTER 5 DAYS OF INCUBATION. Complete Assessment/Plan Assessment/Plan Impression: Myocarditis Atelectasis Elevated troponins Cardiogenic shock Events: Breathing on room air Supplemental oxygen PRN No overnight events. Remains off pressors, hemodynamically stable Continue IV steroids for pericarditis Continue ASA. Incentive spirometry Recommend outpatient followup with Rheumatology. Patient is stable for discharge from the pulmonary standpoint. Labs and imaging reviewed. Rest of plan as noted below. Plan: Supplemental oxygen PRN Titrate to keep O2 sats above 92%. Follow up Cardiology recs Completed antibiotics IV steroids for pericarditis Incentive spirometry for atelectasis Rheumatology outpatient followup recommended. Monitor renal function. Monitor electrolytes. Supplement as necessary. Monitor ins and outs. DVT prophylaxis. Prognosis: Poor given patient's multiple co-morbidities. Rest of plan per hospitalist and other consultants. Thank you, ANGEL Richardson, for allowing me to participate in this patient's care. Further recommendations will depend on the patient's clinical course. Please do not hesitate to contact me if you have any questions or concerns. This medical document was created using an electronic medical record system with [employer] dictation system. Although these documentations are being carefully reviewed, there may still be some phonetic and typographical changes. The errors are purely typographical, due to imperfection on the software program, and do not reflect any compromise in the patient's medical care. Plan discussed with: Patient, Other (DARIAN Mendoza) Visit Coding Pulmonary Billing Provider: SIMEON GIRALDO MD Date of Service if different f: Aug 13, 2025 Common Visit Codes: [id number] INP/OBS CARE(HIGH) SIMEON GIRALDO MD Aug 13, 2025 22:52
[2025-08-14] VITALS (9 sets, daily range): BP systolic 96–110; BP diastolic 52–69; PULSE 63–96; RESP 16–19; TEMP 97.6–98.5; O2SAT 96–99
--- NOTE | 2025-08-14 17:22 | DVHPN2 ---
Subjective Patient is off of pressors currently on the tele floor denies any chest pain. Reviewed: Care Plan, Labs, Medications, Previous Orders, Radiology Changes from previous H/P or p: No Changes General: Per HPI Cardiovascular: Chest Pain Gastrointestinal: Nausea, Vomiting Objective Vitals Vital Signs Date Time Temp Pulse Resp B/P (MAP) Pulse Ox O2 Delivery O2 Flow Rate FiO2 08/14/25 17:00 97.6 81 17 101/52 (68) 98 97.6 08/14/25 08:21 Room Air* 0 21 Intake/Output Intake and Output 08/14/25 07:00 Intake Total 1870 ml Output Total 3570 ml Balance -1700 ml Intake Oral 1870 ml Output Urine Total 3570 ml Exam HEENT pupils are reactive Neck is supple CV is S1-S2 regular rate and rhythm Respiratory diminished breath sounds bases GI positive bowel sound 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 General Appearance: Alert, Oriented X3, Cooperative HEENT: Atraumatic, PERRLA Lungs: Clear to auscultation, Normal air movement Cardiovascular: Regular rate, Normal S1, Normal S2 Abdomen: Normal bowel sounds, Soft, No tenderness, No hepatospenomegaly Genitourinary: No Apparent Abnormalities Neuro: Normal gait, Normal speech Skin: Dry, Intact Psych/Mental Status: Mental status NL, Mood NL Medications Current Medications Medications Dose Ordered Sig/Luan Route Start Time Stop Time Status Last Admin Dose Admin Aspirin 81 mg DAILY PO 08/05/25 10:00 08/14/25 10:26 81 MG Atorvastatin Calcium 40 mg HS PO 08/04/25 22:00 08/13/25 21:57 40 MG Ondansetron HCl 4 mg Q4HP PRN IV 08/04/25 15:30 08/06/25 02:12 4 MG Morphine Sulfate 2 mg Q30M PRN IV 08/04/25 15:30 Pantoprazole Sodium 40 mg DAILY IV 08/04/25 16:15 08/14/25 10:25 40 MG Acetaminophen 650 mg Q6HP PRN PO 08/07/25 05:15 08/07/25 05:40 650 MG Docusate Sodium 100 mg HS PO 08/09/25 22:00 08/13/25 21:55 100 MG Prednisone 40 mg DAILY PO 08/13/25 10:00 08/14/25 10:25 40 MG Laboratory Results Laboratory Tests 08/13/25 05:12 Urinalysis Test 08/04/25 19:59 08/08/25 14:35 08/12/25 09:30 Urine Hyaline Casts Few /lpf (0 - 2) Urine Sperm Present /hpf (None Seen) Urine Sodium 32 mmol/L (40-220) L Urine Color Yellow (Yellow) Urine Clarity Clear (Clear) Urine pH 6.0 (5.0-9.0) Urine Specific [place] 1.027 (1.001-1.035) Urine Protein Negative (Negative) Urine Ketones Negative (Negative) Urine Blood Negative /uL (Negative) Urine Nitrite Negative (Negative) Urine Bilirubin Negative (Negative) Urine Urobilinogen Normal mg/dL (Negative) Urine Leukocyte Esterase Negative /uL (Negative) Urine RBC 1 /hpf (0 - 3) Urine Microscopic WBC < 1 /HPF (0-3) Urine Squamous Epithelial Cells None seen /hpf (<5) Urine Bacteria None seen /hpf (None Seen) Urine Mucus Few (None Seen) Urine Creatinine 142.47 mg/dL (30.0-125.0) H Urine Protein/Creatinine Ratio 0.12 Urine Glucose Normal mg/dL (Normal) Urine Total Protein 17.3 mg/dL (1-14) H Microbiology Microbiology Date/Time Source Procedure Growth Status 08/09/25 09:00 Voided Urine Urine Culture - Final Complete 08/08/25 17:37 Nose MRSA Screen - Final Complete 08/07/25 07:15 Blood Blood Culture - Final NO GROWTH AFTER 5 DAYS OF INCUBATION. Complete Assessment/Plan Assessment/Plan 79-year-old male initially presented to the hospital with the chest pain found to have 1. Cardiogenic shock currently resolved 2. Acute myopericarditis 3. Transaminitis 4. Elevated rheumatoid factor -taper of prednisone, discontinue Solu-Medrol, discharge plan once okay with the Cardiology. ology Plan discussed with: Patient Date of Service: Aug 14, 2025 Billing Provider: LUTHER SUN MD Common Visit Codes: [id number] INP/OBS CARE(HIGH) LTUHER SUN MD Aug 14, 2025 17:22
[2025-08-14] MEDS: SENNA 8.6 MG TAB PO SCH (21:01)
[2025-08-15] VITALS (7 sets, daily range): BP systolic 96–110; BP diastolic 60–72; PULSE 60–78; RESP 14–19; TEMP 97.7–98.7; O2SAT 97–98
--- NOTE | 2025-08-15 11:15 | DVHDS2 ---
Discharge Summary Date of Admission Aug 04, 2025 at 15:29 Date of Discharge: Aug 08, 2025 Admitting Diagnosis NSTEMI Labs/Diagnostic Data: Laboratory Results Test 08/13/25 05:12 08/12/25 09:30 08/11/25 02:52 08/10/25 23:05 White Blood Count 7.7 10^3/uL (4.4-10.8) Red Blood Count 4.72 10^6/uL (4.5-5.90) Hemoglobin 12.9 g/dL (13.5-17.5) Hematocrit 39.8 % (41.0-53.0) Mean Corpuscular Volume 84.2 fL (80.0-100.0) Mean Corpuscular Hemoglobin 27.4 pg (28.0-32.0) Mean Corpuscular Hemoglobin Concent 32.5 g/dL (32.0-36.0) Red Cell Distribution Width 13.6 % (11.8-14.3) Platelet Count 311 10^3/uL (140-450) Mean Platelet Volume 7.9 fL (6.9-10.8) Neutrophils (%) (Auto) 61.3 % (37.0-80.0) Lymphocytes (%) (Auto) 31.4 % (10.0-50.0) Monocytes (%) (Auto) 6.7 % (0.0-12.0) Eosinophils (%) (Auto) 0.6 % (0.0-7.0) Basophils (%) (Auto) 0.0 % (0.0-2.0) Neutrophils # (Auto) 4.7 10 ^3/uL (1.6-8.6) Lymphocytes # (Auto) 2.4 10 ^3/uL (0.4-5.4) Monocytes # (Auto) 0.5 10 ^3/uL (0-1.3) Eosinophils # (Auto) 0 10 ^3/uL (0-0.8) Basophils # (Auto) 0 10 ^3/uL (0-0.2) Nucleated Red Blood Cells 0.1 % Sodium Level 140 mmol/L (136-145) Potassium Level 4.5 mmol/L (3.5-5.1) Chloride Level 103 mmol/L (98-107) Carbon Dioxide Level 30 mmol/L (20-31) Anion Gap 7 (5-15) Blood Urea Nitrogen 20 mg/dL (9-23) Creatinine 1.06 mg/dL (0.700-1.30) Glomerular Filtration Rate Calc 93 mL/min (>90) BUN/Creatinine Ratio 18.9 (10.0-20.0) Serum Glucose 83 mg/dL (74-106) Calcium Level 9.1 mg/dL (8.7-10.4) Urine Color Yellow (Yellow) Urine Clarity Clear (Clear) Urine pH 6.0 (5.0-9.0) Urine Specific [place] 1.027 (1.001-1.035) Urine Protein Negative (Negative) Urine Ketones Negative (Negative) Urine Blood Negative /uL (Negative) Urine Nitrite Negative (Negative) Urine Bilirubin Negative (Negative) Urine Urobilinogen Normal mg/dL (Negative) Urine Leukocyte Esterase Negative /uL (Negative) Urine RBC 1 /hpf (0 - 3) Urine Microscopic WBC < 1 /HPF (0-3) Urine Squamous Epithelial Cells None seen /hpf (<5) Urine Bacteria None seen /hpf (None Seen) Urine Mucus Few (None Seen) Urine Creatinine 142.47 mg/dL (30.0-125.0) Urine Protein/Creatinine Ratio 0.12 Urine Glucose Normal mg/dL (Normal) Urine Total Protein 17.3 mg/dL (1-14) Total Bilirubin 0.4 mg/dL (0.2-1.0) Aspartate Amino Transferase (AST) 23 U/L (13-40) Alanine Aminotransferase (ALT) 49 U/L (7-40) Alkaline Phosphatase 64 U/L (46-116) Total Protein 6.6 g/dL (5.7-8.2) Albumin 3.6 g/dL (3.2-4.8) Erythrocyte Sedimentation Rate 15 mm/hr (0-20) C-Reactive Protein High Sensitivity 2.11 mg/dL (<1.0) Angiotensin Converting Enzyme 17 U/L (14-82) Anti-Nuclear Antibody Screen Negative (Negative) Complement C3 158 mg/dL (82-167) Complement C4 31 mg/dL (12-38) Test 08/10/25 09:51 08/09/25 02:52 08/08/25 14:35 08/08/25 10:52 Anti-Nuclear Antibody Comment Comment (.) REG-1 Antibody <0.2 AI (0.0-0.9) SS-A/Ro Antibody <0.2 AI (0.0-0.9) SS-B/La Antibody <0.2 AI (0.0-0.9) Sm Antibody <0.2 AI (0.0-0.9) [employer]ER Antibody <0.2 AI (0.0-0.9) Scl-70 (Scleroderma) Antibody <0.2 AI (0.0-0.9) Anti-Double Strand DNA Antibody <1 IU/mL (0-9) Chromatin Antibody <0.2 AI (0.0-0.9) Centromere B Antibody <0.2 AI (0.0-0.9) Magnesium Level 2.3 mg/dL (1.6-2.6) Urine Sodium 32 mmol/L (40-220) Rheumatoid Factor 22.7 IU/mL (<14.0) Cytomegalovirus IgG Antibody <0.60 U/mL (0.00-0.59) Cytomegalovirus IgM Antibody <30.0 AU/mL (0.0-29.9) Test 08/07/25 03:00 08/06/25 12:27 08/05/25 02:35 08/04/25 22:40 Lactic Acid Level 1.7 mmol/L (0.4-2.0) Blood Gas Specimen Type Venous Blood Gas Sample Site Central line Blood Gas Patient Temperature 37.0 Arterial Blood Date Drawn [id number] [place] Test N/a Venous Blood pH 7.386 (7.320-7.430) Venous Blood pCO2 at Patient Temp 43.5 mmHg (38.0-54.0) Venous Blood pO2 at Patient Temp < 36.5 mmHg (23.0-48.0) Venous Blood HCO3 25.5 mmol/L (22.0-29.0) Venous Blood Base Excess 0.2 mmol/L (-2.0-3.0) Blood Gas Modality Room air FiO2 % 21.0 Specimen Drawn By javid Forrest Troponin I High Sensitivity 65054 ng/L (</=54) Triglycerides Level 67 mg/dL (< 150) Cholesterol Level 118 mg/dL (< 200) LDL Cholesterol 75 mg/dL (< 100) HDL Cholesterol 32 mg/dL (40-59) Prothrombin Time 11.9 sec (9.3-11.8) Prothrombin Time INR 1.14 (0.9-1.15) Activated Partial Thromboplast Time 30.6 SEC (24.5-34.5) Test 08/04/25 19:59 08/04/25 14:55 08/04/25 14:45 08/04/25 14:11 Urine Hyaline Casts Few /lpf (0 - 2) Urine Sperm Present /hpf (None Seen) Urine Opiates Screen Neg (NEGATIVE) Urine Fentanyl Screen Neg (NEGATIVE) Urine Barbiturates Screen Neg (NEGATIVE) Urine Phencyclidine Screen Neg (NEGATIVE) Urine Amphetamines Screen Neg (NEGATIVE) Urine Benzodiazepines Screen Neg (NEGATIVE) Urine Cocaine Screen Neg (NEGATIVE) Urine Cannabinoids Screen Neg (NEGATIVE) SARS-CoV-2 Antigen (Rapid) Negative (NEGATIVE) Influenza Type A Antigen Negative (Negative) Influenza Type B Antigen Negative (Negative) Hemoglobin A1c 5.4 % A1C (<5.7) Lactate Dehydrogenase 259 U/L (120-246) B-Type Natriuretic Peptide 123.49 pg/mL (0-100) Thyroid Stimulating Hormone (TSH) 1.69 uIU/mL (0.55-4.78) Free Thyroxine (T4) Calculated 0.86 ng/dL (0.89-1.76) Other Laboratory Tests 08/13/25 05:12 Brief Hx & Hospital Course: History of Present Illness Ankur Wiggins is a 39-year-old male with no past medical history who presents to the ED with chest pain, nausea, and vomiting that started yesterday. Patient reports that he is incarcerated and symptoms began yesterday around 9:00 a.m. after he ate potatoes and spread. Patient reports the chest pain 9/10 pressure- like and intermittent, nonradiating. Patient also reports that his headache is 9/10 feels like a migraine in his constant in nature. He reports that there are no triggering or alleviating factors. Patient also reports that there are 2 other inmates that have the same symptoms that he has. Initial 12 lead EKG shows normal sinus rhythm with ST segment depression to inferior leads and baseline wander in leads V2 and V5[place] [address] with lactate of 259. Patient denies tobacco use, drug use, or alcohol use. Patient denies recent trauma or injury, recent travels, recent ingestion of spoiled food, fever, chills, weakness, dizziness, abdominal pain, diarrhea, or urinary symptoms. Course of hospitalization: Patient was taken to cardiac catheterization lab, found to have no CAD requiring intervention. Patient's left ventricular ejection fraction repeat decreased 40%. Patient was also noted to have severe cardiogenic shock with noted perfusion issues. Efforts were made to transfer patient to higher level of care for possible mechanical left ventricular assistance if worsening shock with organ dysfunction was noted. Difficulties were found on transferred with the patient, was finding accepting facility given patient is from the correctional facility. Patient was subsequently weaned off of both norepinephrine and dopamine drip. CMV was found to be negative. Patient was also checked as far as rheumatoid factor as well as inflammatory markers. He was started on IV Solu-Medrol with improvement with the patient's ESR and CRP. Rheumatology consultation was also obtained. At this time, impression is viral etiology, not autoimmune disorder. Patient will be discharged today, with tapering dose of oral prednisone. This was discussed with the patient who is agreeable. All questions answered. Physical examination General: Alert and Oriented x3. No acute distress. Well-nourished. Eyes: EOMI. Anicteric. HENT: Moist mucous membranes. Lungs: Clear to auscultation bilaterally. No accessory muscle use. Cardiovascular: Regular rate and rhythm. No murmur. No JVD. Abdomen: Soft, non-tender and non-distended. No palpable masses. Extremities: No edema. Non-tender. Skin: No rashes or lesions. Warm. Neurologic: No focal neurological deficits. CN II-XII grossly intact, but not individually tested. Psychiatric: Cooperative. Appropriate mood and affect. Total time spent with patient discussing and formulating plan of care: 35 minutes. This medical document was created using an electronic medical record system with [employer] dictation system. Although this document has been carefully reviewed, there may still be some phonetic and typographical errors. These areas are purely typographical due to imperfections of the software programs, and do not reflect any compromise in the patient's medical care. Operations or Procedures Left heart catheterization Condition at Discharge: Fair Final Diagnosis/Problems List Cardiogenic shock with myocarditis -NSTEMI type 2 -myocarditis -transaminitis -cardiogenic shock Discharge Disposition: Home Discharge Instruct/Medications Diet: Consistent carbohydrate Activity: No Restrictions, As Tolerated Follow Up/Referral: Follow up with PCP in 1-2 weeks Medications: Prednisone 30 mg p.o. daily x3 days starting on 08/16/25. Then decrease to 20 mg p.o. daily x3 days, followed by 10 mg p.o. daily x3 days with cessation of treatment thereafter. 36 Discharge Statement: "Patient was advised to return to the ER or call 911 if any headaches, dizziness, shortness of breath, chest pain, abdominal pain, bleeding, fevers, or worsening of medical condition. Patient was counseled about treatment plan, medications, possible side effects, patientverbalized understanding. All questions were answered to the best of my ability. This discharge took greater then 30 minutes in planning, reviewing documentation, counseling the patient, and discussing with other team members." ASSESSMENT ASSESSMENT Assessment Cardiogenic shock with myocarditis Date of Service: Aug 15, 2025 Billing Provider: MAGED LEE NP Common Visit Codes: 85017-OYK/OBS DISCH DAY >30min MAGED LEE NP Aug 15, 2025 11:15
--- NOTE | 2025-08-15 23:43 | DVHPN2 ---
Subjective DOS: 08/14/2025 Patient seen and examined at bedside. Breathing comfortably on room air. Overnight events reviewed. Reviewed: Care Plan, Labs, Medications, Previous Orders, Radiology Changes from previous H/P or p: No Changes General: Per HPI Cardiovascular: Chest Pain Gastrointestinal: Nausea, Vomiting Objective Vitals Vital Signs Date Time Temp Pulse Resp B/P (MAP) Pulse Ox O2 Delivery O2 Flow Rate FiO2 08/15/25 13:00 98.3 73 14 96/60 (72) 98 98.3 08/15/25 08:25 Room Air* 0 21 Intake/Output Intake and Output 08/15/25 07:00 Intake Total 2350 ml Output Total 2625 ml Balance -275 ml Intake Oral 2350 ml Output Urine Total 2625 ml # Voids 4 Exam Gen.: Patient lying in bed in no apparent distress. Breathing on room air. Head: Normocephalic, atraumatic. Eyes: EOMI/PERRLA. Ears: Normal hearing. Normal anatomy. Neck/trachea: Trachea midline, supple. Nose: Normal external anatomy. Mouth: Moist mucous membranes. Chest: Decreased air entry bilaterally. No wheezing or rhonchi. Cardiovascular: Positive S1, positive S2. Regular rate and rhythm. Abdomen: Positive bowel sounds in all 4 quadrants. Soft, non-tender, non- distended. : Deferred. Rectal: Deferred. Skin: Warm, dry. Intact. Extremities: 2+ radial pulses bilaterally. No lower extremity edema. Neuro: Awake, alert, oriented x3. No gross motor or sensory deficits. Cranial nerves II through XII intact. Gait not assessed. General Appearance: Alert, Oriented X3, Cooperative HEENT: Atraumatic, PERRLA Lungs: Clear to auscultation, Normal air movement Cardiovascular: Regular rate, Normal S1, Normal S2 Abdomen: Normal bowel sounds, Soft, No tenderness, No hepatospenomegaly Genitourinary: No Apparent Abnormalities Neuro: Normal gait, Normal speech Skin: Dry, Intact Psych/Mental Status: Mental status NL, Mood NL Laboratory Results Laboratory Tests 08/13/25 05:12 Urinalysis Test 08/04/25 19:59 08/08/25 14:35 08/12/25 09:30 Urine Hyaline Casts Few /lpf (0 - 2) Urine Sperm Present /hpf (None Seen) Urine Sodium 32 mmol/L (40-220) L Urine Color Yellow (Yellow) Urine Clarity Clear (Clear) Urine pH 6.0 (5.0-9.0) Urine Specific [place] 1.027 (1.001-1.035) Urine Protein Negative (Negative) Urine Ketones Negative (Negative) Urine Blood Negative /uL (Negative) Urine Nitrite Negative (Negative) Urine Bilirubin Negative (Negative) Urine Urobilinogen Normal mg/dL (Negative) Urine Leukocyte Esterase Negative /uL (Negative) Urine RBC 1 /hpf (0 - 3) Urine Microscopic WBC < 1 /HPF (0-3) Urine Squamous Epithelial Cells None seen /hpf (<5) Urine Bacteria None seen /hpf (None Seen) Urine Mucus Few (None Seen) Urine Creatinine 142.47 mg/dL (30.0-125.0) H Urine Protein/Creatinine Ratio 0.12 Urine Glucose Normal mg/dL (Normal) Urine Total Protein 17.3 mg/dL (1-14) H Microbiology Microbiology Date/Time Source Procedure Growth Status 08/09/25 09:00 Voided Urine Urine Culture - Final Complete 08/08/25 17:37 Nose MRSA Screen - Final Complete 08/07/25 07:15 Blood Blood Culture - Final NO GROWTH AFTER 5 DAYS OF INCUBATION. Complete Assessment/Plan Assessment/Plan Impression: Myocarditis Atelectasis Elevated troponins Cardiogenic shock Events: Breathing on room air Supplemental oxygen PRN No overnight events. Remains off pressors, hemodynamically stable IV steroids for pericarditis Plan to taper steroids Follow up Cardiology recs Continue ASA. Incentive spirometry Recommend outpatient followup with Rheumatology. Patient is stable for discharge from the pulmonary standpoint. Labs and imaging reviewed. Rest of plan as noted below. Plan: Supplemental oxygen PRN Titrate to keep O2 sats above 92%. Follow up Cardiology recs Completed antibiotics IV steroids for pericarditis Incentive spirometry for atelectasis Rheumatology outpatient followup recommended. Monitor renal function. Monitor electrolytes. Supplement as necessary. Monitor ins and outs. DVT prophylaxis. Prognosis: Poor given patient's multiple co-morbidities. Rest of plan per hospitalist and other consultants. Thank you, ANGEL Richardson, for allowing me to participate in this patient's care. Further recommendations will depend on the patient's clinical course. Please do not hesitate to contact me if you have any questions or concerns. This medical document was created using an electronic medical record system with Dragon computerized dictation system. Although these documentations are being carefully reviewed, there may still be some phonetic and typographical changes. The errors are purely typographical, due to imperfection on the software program, and do not reflect any compromise in the patient's medical care. Plan discussed with: Patient, Other (RN) Visit Coding Pulmonary Billing Provider: SIMEON GIRALDO MD Date of Service if different f: Aug 14, 2025 Common Visit Codes: [id number] INP/OBS CARE(HIGH) SIMEON GIRALDO MD Aug 15, 2025 23:43
--- NOTE | 2025-08-16 04:50 | DVHPN2 ---
Subjective DOS: 08/15/2025 Patient seen and examined at bedside. Breathing comfortably on room air. Overnight events reviewed. Reviewed: Care Plan, Labs, Medications, Previous Orders, Radiology Changes from previous H/P or p: No Changes General: Per HPI Cardiovascular: Chest Pain Gastrointestinal: Nausea, Vomiting Objective Vitals Vital Signs Date Time Temp Pulse Resp B/P (MAP) Pulse Ox O2 Delivery O2 Flow Rate FiO2 08/15/25 13:00 98.3 73 14 96/60 (72) 98 98.3 08/15/25 08:25 Room Air* 0 21 Exam Gen.: Patient lying in bed in no apparent distress. Breathing on room air. Head: Normocephalic, atraumatic. Eyes: EOMI/PERRLA. Ears: Normal hearing. Normal anatomy. Neck/trachea: Trachea midline, supple. Nose: Normal external anatomy. Mouth: Moist mucous membranes. Chest: Decreased air entry bilaterally. No wheezing or rhonchi. Cardiovascular: Positive S1, positive S2. Regular rate and rhythm. Abdomen: Positive bowel sounds in all 4 quadrants. Soft, non-tender, non- distended. : Deferred. Rectal: Deferred. Skin: Warm, dry. Intact. Extremities: 2+ radial pulses bilaterally. No lower extremity edema. Neuro: Awake, alert, oriented x3. No gross motor or sensory deficits. Cranial nerves II through XII intact. Gait not assessed. General Appearance: Alert, Oriented X3, Cooperative HEENT: Atraumatic, PERRLA Lungs: Clear to auscultation, Normal air movement Cardiovascular: Regular rate, Normal S1, Normal S2 Abdomen: Normal bowel sounds, Soft, No tenderness, No hepatospenomegaly Genitourinary: No Apparent Abnormalities Neuro: Normal gait, Normal speech Skin: Dry, Intact Psych/Mental Status: Mental status NL, Mood NL Laboratory Results Laboratory Tests 08/13/25 05:12 Urinalysis Test 08/04/25 19:59 08/08/25 14:35 08/12/25 09:30 Urine Hyaline Casts Few /lpf (0 - 2) Urine Sperm Present /hpf (None Seen) Urine Sodium 32 mmol/L (40-220) L Urine Color Yellow (Yellow) Urine Clarity Clear (Clear) Urine pH 6.0 (5.0-9.0) Urine Specific [place] 1.027 (1.001-1.035) Urine Protein Negative (Negative) Urine Ketones Negative (Negative) Urine Blood Negative /uL (Negative) Urine Nitrite Negative (Negative) Urine Bilirubin Negative (Negative) Urine Urobilinogen Normal mg/dL (Negative) Urine Leukocyte Esterase Negative /uL (Negative) Urine RBC 1 /hpf (0 - 3) Urine Microscopic WBC < 1 /HPF (0-3) Urine Squamous Epithelial Cells None seen /hpf (<5) Urine Bacteria None seen /hpf (None Seen) Urine Mucus Few (None Seen) Urine Creatinine 142.47 mg/dL (30.0-125.0) H Urine Protein/Creatinine Ratio 0.12 Urine Glucose Normal mg/dL (Normal) Urine Total Protein 17.3 mg/dL (1-14) H Microbiology Microbiology Date/Time Source Procedure Growth Status 08/09/25 09:00 Voided Urine Urine Culture - Final Complete 08/08/25 17:37 Nose MRSA Screen - Final Complete 08/07/25 07:15 Blood Blood Culture - Final NO GROWTH AFTER 5 DAYS OF INCUBATION. Complete Assessment/Plan Assessment/Plan Impression: Myocarditis Atelectasis Elevated troponins Cardiogenic shock Events: Breathing on room air Supplemental oxygen PRN No overnight events. Remains off pressors, hemodynamically stable Tapered IV steroids for pericarditis On PO prednisone Cardiology recs appreciated Continue ASA. Incentive spirometry Recommend outpatient followup with Rheumatology. Patient is stable for discharge from the pulmonary standpoint. Disposition per hospitalist Labs and imaging reviewed. Rest of plan as noted below. Plan: Supplemental oxygen PRN Titrate to keep O2 sats above 92%. Follow up Cardiology recs Completed antibiotics IV steroids for pericarditis Incentive spirometry for atelectasis Rheumatology outpatient followup recommended. Monitor renal function. Monitor electrolytes. Supplement as necessary. Monitor ins and outs. DVT prophylaxis. Prognosis: Poor given patient's multiple co-morbidities. Rest of plan per hospitalist and other consultants. Thank you, ANGEL Richardson, for allowing me to participate in this patient's care. Further recommendations will depend on the patient's clinical course. Please do not hesitate to contact me if you have any questions or concerns. This medical document was created using an electronic medical record system with [employer] system. Although these documentations are being carefully reviewed, there may still be some phonetic and typographical changes. The errors are purely typographical, due to imperfection on the software program, and do not reflect any compromise in the patient's medical care. Plan discussed with: Patient, Other (RN) Visit Coding Pulmonary Billing Provider: SIMEON GIRALDO MD Date of Service if different f: Aug 15, 2025 Common Visit Codes: [id number] INP/OBS CARE(HIGH) SIMEON GIRALDO MD Aug 16, 2025 04:50
== END 2025-08-15 14:04 | disposition home or self-care (01) | DRG 280 ==
LOC: ER 13:00 → EDBD 13:00 → EEVIPCON 15:29 → OVERFLOW 15:29 → ICU CENTRL 19:28 → TELE-CENTR 08-11 22:40
PROVIDERS: ADMIT Nurse Practitioner Acute Care; ATTEND Nurse Practitioner Acute Care
PROC: 4A023N7 Measurement of Cardiac Sampling and Pressure, Left Heart, Percutaneous Approach (ICD-10-PCS; principal; 2025-08-04)
PROC: B211YZZ Fluoroscopy of Multiple Coronary Arteries using Other Contrast (ICD-10-PCS; 2025-08-04)
DX: I40.9 Acute myocarditis, unspecified (principal); R57.0 Cardiogenic shock; I21.A1 Myocardial infarction type 2; I30.9 Acute pericarditis, unspecified; N17.9 Acute kidney failure, unspecified; E87.20 Acidosis, unspecified; J98.11 Atelectasis; Z20.822 Contact with and (suspected) exposure to COVID-19; R74.01 Elevation of levels of liver transaminase levels; Z79.899 Other long term (current) drug therapy
CPT/HCPCS: 36415; 36600; 70450; 71045; 74176; 80048; 80053; 80061; 80307; 81001; 82164; 82570; 82805; 83036; 83516; 83605; 83615; 83735; 83880; 84075; 84156; 84300; 84439; 84443; 84450; 84460; 84484; 85025; 85610; 85652; 85730; 86038; 86141; 86160; 86225; 86235; 86431; 86644; 86645; 87040; 87081; 87086; 87426; 87804; 93005; 93306; 93458; 99152; 99291; 99292; G0378; J2250; J2405; J2470; Q9967